=== PATIENT | male | born 1975 ===

== ENCOUNTER 2017-08-20 19:39 | Emergency (ER) | payer OTHER ==
[2017-08-20 20:00] VITALS: RESP 16
[2017-08-20] MEDS ORDERED: Sodium Chloride 0.9% 1,000 ML IV STA (20:54)
--- NOTE | 2017-08-20 21:16 | ED PDOC ---
HPI: Abdomen Time Seen by Provider: 08/20/17 20:00 Chief Complaint (Nursing): Abdominal Pain Chief Complaint (Provider): Abdominal Pain History Per: Patient History/Exam Limitations: no limitations Onset/Duration Of Symptoms: Hrs Current Symptoms Are (Timing): Still Present Location Of Pain/Discomfort: Epigastric Quality Of Discomfort: "Pain" Associated Symptoms: Vomiting. denies: Fever, Diarrhea Additional Complaint(s): 42 year old male, with no past medical history, presents to the ED complaining of epigastric pain associated with vomiting, onset a couple hours prior to arrival. Patient states he took vitamins that contained flax seed oil that helps increase muscle tone when pain began. Denies diarrhea and fever. PMD: None provided Past Medical History Reviewed: Historical Data, Nursing Documentation, Vital Signs Vital Signs: Last Vital Signs Temp 98.2 F 08/20/17 22:46 Pulse 74 08/20/17 22:46 Resp 16 08/20/17 22:46 BP 138/76 08/20/17 22:46 Pulse Ox 98 08/20/17 22:46 - Medical History PMH: No Chronic Diseases - Surgical History Surgical History: No Surg Hx - Family History Family History: States: Unknown Family Hx - Social History Current smoker - smoking cessation education provided: No Alcohol: None Drugs: Denies - Home Medications Home Medications: Ambulatory Orders Medication Instructions Recorded Ondansetron [Zofran] 4 mg PO Q6H PRN #5 tab 08/20/17 - Allergies Allergies/Adverse Reactions: Allergies Allergy/AdvReac Type Severity Reaction Status Date / Time No Known Allergies Allergy Verified 08/20/17 19:58 Review of Systems ROS Statement: Except As Marked, All Systems Reviewed And Found Negative Constitutional: Negative for: Fever Gastrointestinal: Positive for: Vomiting, Abdominal Pain (epigastric pain ). Negative for: Diarrhea Physical Exam - Reviewed Nursing Documentation Reviewed: Yes Vital Signs Reviewed: Yes - Physical Exam Appears: Positive for: Well, Non-toxic, No Acute Distress Head Exam: Positive for: ATRAUMATIC, NORMOCEPHALIC Skin: Positive for: Normal Color, Warm, Dry Eye Exam: Positive for: EOMI, Normal appearance, PERRL ENT: Positive for: Normal ENT Inspection Neck: Positive for: Normal, Painless ROM, Supple Cardiovascular/Chest: Positive for: Regular Rate, Rhythm. Negative for: Murmur Respiratory: Positive for: Normal Breath Sounds. Negative for: Respiratory Distress Gastrointestinal/Abdominal: Positive for: Normal Exam, Bowel Sounds, Soft, Tenderness (mid-epigastric tenderness (mild)) Back: Positive for: Normal Inspection Extremity: Positive for: Normal ROM. Negative for: Pedal Edema, Deformity Neurologic/Psych: Positive for: Alert, Oriented (x3) - Laboratory Results Result Diagrams: 08/20/17 21:21 08/20/17 21:21 - ECG O2 Sat by Pulse Oximetry: 97 (RA) Pulse Ox Interpretation: Normal Medical Decision Making Medical Decision Making: Time: 2104 Plan: ABDOMINAL PAIN SP INGESTION OF FLAX SEED VITAMIN -- CMP -- Lipase -- CBC with differentials -- Morphine 4 mg IV Once -- Sodium Chloride 999 mls/hr Time: 2204 -- Patient feels better and can tolerate PO intake. Time: 2237 -- Patient stable for discharge. Patient states he fully agrees with and understands discharge instructions. States that he agrees with the plan and disposition. Verbalized and repeated discharge instructions and plan. I have given the patient opportunity to ask any additional questions. Scribe Attestation: Documented by Arnoldo Robles, acting as a scribe for Dr. Royce Hollingsworth MD. Provider Scribe Attestation: All medical record entries made by the Scribe were at my direction and personally dictated by me. I have reviewed the chart and agree that the record accurately reflects my personal performance of the history, physical exam, medical decision making, and the department course for this patient. I have also personally directed, reviewed, and agree with the discharge instructions and disposition. Disposition - Clinical Impression Clinical Impression: Abdominal pain - Patient ED Disposition Is Patient to be Admitted: No Counseled Patient/Family Regarding: Studies Performed, Diagnosis, Need For Followup - Disposition Referrals: [facility] [Outside] [facility] [Outside] Disposition: Routine/Home Disposition Time: 22:30 Condition: IMPROVED Additional Instructions: follow up with your primary doctor in 1-2 days return to the ED with any worsening or concerning symptoms avoid flax seed vitamin Prescriptions: Ondansetron [Zofran] 4 mg PO Q6H PRN #5 tab PRN Reason: Nausea/Vomiting Instructions: Nausea and Vomiting, Adult (DC) Forms: [facility] (Japanese) Print Language: SAMI
[2017-08-20 21:29] LABS: BASO # 0.1 K/uL (0.0-0.2); BASO % 0.4 % (0.0-2.0); EOS % 0.1 % (0.0-4.0); LYMPH # 1.5 K/uL (1.0-4.3); LYMPH % 10.4 % (20.0-40.0); MEAN CELL VOLUME 80.9 fl (80.0-94.0); MEAN CORPUSCULAR HGB CONC 33.3 g/dL (33.0-37.0); MEAN PLATELET VOLUME 9.1 fl (7.2-11.7); MONO # 0.5 K/uL (0.0-0.8); MONO % 3.2 % (0.0-10.0); NEUT # 12.3 K/uL (1.8-7.0); NEUT % 85.9 % (50.0-75.0); RBC 5.2 Mil/uL (4.40-5.90); RED CELL DISTRIBUTION WIDTH 14.4 % (11.5-14.5); WHITE BLOOD COUNT 14.3 K/uL (4.8-10.8)
[2017-08-20 21:34] LABS: ALB/GLOB RATIO 1.1 (1.0-2.1); ALBUMIN 4.5 g/dL (3.5-5.0); ALT/SGPT 49 U/L (21-72); AST/SGOT 25 U/L (17-59); BLOOD UREA NITROGEN 16 mg/dl (9-20); CALCIUM 9.2 mg/dL (8.4-10.2); GFR AFRICAN-AMERICAN > 60; GFR NON-AFRICAN AMERICAN > 60; LIPASE 58 U/L (23-300)
[2017-08-20 22:47] VITALS: BP 138/76; PULSE 74; TEMP 98.2
[2017-08-21 21:11] VITALS: O2SAT 97
== END 2017-08-20 22:47 | disposition home or self-care (01) ==
LOC: H.ER 19:39
DX: R10.13 Epigastric pain (principal)
CPT/HCPCS: 80053; 83690; 85025; 99283; J7030

== ENCOUNTER 2017-08-21 22:09 | Inpatient (IN) | payer OTHER ==
[2017-08-21] MEDS ORDERED: Sodium Chloride 0.9% 1,000 ML IV STA (23:31)
[2017-08-21] MEDS ORDERED: Sodium Chloride 0.9% 100 ML ONE (23:55)
[2017-08-21] MEDS ORDERED: Iohexol 300 100 ML IJ ONE (23:55)
[2017-08-22] MEDS ORDERED: Piperacillin/Tazobact 3.375 GM in Sodium Chloride 0.9% 100 ML IV STA (00:02)
--- NOTE | 2017-08-22 00:02 | ED PDOC ---
HPI: Abdomen Time Seen by Provider: 08/21/17 22:23 Chief Complaint (Nursing): Abdominal Pain Chief Complaint (Provider): Abdominal pain History Per: Patient History/Exam Limitations: no limitations Onset/Duration Of Symptoms: Hrs Outside of [place] travel?: No Current Symptoms Are (Timing): Still Present Location Of Pain/Discomfort: RLQ Quality Of Discomfort: "Pain" Additional History Per: Patient Additional Complaint(s): 42yo male, with no past medical history, presents to ED for evaluation of abdominal pain. Patient was seen in this ER 24 hours ago with complaints of abdominal pain and at that time was diagnosed with gastritis and discharged home. Patient states his pain had improved initially but today worsened and now is localized to his right lower quadrant. He reports loss of appetite and states the pain is worse with movement and ambulation. No fever, chills, chest pain, shortness of breath. Patient has no other medical complaints. PMD: None Past Medical History Reviewed: Historical Data, Nursing Documentation, Vital Signs Vital Signs: Last Vital Signs Temp 98.1 F 08/22/17 02:37 Pulse 89 08/22/17 02:37 Resp 19 08/22/17 02:37 BP 116/74 08/22/17 02:37 Pulse Ox 96 08/22/17 02:37 - Medical History PMH: No Chronic Diseases - Surgical History Surgical History: No Surg Hx - Family History Family History: States: No Known Family Hx, Unknown Family Hx - Social History Current smoker - smoking cessation education provided: No Alcohol: None Drugs: Denies - Home Medications Home Medications: Ambulatory Orders Medication Instructions Recorded No Known Home Med 08/22/17 - Allergies Allergies/Adverse Reactions: Allergies Allergy/AdvReac Type Severity Reaction Status Date / Time No Known Allergies Allergy Verified 08/20/17 19:58 Review of Systems ROS Statement: Except As Marked, All Systems Reviewed And Found Negative Constitutional: Negative for: Fever, Chills Cardiovascular: Negative for: Chest Pain Respiratory: Negative for: Shortness of Breath Gastrointestinal: Positive for: Abdominal Pain, Other (loss of appetite) Physical Exam - Reviewed Nursing Documentation Reviewed: Yes Vital Signs Reviewed: Yes - Physical Exam Appears: Positive for: Non-toxic (+ febrile) Skin: Positive for: Warm, Dry Eye Exam: Positive for: Normal appearance Neck: Positive for: Normal, Supple Cardiovascular/Chest: Positive for: Tachycardia Respiratory: Positive for: Normal Breath Sounds Gastrointestinal/Abdominal: Positive for: Soft, Tenderness (+ right lower quadrant tenderness, + McBurney's point tenderness) Extremity: Positive for: Normal ROM Neurologic/Psych: Positive for: Alert, Oriented. Negative for: Motor/Sensory Deficits - Laboratory Results Result Diagrams: 08/22/17 00:05 08/22/17 00:05 Medical Decision Making Medical Decision Making: Impression: 42yo male with acute clinical appendicitis Plan: -- CT Abdomen/Pelvis w/ IV contrast -- Labs -- Morphine 4mg IVP -- IV Fluids -- Tylenol 975mg PO Time: [address] Chan, surgeon freight traffic consultant Time: 26 CT Abdomen and Pelvis w/ IV Contrast FINDINGS: LUNG BASES: No significant abnormality seen. ABDOMEN: LIVER: Fatty infiltration of the liver. GALLBLADDER AND BILE DUCTS: No CT evidence of acute cholecystitis. No evidence of significant biliary ductal dilatation. PANCREAS: No CT evidence of acute pancreatitis. SPLEEN: No acute abnormality of the spleen identified. ADRENALS: No acute abnormality of the adrenal glands identified. KIDNEYS AND URETERS: Tiny, nonobstructing left renal stone. No acute abnormality of the kidneys identified. STOMACH AND BOWEL: No acute abnormality of the stomach, small bowel or colon identified. No evidence of bowel obstruction. No evidence of bowel obstruction. PELVIS: APPENDIX: Appendix is seen, in the right pelvis, extending medially and inferiorly from the cecum. It is abnormally dilated, measuring up to 2 cm in diameter (normal less than 6 mm). There is an appendicolith in the proximal appendiceal lumen. There are moderate inflammatory changes in the periappendiceal fat. Findings are compatible with acute appendicitis. Note is made of a small to moderate amount of periappendiceal fluid. This finding raises suspicion for ruptured appendicitis. No nearby extraluminal air seen to suggest perforated appendicitis. No evidence of a significant focal fluid collection or abscess. BLADDER: No acute abnormality of the bladder identified. REPRODUCTIVE: No acute abnormality of the reproductive organs is seen. ABDOMEN and PELVIS: INTRAPERITONEAL SPACE: Small amount of free fluid in the cul-de-sac, an abnormal finding in a male patient. No evidence of free air. BONES/JOINTS: No acute fractures or other acute bony abnormality noted. SOFT TISSUES: No acute abnormality of the visualized soft tissues is seen. VASCULATURE: No evidence of abdominal aortic aneurysm. No evidence of periaortic hemorrhage. LYMPH NODES: No evidence of diffuse lymphadenopathy. IMPRESSION: - Acute appendicitis, suspected to be ruptured based on the presence of periappendiceal fluid. No evidence of free air/perforation or abscess formation. - Small amount of pelvic free fluid. - See above for remaining findings. Time: [address] Justin, assembler surgical garment who will evaluate patient at bedside. Time: [address] Huertas, hospitalist freight traffic consultant and patient admitted under his service for acute ruptured appendicitis. Dr. Chan placed on surgery consult. Scribe Attestation: Documented by Shanta Jo, acting as a scribe for Dash Huang MD Provider Scribe Attestation: All medical record entries made by the Scribe were at my direction and personally dictated by me. I have reviewed the chart and agree that the record accurately reflects my personal performance of the history, physical exam, medical decision making, and the department course for this patient. I have also personally directed, reviewed, and agree with the discharge instructions and disposition. Disposition - Clinical Impression Clinical Impression: Acute appendicitis with rupture - Patient ED Disposition Is Patient to be Admitted: Yes Discussed With DrSheryl: Austyn Chan - Disposition Disposition Time: 00:40 Condition: FAIR
[2017-08-22] MEDS ORDERED: Piperacillin/Tazobact 3.375 gm Inj IVPB ONE (00:04)
[2017-08-22 00:08] LABS: BASO # 0.1 K/uL (0.0-0.2); BASO % 0.6 % (0.0-2.0); HEMOGLOBIN 13.9 g/dL (12.0-18.0); LYMPH # 1.3 K/uL (1.0-4.3); LYMPH % 6.9 % (20.0-40.0); MEAN CELL VOLUME 80.7 fl (80.0-94.0); MEAN CORPUSCULAR HEMOGLOBIN 27.2 pg (27.0-31.0); MEAN CORPUSCULAR HGB CONC 33.7 g/dL (33.0-37.0); MEAN PLATELET VOLUME 8.4 fl (7.2-11.7); MONO # 0.8 K/uL (0.0-0.8); MONO % 4.5 % (0.0-10.0); NEUT # 16.3 K/uL (1.8-7.0); PLATELET COUNT 261 K/uL (130-400); RBC 5.13 Mil/uL (4.40-5.90); RED CELL DISTRIBUTION WIDTH 14.7 % (11.5-14.5); WHITE BLOOD COUNT 18.6 K/uL (4.8-10.8)
[2017-08-22 00:21] LABS: ALB/GLOB RATIO 1.1 (1.0-2.1); ALBUMIN 4.2 g/dL (3.5-5.0); ALT/SGPT 32 U/L (21-72); AST/SGOT 18 U/L (17-59); BLOOD UREA NITROGEN 11 mg/dl (9-20); CALCIUM 9.4 mg/dL (8.4-10.2); GFR AFRICAN-AMERICAN > 60; GFR NON-AFRICAN AMERICAN > 60; LIPASE 55 U/L (23-300)
--- NOTE | 2017-08-22 00:27 | CT ---
EXAM: CT Abdomen and Pelvis With Intravenous Contrast EXAM DATE/TIME: 08/21/2017 11:36 PM CLINICAL HISTORY: 42 years old, male; Pain; Abdominal pain; Localized; Right lower quadrant (rlq); Additional info: Rlq pain TECHNIQUE: Axial computed tomography images of the abdomen and pelvis with intravenous contrast. All CT scans at this facility use one or more dose reduction techniques, viz.: automated exposure control; ma/kV adjustment per patient size (including targeted exams where dose is matched to indication; i.e. head); or iterative reconstruction technique. Coronal and sagittal reformatted images were created and reviewed. CONTRAST: 90 mL of [id number] administered intravenously. COMPARISON: No relevant prior studies available. FINDINGS: LUNG BASES: No significant abnormality seen. ABDOMEN: LIVER: Fatty infiltration of the liver. GALLBLADDER AND BILE DUCTS: No CT evidence of acute cholecystitis. No evidence of significant biliary ductal dilatation. PANCREAS: No CT evidence of acute pancreatitis. SPLEEN: No acute abnormality of the spleen identified. ADRENALS: No acute abnormality of the adrenal glands identified. KIDNEYS AND URETERS: Tiny, nonobstructing left renal stone. No acute abnormality of the kidneys identified. STOMACH AND BOWEL: No acute abnormality of the stomach, small bowel or colon identified. No evidence of bowel obstruction. No evidence of bowel obstruction. PELVIS: APPENDIX: Appendix is seen, in the right pelvis, extending medially and inferiorly from the cecum. It is abnormally dilated, measuring up to 2 cm in diameter (normal less than 6 mm). There is an appendicolith in the proximal appendiceal lumen. There are moderate inflammatory changes in the periappendiceal fat. Findings are compatible with acute appendicitis. Note is made of a small to moderate amount of periappendiceal fluid. This finding raises suspicion for ruptured appendicitis. No nearby extraluminal air seen to suggest perforated appendicitis. No evidence of a significant focal fluid collection or abscess. BLADDER: No acute abnormality of the bladder identified. REPRODUCTIVE: No acute abnormality of the reproductive organs is seen. ABDOMEN and PELVIS: INTRAPERITONEAL SPACE: Small amount of free fluid in the cul-de-sac, an abnormal finding in a male patient. No evidence of free air. BONES/JOINTS: No acute fractures or other acute bony abnormality noted. SOFT TISSUES: No acute abnormality of the visualized soft tissues is seen. VASCULATURE: No evidence of abdominal aortic aneurysm. No evidence of periaortic hemorrhage. LYMPH NODES: No evidence of diffuse lymphadenopathy. IMPRESSION: - Acute appendicitis, suspected to be ruptured based on the presence of periappendiceal fluid. No evidence of free air/perforation or abscess formation. - Small amount of pelvic free fluid. - See above for remaining findings.
[2017-08-22] MEDS ORDERED: Lactated Ringer's 1,000 ML IV SCH (01:00)
--- NOTE | 2017-08-22 01:19 | CP.PCM.CON ---
Addendum entered and electronically signed by Michael Christie DO 08/22/17 09:12: Perforated appendicitis No acute surgical intervention at this present time Will continue IV ABx NPO OK to have ice chips D/w Dr. Yung SCHAFER PGY2 Original Note: History of Present Illness - History of Present Illness History of Present Illness: General Surgery Consult Re: Appendicitis HPI: 42M presents to the ED C/O RLQ abdominal pain x ~20 hours. He had been seen in the ED Saturday evening with epigastric pain associated with emesis and was discharged. He reports the pain migrated to the RLQ and has gotten worse. + subjective fever. At this time, denies chills, SOB, N/V, diarrhea, melena, hematochezia. Last BM yesterday was normal. PMH: Denies PSH: Denies SH: No tobacco or drug use. Social EtOH All: NKDA Meds: Denies Review of Systems - Review of Systems All systems: reviewed and no additional remarkable complaints except (as per HPI ) Past Patient History - Infectious Disease Hx of Infectious Diseases: None - Past Social History Smoking Status: Never Smoked - PSYCHIATRIC Hx Substance Use: No Meds Allergies/Adverse Reactions: Allergies Allergy/AdvReac Type Severity Reaction Status Date / Time No Known Allergies Allergy Verified 08/20/17 19:58 - Medications Medications: Current Medications Acetaminophen (Tylenol 325mg Tab) 650 mg PO Q6 PRN PRN Reason: Fever >100.4 F Hydromorphone HCl (Dilaudid) 0.5 mg IVP Q6 PRN PRN Reason: Pain, moderate (4-7) Hydromorphone HCl (Dilaudid) 1 mg IVP Q6H PRN PRN Reason: Pain, severe (8-10) Piperacillin Sod/Tazobactam (Sod 3.375 gm/ Sodium Chloride) 100 mls @ 100 mls/ hr IVPB Q6 SHANKAR PRN Reason: Protocol Lactated Ringer's (Lactated Ringer's) 1,000 mls @ 100 mls/hr IV .Q10H SHANKAR Ondansetron HCl (Zofran Inj) 4 mg IVP Q6 PRN PRN Reason: Nausea/Vomiting Physical Exam - Constitutional Appears: Non-toxic, No Acute Distress - Head Exam Head Exam: ATRAUMATIC, NORMOCEPHALIC - Eye Exam Eye Exam: EOMI. absent: Scleral icterus - ENT Exam ENT Exam: Mucous Membranes Moist Additional comments: trachea midline - Neck Exam Neck exam: Positive for: Full Rom. Negative for: Tenderness - Respiratory Exam Respiratory Exam: NORMAL BREATHING PATTERN. absent: Respiratory Distress - Cardiovascular Exam Cardiovascular Exam: RRR, +S1, +S2 - GI/Abdominal Exam GI & Abdominal Exam: Guarding, Rebound, Soft, Tenderness (in RLQ). absent: Distended, Firm, Rigid - Rectal Exam Rectal Exam: Deferred - Extremities Exam Extremities exam: Negative for: calf tenderness, pedal edema - Back Exam Back exam: absent: CVA tenderness (L), CVA tenderness (R) - Neurological Exam Neurological exam: Alert, Oriented x3 - Skin Skin Exam: Dry, Warm Results - Vital Signs Recent Vital Signs: Last Vital Signs Temp 100.8 F H 08/21/17 22:11 Pulse 138 H 08/21/17 22:11 Resp 16 08/21/17 22:11 BP 109/75 08/21/17 22:11 Pulse Ox - Labs Result Diagrams: 08/22/17 00:05 08/22/17 00:05 Labs: Laboratory Results - last 24 hr 08/22/17 08/22/17 08/22/17 00:05 00:05 00:05 WBC 18.6 H RBC 5.13 Hgb 13.9 Hct 41.4 MCV 80.7 MCH 27.2 MCHC 33.7 RDW 14.7 H Plt Count 261 MPV 8.4 Neut % (Auto) 88.0 H Lymph % (Auto) 6.9 L [place] % (Auto) 4.5 Eos % (Auto) 0.0 Baso % (Auto) 0.6 Neut # (Auto) 16.3 H Lymph # (Auto) 1.3 [place] # (Auto) 0.8 Eos # (Auto) 0.0 Baso # (Auto) 0.1 Sodium 138 Potassium 3.6 Chloride 99 Carbon Dioxide 21 L Anion Gap 22 H BUN 11 Creatinine 0.8 Est GFR ( Amer) > 60 Est GFR (Non-Af Amer) > 60 Random Glucose 130 H Lactic Acid 0.8 Calcium 9.4 Total Bilirubin 2.6 H AST 18 ALT 32 Alkaline Phosphatase 85 Total Protein 8.2 Albumin 4.2 Globulin 4.0 H Albumin/Globulin Ratio 1.1 Lipase 55 - Imaging and Cardiology CT scan - abdomen Status: Image reviewed by me, Report reviewed by me Assessment & Plan - Assessment and Plan (Free Text) Assessment: 42M with acute appendicitis Plan: NPO IVF Continue zosyn Preop labs Zofran prn Analgesia PRN D/W Dr. Dustin Justin PGY4
--- NOTE | 2017-08-22 01:22 | CP.PCM.HP ---
History of Present Illness - History of Present Illness History of Present Illness: CC: abdominal pain This is a 42 year old male with no significant past medical history who presents to the ED with the complaint of epigastric pain, nausea, and vomiting beginning the evening of 08/20. The patient initially presented to the ED on that day and was discharged. The patient is now presenting to the ED with worsening abdominal pain, characterized as sharp, moderate to severe, and associated with nausea and vomiting. The patient underwent CT scan that reveals acute appendicitis, with periappendiceal fluid concerning for rupture. No evidence of free air/perforation or abscess formation. Labwork shows leukocytosis of 18.6, neutrophil count of 16.3 (increased since 08/20). Also elevation of total bilirubin to 2.6, however no increase in transaminase levels or lipase. He was given analgesia and Iv antibiotics in the ED and is now being admitted to med/surg with surgeon on consult, Dr. Chan. Patient denies chest pain, shortness of breath, diarrhea, headache. All of the patient's and/or family's questions were answered at the bedside. Present on Admission - Present on Admission Any Indicators Present on Admission: No History of DVT/PE: No History of Uncontrolled Diabetes: No Review of Systems - Review of Systems Review of Systems: A 12 point review of systems was conducted and found to be negative other than what was mentioned in the HPI. Past Patient History - Infectious Disease Hx of Infectious Diseases: None - Past Medical History & Family History Past Medical History?: No Past Family History: Reviewed and not pertinent - Past Social History Smoking Status: Never Smoked Alcohol: None Drugs: Denies - PSYCHIATRIC Hx Substance Use: No Meds Allergies/Adverse Reactions: Allergies Allergy/AdvReac Type Severity Reaction Status Date / Time No Known Allergies Allergy Verified 08/20/17 19:58 Physical Exam - Additional Findings Additional findings: Physical exam: Constitutional- cooperative, awake, alert Head- NCAT, PERRL Eye- PERRL, EOMI ENT- normal exam, MMM. Neck- normal inspection, supple, no JVD Respiratory- CTAB, no wheezes rales rhonchi Cardiovascular- RRR, +S1, +S2 no MRG GI/Abdominal- + Epigastric and RLQ tenderness to palpation. normal bowel sounds , soft, no mass, no hsm Skin- warm, dry Extremities Exam- normal capillary refill, normal inspection Neurological Exam- alert, awake, oriented Psych- normal mood, normal affect Results - Vital Signs Recent Vital Signs: Last Vital Signs Temp 100.8 F H 08/21/17 22:11 Pulse 138 H 08/21/17 22:11 Resp 16 08/21/17 22:11 BP 109/75 08/21/17 22:11 Pulse Ox - Labs Result Diagrams: 08/22/17 00:05 08/22/17 00:05 Labs: Laboratory Results - last 24 hr 08/22/17 08/22/17 08/22/17 00:05 00:05 00:05 WBC 18.6 H RBC 5.13 Hgb 13.9 Hct 41.4 MCV 80.7 MCH 27.2 MCHC 33.7 RDW 14.7 H Plt Count 261 MPV 8.4 Neut % (Auto) 88.0 H Lymph % (Auto) 6.9 L [place] % (Auto) 4.5 Eos % (Auto) 0.0 Baso % (Auto) 0.6 Neut # (Auto) 16.3 H Lymph # (Auto) 1.3 [place] # (Auto) 0.8 Eos # (Auto) 0.0 Baso # (Auto) 0.1 Sodium 138 Potassium 3.6 Chloride 99 Carbon Dioxide 21 L Anion Gap 22 H BUN 11 Creatinine 0.8 Est GFR ( Amer) > 60 Est GFR (Non-Af Amer) > 60 Random Glucose 130 H Lactic Acid 0.8 Calcium 9.4 Total Bilirubin 2.6 H AST 18 ALT 32 Alkaline Phosphatase 85 Total Protein 8.2 Albumin 4.2 Globulin 4.0 H Albumin/Globulin Ratio 1.1 Lipase 55 Assessment & Plan - Assessment and Plan (Free Text) Plan: This is a 42 year old male with no significant past medical history who presents to the ED with the complaint of epigastric pain, nausea, and vomiting beginning the evening of 08/20., now being admitted to med/surg for acute ruptured appendicitis. 1) Acute ruptured appendicitis - Admit to med/surg - Consultation with Dr. Chan appreciated- pt likely for surgery - NPO status - Tylenol PRN for pain - Zofran PRN for n/v - Continue Zosyn 3.375 gm q6h for empiric coverage of gram neg / anaerobic organisms - Dilaudid sliding scale for pain - F/u BCX - Patient at acceptable medical risk for laparascopic vs open appendectomy 2) Leukocytosis, neutrophilia - secondary to above 3) DVT prophylaxis - SCDs
[2017-08-22 02:31] LABS: ANISOCYTOSIS SLIGHT; BANDS 1 % (0-2); BASOPHIL 1 % (0-2); LYMPHOCYTE 10 % (20-50); MONOCYTE 3 % (0-10); NEUTROPHIL 85 % (42-75); PLATELET ESTIMATE NORMAL (NORMAL); TOTAL CELLS COUNTED 100
[2017-08-22] MEDS: HYDROmorphone 0.5 mg/0.5 ml ISec IVP PRN ×3 (05:46→20:50)
[2017-08-22] MEDS: Piperacillin/Tazobact 3.375 GM in Sodium Chloride 0.9% 100 ML IVPB SCH ×4 (05:48→23:48)
[2017-08-22 07:45] LABS: HEMOGLOBIN 13.2 g/dL (12.0-18.0); MEAN CELL VOLUME 80.5 fl (80.0-94.0); MEAN CORPUSCULAR HEMOGLOBIN 27.2 pg (27.0-31.0); MEAN CORPUSCULAR HGB CONC 33.7 g/dL (33.0-37.0); RBC 4.87 Mil/uL (4.40-5.90); RED CELL DISTRIBUTION WIDTH 14.6 % (11.5-14.5); WHITE BLOOD COUNT 13.6 K/uL (4.8-10.8)
[2017-08-22 07:53] LABS: BLOOD UREA NITROGEN 10 mg/dl (9-20); CALCIUM 8.4 mg/dL (8.4-10.2); GFR AFRICAN-AMERICAN > 60; GFR NON-AFRICAN AMERICAN > 60
[2017-08-22] MEDS: Lactated Ringer's 1,000 ML IV SCH ×2 (08:18→16:13)
[2017-08-22 08:24] LABS: INR 1.4 (0.9-1.2); PROTHROMBIN TIME 15.9 Seconds (9.8-13.1)
[2017-08-22 08:25] LABS: PARTIAL THROMBOPLASTIN TIME 26.3 Seconds (25.6-37.1)
--- NOTE | 2017-08-22 09:08 | CARD ---
APPROVED REPORT EKG Measurement Heart [id number] <Conclusion> Normal sinus rhythm Incomplete right bundle branch block Abnormal ECG
[2017-08-22] MEDS: metroNIDAZOLE 500mg/100ml NS 100 ML IVPB SCH (19:19)
[2017-08-23] MEDS: metroNIDAZOLE 500mg/100ml NS 100 ML IVPB SCH ×3 (00:55→16:14)
[2017-08-23] MEDS: Lactated Ringer's 1,000 ML IV SCH ×4 (00:56→17:44)
[2017-08-23] MEDS: HYDROmorphone 0.5 mg/0.5 ml ISec IVP PRN ×2 (02:56→08:18)
[2017-08-23] MEDS: Piperacillin/Tazobact 3.375 GM in Sodium Chloride 0.9% 100 ML IVPB SCH ×2 (06:05→13:13)
--- NOTE | 2017-08-23 08:15 | CP.PCM.PN ---
Subjective - Date & Time of Evaluation Date of Evaluation: 08/23/17 Time of Evaluation: 07:00 - Subjective Subjective: General Surgery Pt S&E, Tmax 100.8. Pain improving, + Flatus. No other Complaints Objective - Vital Signs/Intake and Output Vital Signs (last 24 hours): Temp Pulse Resp BP Pulse Ox 98.8 F 106 H 18 106/71 96 08/23/17 04:35 08/22/17 23:30 08/22/17 23:30 08/22/17 23:30 08/22/17 23:30 - Medications Medications: Current Medications Acetaminophen (Tylenol 325mg Tab) 650 mg PO Q6 PRN PRN Reason: Fever >100.4 F Last Admin: 08/23/17 03:35 Dose: 650 mg Acetaminophen (Tylenol 650 Mg Supp) 650 mg [place] ONCE SHANKAR Last Admin: 08/22/17 08:18 Dose: 650 mg Hydromorphone HCl (Dilaudid) 1 mg IVP Q6H PRN PRN Reason: Pain, severe (8-10) Last Admin: 08/22/17 10:31 Dose: 1 mg Hydromorphone HCl (Dilaudid) 0.5 mg IVP Q6 PRN PRN Reason: Pain, moderate (4-7) Last Admin: 08/23/17 02:56 Dose: 0.5 mg Piperacillin Sod/Tazobactam (Sod 3.375 gm/ Sodium Chloride) 100 mls @ 100 mls/ hr IVPB Q6H SHANKAR PRN Reason: Protocol Last Admin: 08/23/17 06:05 Dose: 100 mls/hr Lactated Ringer's (Lactated Ringer's) 1,000 mls @ 125 mls/hr IV .Q8H [facility] Last Admin: 08/23/17 02:59 Dose: 125 mls/hr Metronidazole (Flagyl 500mg/100ml Ns) 100 mls @ 100 mls/hr IVPB Q8 SHANKAR PRN Reason: Protocol Last Admin: 08/23/17 00:55 Dose: 100 mls/hr Ibuprofen (Motrin Tab) 600 mg PO Q6 PRN PRN Reason: Headache Last Admin: 08/22/17 17:33 Dose: 600 mg Ondansetron HCl (Zofran Inj) 4 mg IVP Q6 PRN PRN Reason: Nausea/Vomiting - Labs Labs: 08/22/17 06:14 08/22/17 06:14 PT 15.9 Seconds (9.8-13.1) H 08/22/17 07:44 INR 1.4 (0.9-1.2) H 08/22/17 07:44 APTT 26.3 Seconds (25.6-37.1) 08/22/17 07:44 - Constitutional Appears: Non-toxic, No Acute Distress - Head Exam Head Exam: ATRAUMATIC, NORMOCEPHALIC - Eye Exam Eye Exam: EOMI. absent: Scleral icterus - Respiratory Exam Respiratory Exam: NORMAL BREATHING PATTERN. absent: Respiratory Distress - GI/Abdominal Exam GI & Abdominal Exam: Guarding (mild), Soft, Tenderness (RLQ). absent: Distended , Firm, Rigid, Rebound - Neurological Exam Neurological Exam: Alert, Awake, Oriented x3 - Skin Skin Exam: Dry, Warm Assessment and Plan - Assessment and Plan (Free Text) Assessment: 42M with perforated appendicitis Plan: Serial abd exams Continue Abx Analgesia Am Labs Justin PGY4
[2017-08-23 09:05] LABS: BASO % 0.1 % (0.0-2.0); HEMOGLOBIN 12.8 g/dL (12.0-18.0); LYMPH % 7.6 % (20.0-40.0); MEAN CELL VOLUME 81.1 fl (80.0-94.0); MEAN CORPUSCULAR HEMOGLOBIN 27.1 pg (27.0-31.0); MEAN CORPUSCULAR HGB CONC 33.4 g/dL (33.0-37.0); MEAN PLATELET VOLUME 8.8 fl (7.2-11.7); MONO # 0.6 K/uL (0.0-0.8); MONO % 4.6 % (0.0-10.0); NEUT # 11.8 K/uL (1.8-7.0); NEUT % 87.7 % (50.0-75.0); RBC 4.72 Mil/uL (4.40-5.90); RED CELL DISTRIBUTION WIDTH 14.5 % (11.5-14.5); WHITE BLOOD COUNT 13.5 K/uL (4.8-10.8)
[2017-08-23 09:21] LABS: BLOOD UREA NITROGEN 14 mg/dl (9-20); CALCIUM 8.4 mg/dL (8.4-10.2); GFR AFRICAN-AMERICAN > 60; GFR NON-AFRICAN AMERICAN > 60
--- NOTE | 2017-08-23 10:29 | CP.PCM.PN ---
Subjective - Date & Time of Evaluation Date of Evaluation: 08/23/17 Time of Evaluation: 10:25 - Subjective Subjective: Pt seen and examined sitting in bed today. He reports significant abdominal pain relief. He wants to drink fluids today. (-) N/V/D/C. Pt with low grade fever this AM of 100/8 Labs reviewed, WBC improved PE: Gen: Sitting in NAD in bed Skin: warm and dry Cardio: S1S2 RRR Lungs: CTA bilaterally Abd: (+) mild RLQ tenderness, otherwise belly is soft and not distended. A/P Perforated appendix Continue with IV Antibiotics Try clear liquid diet today, advance diet slowly as tolerated Pt will not be having surgery during this admission Case discussed with Dr. Barragan and Surgery team. Objective - Vital Signs/Intake and Output Vital Signs (last 24 hours): Temp Pulse Resp BP Pulse Ox 100 F H 105 H 20 114/75 95 08/23/17 09:00 08/23/17 09:00 08/23/17 09:00 08/23/17 09:00 08/23/17 09:00 - Medications Medications: Current Medications Acetaminophen (Tylenol 325mg Tab) 650 mg PO Q6 PRN PRN Reason: Fever >100.4 F Last Admin: 08/23/17 08:32 Dose: 650 mg Acetaminophen (Tylenol 650 Mg Supp) 650 mg [place] ONCE SHANKAR Last Admin: 08/22/17 08:18 Dose: 650 mg Hydromorphone HCl (Dilaudid) 1 mg IVP Q6H PRN PRN Reason: Pain, severe (8-10) Last Admin: 08/23/17 08:18 Dose: 1 mg Hydromorphone HCl (Dilaudid) 0.5 mg IVP Q6 PRN PRN Reason: Pain, moderate (4-7) Last Admin: 08/23/17 02:56 Dose: 0.5 mg Piperacillin Sod/Tazobactam (Sod 3.375 gm/ Sodium Chloride) 100 mls @ 100 mls/ hr IVPB Q6H SHANKAR PRN Reason: Protocol Last Admin: 08/23/17 06:05 Dose: 100 mls/hr Lactated Ringer's (Lactated Ringer's) 1,000 mls @ 125 mls/hr IV .Q8H [facility] Last Admin: 08/23/17 02:59 Dose: 125 mls/hr Metronidazole (Flagyl 500mg/100ml Ns) 100 mls @ 100 mls/hr IVPB Q8 SHANKAR PRN Reason: Protocol Last Admin: 08/23/17 08:24 Dose: 100 mls/hr Ibuprofen (Motrin Tab) 600 mg PO Q6 PRN PRN Reason: Headache Last Admin: 08/22/17 17:33 Dose: 600 mg Ondansetron HCl (Zofran Inj) 4 mg IVP Q6 PRN PRN Reason: Nausea/Vomiting - Labs Labs: 08/23/17 08:40 08/23/17 08:40 PT 15.9 Seconds (9.8-13.1) H 08/22/17 07:44 INR 1.4 (0.9-1.2) H 08/22/17 07:44 APTT 26.3 Seconds (25.6-37.1) 08/22/17 07:44
[2017-08-23] MEDS ORDERED: Potassium Chloride 20 mEq ER Tab PO ONE (10:54)
--- NOTE | 2017-08-23 16:56 | CP.PCM.CON ---
History of Present Illness - History of Present Illness History of Present Illness: 42 yo male with persistent fever and abd pain despite approptiate antibiotics for acute appendicitis In view of this would recommend to add Merrem and consider repeat CT abd / pelvis to r/o drainable abscess will reculture , send stat lactic acid level and monitor closely for signs of obstruction/ peritonitis Review of Systems - Review of Systems All systems: reviewed and no additional remarkable complaints except Past Patient History - Infectious Disease Hx of Infectious Diseases: None - Past Medical History & Family History Past Medical History?: No - Past Social History Alcohol: None Drugs: Denies - CARDIAC Hx Cardiac Disorders: No - PULMONARY Hx Respiratory Disorders: No - NEUROLOGICAL Hx Neurological Disorder: No - HEENT Hx HEENT Problems: No - RENAL Hx Chronic Kidney Disease: No - ENDOCRINE/METABOLIC Hx Endocrine Disorders: No - HEMATOLOGICAL/ONCOLOGICAL Hx Blood Disorders: No Hx AIDS: No Hx Human Immunodeficiency Virus (HIV): No - INTEGUMENTARY Hx Dermatological Problems: No - MUSCULOSKELETAL/RHEUMATOLOGICAL Hx Musculoskeletal Disorders: No Hx Falls: No - GASTROINTESTINAL Hx Gastrointestinal Disorders: No - GENITOURINARY/GYNECOLOGICAL Hx Genitourinary Disorders: No - PSYCHIATRIC Hx Psychophysiologic Disorder: No Hx Substance Use: No - SURGICAL HISTORY Hx Surgeries: No - ANESTHESIA Hx Anesthesia: No Meds Allergies/Adverse Reactions: Allergies Allergy/AdvReac Type Severity Reaction Status Date / Time No Known Allergies Allergy Verified 08/20/17 19:58 - Medications Medications: Current Medications Acetaminophen (Tylenol 325mg Tab) 650 mg PO Q6 PRN PRN Reason: Fever >100.4 F Last Admin: 08/23/17 15:23 Dose: 650 mg Acetaminophen (Tylenol 650 Mg Supp) 650 mg [place] ONCE SHANKAR Last Admin: 08/22/17 08:18 Dose: 650 mg Hydromorphone HCl (Dilaudid) 1 mg IVP Q6H PRN PRN Reason: Pain, severe (8-10) Last Admin: 08/23/17 08:18 Dose: 1 mg Hydromorphone HCl (Dilaudid) 0.5 mg IVP Q6 PRN PRN Reason: Pain, moderate (4-7) Last Admin: 08/23/17 02:56 Dose: 0.5 mg Lactated Ringer's (Lactated Ringer's) 1,000 mls @ 125 mls/hr IV .Q8H [facility] Last Admin: 08/23/17 13:13 Dose: 125 mls/hr Metronidazole (Flagyl 500mg/100ml Ns) 100 mls @ 100 mls/hr IVPB Q8 SHANKAR PRN Reason: Protocol Last Admin: 08/23/17 16:14 Dose: 100 mls/hr Meropenem 1 gm/ Sodium (Chloride) 100 mls @ 100 mls/hr IVPB Q8 SHANKAR PRN Reason: Protocol Ibuprofen (Motrin Tab) 600 mg PO Q6 PRN PRN Reason: Headache Last Admin: 08/23/17 16:44 Dose: 600 mg Ondansetron HCl (Zofran Inj) 4 mg IVP Q6 PRN PRN Reason: Nausea/Vomiting Physical Exam - Constitutional Appears: Well - Head Exam Head Exam: ATRAUMATIC - Eye Exam Eye Exam: EOMI, Normal appearance, PERRL Pupil Exam: NORMAL ACCOMODATION, PERRL - ENT Exam ENT Exam: Mucous Membranes Moist, Normal Exam - Neck Exam Neck exam: Positive for: Normal Inspection - Respiratory Exam Respiratory Exam: Clear to Auscultation Bilateral, NORMAL BREATHING PATTERN - Cardiovascular Exam Cardiovascular Exam: REGULAR RHYTHM - GI/Abdominal Exam GI & Abdominal Exam: Diminished Bowel Sounds, Guarding, Soft, Tenderness - Rectal Exam Rectal Exam: NORMAL INSPECTION - Exam Exam: Circumcision, NORMAL INSPECTION - Extremities Exam Extremities exam: Positive for: normal inspection - Back Exam Back exam: NORMAL INSPECTION - Neurological Exam Neurological exam: Alert, CN II-XII Intact, Normal Gait, Oriented x3, Reflexes Normal - Psychiatric Exam Psychiatric exam: Normal Affect, Normal Mood - Skin Skin Exam: Dry, Intact, Normal Color, Warm Results - Vital Signs Recent Vital Signs: Last Vital Signs Temp 102.8 F H 08/23/17 16:25 Pulse 121 H 08/23/17 16:25 Resp 20 08/23/17 16:25 BP 118/71 08/23/17 16:25 Pulse Ox 94 L 08/23/17 16:25 - Labs Result Diagrams: 08/25/17 05:30 08/25/17 05:30 Labs: Laboratory Results - last 24 hr 08/23/17 08/23/17 08:40 08:40 WBC 13.5 H RBC 4.72 Hgb 12.8 Hct 38.2 MCV 81.1 MCH 27.1 MCHC 33.4 RDW 14.5 Plt Count 200 MPV 8.8 Neut % (Auto) 87.7 H Lymph % (Auto) 7.6 L [place] % (Auto) 4.6 Eos % (Auto) 0.0 Baso % (Auto) 0.1 Neut # (Auto) 11.8 H Lymph # (Auto) 1.0 [place] # (Auto) 0.6 Eos # (Auto) 0.0 Baso # (Auto) 0.0 Sodium 137 Potassium 3.5 L Chloride 102 Carbon Dioxide 20 L Anion Gap 19 BUN 14 Creatinine 0.6 L Est GFR ( Amer) > 60 Est GFR (Non-Af Amer) > 60 Random Glucose 129 H Calcium 8.4 Assessment & Plan - Assessment and Plan (Free Text) Assessment: 42 yo male with persistent fever and abd pain despite approptiate antibiotics for acute appendicitis In view of this would recommend to add Merrem and consider repeat CT abd / pelvis to r/o drainable abscess will reculture , send stat lactic acid level and monitor closely for signs of obstruction/ peritonitis
--- NOTE | 2017-08-23 17:26 | CP.PCM.PN ---
Subjective - Date & Time of Evaluation Date of Evaluation: 08/23/17 Time of Evaluation: 14:00 - Subjective Subjective: Patient seen and examined. Claimed he felt much better. Still having abdominal pain but much lesser. Still having on and off fever. Objective - Vital Signs/Intake and Output Vital Signs (last 24 hours): Temp Pulse Resp BP Pulse Ox 102.8 F H 121 H 20 118/71 94 L 08/23/17 16:25 08/23/17 16:25 08/23/17 16:25 08/23/17 16:25 08/23/17 16:25 - Medications Medications: Current Medications Acetaminophen (Tylenol 325mg Tab) 650 mg PO Q6 PRN PRN Reason: Fever >100.4 F Last Admin: 08/23/17 15:23 Dose: 650 mg Acetaminophen (Tylenol 650 Mg Supp) 650 mg [place] ONCE [facility] Last Admin: 08/22/17 08:18 Dose: 650 mg Hydromorphone HCl (Dilaudid) 1 mg IVP Q6H PRN PRN Reason: Pain, severe (8-10) Last Admin: 08/23/17 08:18 Dose: 1 mg Hydromorphone HCl (Dilaudid) 0.5 mg IVP Q6 PRN PRN Reason: Pain, moderate (4-7) Last Admin: 08/23/17 02:56 Dose: 0.5 mg Lactated Ringer's (Lactated Ringer's) 1,000 mls @ 125 mls/hr IV .Q8H [facility] Last Admin: 08/23/17 13:13 Dose: 125 mls/hr Metronidazole (Flagyl 500mg/100ml Ns) 100 mls @ 100 mls/hr IVPB Q8 SHANKAR PRN Reason: Protocol Last Admin: 08/23/17 16:14 Dose: 100 mls/hr Meropenem 1 gm/ Sodium (Chloride) 100 mls @ 100 mls/hr IVPB Q8 SHANKAR PRN Reason: Protocol Ibuprofen (Motrin Tab) 600 mg PO Q6 PRN PRN Reason: Headache Last Admin: 08/23/17 16:44 Dose: 600 mg Ondansetron HCl (Zofran Inj) 4 mg IVP Q6 PRN PRN Reason: Nausea/Vomiting - Labs Labs: 08/23/17 08:40 08/23/17 08:40 PT 15.9 Seconds (9.8-13.1) H 08/22/17 07:44 INR 1.4 (0.9-1.2) H 08/22/17 07:44 APTT 26.3 Seconds (25.6-37.1) 08/22/17 07:44 - Constitutional Appears: No Acute Distress - Head Exam Head Exam: ATRAUMATIC - Eye Exam Eye Exam: absent: Scleral icterus - ENT Exam ENT Exam: Mucous Membranes Moist - Neck Exam Neck Exam: absent: Meningismus - Respiratory Exam Respiratory Exam: absent: Rales, Rhonchi, Wheezes, Respiratory Distress - Cardiovascular Exam Cardiovascular Exam: REGULAR RHYTHM, +S1, +S2 - GI/Abdominal Exam GI & Abdominal Exam: Soft, Tenderness (tenderness on RLQ on deep palpation). absent: Guarding, Rigid, Rebound - Rectal Exam Rectal Exam: Deferred - Extremities Exam Extremities Exam: absent: Calf Tenderness, Pedal Edema - Back Exam Back Exam: NORMAL INSPECTION - Neurological Exam Neurological Exam: Alert, Oriented x3 - Psychiatric Exam Psychiatric exam: Normal Affect - Skin Skin Exam: Dry, Intact Assessment and Plan - Assessment and Plan (Free Text) Assessment: 42 yo male with no significant PMH came in complaining of abdominal pain associated with nausea and vomiting. 1. Acute Ruptured Appendicitis continue to be febrile with leukocytosis ID consult with Dr Dyan Drew switched to Merrem IV 1gm q 8hrs continue Flagyl 500mg IV q 8hrs Dr Chan group on surgical consult
[2017-08-23] MEDS: Meropenem 1 GM in Sodium Chloride 0.9% 100 ML IVPB SCH (17:43)
[2017-08-24] MEDS: metroNIDAZOLE 500mg/100ml NS 100 ML IVPB SCH ×3 (00:05→16:09)
[2017-08-24] MEDS: Lactated Ringer's 1,000 ML IV SCH ×3 (00:08→14:00)
[2017-08-24] MEDS: Meropenem 1 GM in Sodium Chloride 0.9% 100 ML IVPB SCH ×3 (01:02→16:09)
[2017-08-24 07:05] LABS: BASO % 0.2 % (0.0-2.0); EOS % 0.2 % (0.0-4.0); HEMOGLOBIN 11.6 g/dL (12.0-18.0); LYMPH # 1.1 K/uL (1.0-4.3); MEAN CELL VOLUME 81.1 fl (80.0-94.0); MEAN CORPUSCULAR HGB CONC 33.3 g/dL (33.0-37.0); MEAN PLATELET VOLUME 8.9 fl (7.2-11.7); MONO # 0.6 K/uL (0.0-0.8); MONO % 5.4 % (0.0-10.0); NEUT # 10.2 K/uL (1.8-7.0); NEUT % 85.2 % (50.0-75.0); RBC 4.3 Mil/uL (4.40-5.90); RED CELL DISTRIBUTION WIDTH 14.5 % (11.5-14.5)
[2017-08-24 07:16] LABS: BLOOD UREA NITROGEN 14 mg/dl (9-20); GFR AFRICAN-AMERICAN > 60; GFR NON-AFRICAN AMERICAN > 60
[2017-08-24 07:33] LABS: SQUAMOUS EPITHIAL < 1 /hpf (0-5); URINE BACTERIA RARE (<OCC); URINE BILIRUBIN NEGATIVE (NEGATIVE); URINE BLOOD NEGATIVE (NEGATIVE); URINE CLARITY SLIGHTY-CLOUDY (Clear); URINE COLOR AMBER (YELLOW); URINE GLUCOSE (UA) 50 mg/dL (Normal); URINE LEUKOCYTE ESTERASE TRACE Leu/uL (Negative); URINE PROTEIN 100 mg/dL (NEGATIVE)
--- NOTE | 2017-08-24 08:44 | CP.PCM.PN ---
Subjective - Date & Time of Evaluation Date of Evaluation: 08/24/17 Time of Evaluation: 06:50 - Subjective Subjective: General Surgery Pt seen and examined. No acute events overnight. Febrile to 102.8 yesterday afternoon. No pain at this time. +BM/flatus. Tolerating CLD. Objective - Vital Signs/Intake and Output Vital Signs (last 24 hours): Temp Pulse Resp BP Pulse Ox 99.0 F 67 20 107/70 97 08/24/17 07:39 08/24/17 07:39 08/24/17 07:39 08/24/17 07:39 08/24/17 07:39 - Medications Medications: Current Medications Acetaminophen (Tylenol 325mg Tab) 650 mg PO Q6 PRN PRN Reason: Fever >100.4 F Last Admin: 08/23/17 15:23 Dose: 650 mg Acetaminophen (Tylenol 650 Mg Supp) 650 mg [place] ONCE SHANKAR Last Admin: 08/22/17 08:18 Dose: 650 mg Hydromorphone HCl (Dilaudid) 1 mg IVP Q6H PRN PRN Reason: Pain, severe (8-10) Last Admin: 08/23/17 08:18 Dose: 1 mg Hydromorphone HCl (Dilaudid) 0.5 mg IVP Q6 PRN PRN Reason: Pain, moderate (4-7) Last Admin: 08/23/17 02:56 Dose: 0.5 mg Lactated Ringer's (Lactated Ringer's) 1,000 mls @ 125 mls/hr IV .Q8H [facility] Last Admin: 08/24/17 08:24 Dose: Not Given Metronidazole (Flagyl 500mg/100ml Ns) 100 mls @ 100 mls/hr IVPB Q8 SHANKAR PRN Reason: Protocol Last Admin: 08/24/17 08:19 Dose: 100 mls/hr Meropenem 1 gm/ Sodium (Chloride) 100 mls @ 100 mls/hr IVPB Q8 SHANKAR PRN Reason: Protocol Last Admin: 08/24/17 08:20 Dose: 100 mls/hr Ibuprofen (Motrin Tab) 600 mg PO Q6 PRN PRN Reason: Headache Last Admin: 08/24/17 08:17 Dose: 600 mg Ondansetron HCl (Zofran Inj) 4 mg IVP Q6 PRN PRN Reason: Nausea/Vomiting - Labs Labs: 08/24/17 06:30 08/24/17 06:30 PT 15.9 Seconds (9.8-13.1) H 08/22/17 07:44 INR 1.4 (0.9-1.2) H 08/22/17 07:44 APTT 26.3 Seconds (25.6-37.1) 08/22/17 07:44 - Constitutional Appears: Non-toxic, No Acute Distress - Head Exam Head Exam: ATRAUMATIC, NORMOCEPHALIC - Eye Exam Eye Exam: EOMI. absent: Scleral icterus - Respiratory Exam Respiratory Exam: NORMAL BREATHING PATTERN. absent: Respiratory Distress - GI/Abdominal Exam GI & Abdominal Exam: Soft, Tenderness (mild in RLQ). absent: Distended, Firm, Guarding, Rigid, Rebound - Extremities Exam Extremities Exam: Normal Capillary Refill. absent: Calf Tenderness - Neurological Exam Neurological Exam: Alert, Awake, Oriented x3 - Skin Skin Exam: Dry, Warm Assessment and Plan - Assessment and Plan (Free Text) Assessment: 42M with perforated appendix Plan: Continue with IV Antibiotics Monitor for fevers, PRN tylenol Analgesia PRN Zofran PRN AM Labs Serial abd exams Justin PGY4
--- NOTE | 2017-08-24 08:49 | CP.PCM.PN ---
Subjective - Date & Time of Evaluation Date of Evaluation: 08/24/17 Time of Evaluation: 08:45 - Subjective Subjective: Had fever up to 102.8 yesterday low grade fever today abd very much better tolerating Liquid diet sl epigastric discomfort and nausea sl headache no CP no SOB Objective - Vital Signs/Intake and Output Vital Signs (last 24 hours): Temp Pulse Resp BP Pulse Ox 99.0 F 67 20 107/70 97 08/24/17 07:39 08/24/17 07:39 08/24/17 07:39 08/24/17 07:39 08/24/17 07:39 - Medications Medications: Current Medications Acetaminophen (Tylenol 325mg Tab) 650 mg PO Q6 PRN PRN Reason: Fever >100.4 F Last Admin: 08/23/17 15:23 Dose: 650 mg Acetaminophen (Tylenol 650 Mg Supp) 650 mg [place] ONCE [facility] Last Admin: 08/22/17 08:18 Dose: 650 mg Hydromorphone HCl (Dilaudid) 1 mg IVP Q6H PRN PRN Reason: Pain, severe (8-10) Last Admin: 08/23/17 08:18 Dose: 1 mg Hydromorphone HCl (Dilaudid) 0.5 mg IVP Q6 PRN PRN Reason: Pain, moderate (4-7) Last Admin: 08/23/17 02:56 Dose: 0.5 mg Lactated Ringer's (Lactated Ringer's) 1,000 mls @ 125 mls/hr IV .Q8H [facility] Last Admin: 08/24/17 08:24 Dose: Not Given Metronidazole (Flagyl 500mg/100ml Ns) 100 mls @ 100 mls/hr IVPB Q8 SHANKAR PRN Reason: Protocol Last Admin: 08/24/17 08:19 Dose: 100 mls/hr Meropenem 1 gm/ Sodium (Chloride) 100 mls @ 100 mls/hr IVPB Q8 SHANKAR PRN Reason: Protocol Last Admin: 08/24/17 08:20 Dose: 100 mls/hr Ibuprofen (Motrin Tab) 600 mg PO Q6 PRN PRN Reason: Headache Last Admin: 08/24/17 08:17 Dose: 600 mg Ondansetron HCl (Zofran Odt) 4 mg PO STAT STA Stop: 05/26/18 08:48 - Labs Labs: 08/24/17 06:30 08/24/17 06:30 PT 15.9 Seconds (9.8-13.1) H 08/22/17 07:44 INR 1.4 (0.9-1.2) H 08/22/17 07:44 APTT 26.3 Seconds (25.6-37.1) 08/22/17 07:44 - Constitutional Appears: Non-toxic, No Acute Distress - Head Exam Head Exam: ATRAUMATIC, NORMAL INSPECTION, NORMOCEPHALIC - Eye Exam Eye Exam: EOMI, Normal appearance, PERRL Pupil Exam: NORMAL ACCOMODATION - ENT Exam ENT Exam: Mucous Membranes Dry, Normal External Ear Exam - Neck Exam Neck Exam: Full ROM. absent: Meningismus - Respiratory Exam Respiratory Exam: NORMAL BREATHING PATTERN. absent: Respiratory Distress - Cardiovascular Exam Cardiovascular Exam: REGULAR RHYTHM, +S1, +S2 - GI/Abdominal Exam GI & Abdominal Exam: Soft, Normal Bowel Sounds. absent: Tenderness - Extremities Exam Extremities Exam: Full ROM, Normal Capillary Refill, Normal Inspection. absent : Calf Tenderness - Back Exam Back Exam: Full ROM, NORMAL INSPECTION. absent: CVA tenderness (L), CVA tenderness (R) - Neurological Exam Neurological Exam: Alert, Awake, CN II-XII Intact, Oriented x3 Neuro motor strength exam: Left Upper Extremity: 5, Right Upper Extremity: 5, Left Lower Extremity: 5, Right Lower Extremity: 5 - Psychiatric Exam Psychiatric exam: Normal Affect, Normal Mood - Skin Skin Exam: Dry, Normal Color, Warm Assessment and Plan (1) Acute perforated appendicitis Status: Acute - Assessment and Plan (Free Text) Assessment: 42 y/o gent , no significant PMH , came in because of fever and severe abdominal pain. WBC Ct =18K. CT of abdomen : Rupture Appendicitis. Patient was admitted to Med Surg. Started on IVF and IV antibiotics. Surgery was consulted. 1. Acute Perforated Appendicitis -cont IVF hydration - cont IV Meropenem and Flagyl - pt is stable , clinically improving on IV antibiotics - Surgery following pt - rec to cont IV abx , plan for surgery at a later date - ID consulted- DR Zaidi DVT Proph -Lovenox
[2017-08-24] MEDS ORDERED: Famotidine 40 MG/5 ML PO SCH (09:00)
[2017-08-24] MEDS: Famotidine 20mg/50ml 20 MG/50 ML BAG IVPB SCH ×2 (10:07→16:14)
[2017-08-24] MEDS: HYDROmorphone 0.5 mg/0.5 ml ISec IVP PRN ×2 (11:33→18:27)
[2017-08-24] MEDS: Enoxaparin 40 mg Syringe SC SCH (16:14)
[2017-08-24] MEDS ORDERED: Simethicone 80 mg Chewtab PO STA (21:50)
[2017-08-25] MEDS: metroNIDAZOLE 500mg/100ml NS 100 ML IVPB SCH ×3 (00:05→16:47)
[2017-08-25] MEDS: HYDROmorphone 0.5 mg/0.5 ml ISec IVP PRN ×3 (00:08→18:01)
[2017-08-25] MEDS: Lactated Ringer's 1,000 ML IV SCH ×2 (01:00→11:58)
[2017-08-25] MEDS: Meropenem 1 GM in Sodium Chloride 0.9% 100 ML IVPB SCH ×3 (01:01→16:46)
[2017-08-25 07:13] LABS: BASO % 0.2 % (0.0-2.0); EOS % 0.2 % (0.0-4.0); HEMOGLOBIN 11.7 g/dL (12.0-18.0); LYMPH # 1.2 K/uL (1.0-4.3); LYMPH % 10.6 % (20.0-40.0); MEAN CELL VOLUME 80.8 fl (80.0-94.0); MEAN CORPUSCULAR HEMOGLOBIN 26.8 pg (27.0-31.0); MEAN CORPUSCULAR HGB CONC 33.2 g/dL (33.0-37.0); MEAN PLATELET VOLUME 8.8 fl (7.2-11.7); MONO # 0.7 K/uL (0.0-0.8); MONO % 6.5 % (0.0-10.0); NEUT # 9.5 K/uL (1.8-7.0); NEUT % 82.5 % (50.0-75.0); NRBC % 0.1 % (0.0-0.0); RBC 4.36 Mil/uL (4.40-5.90); RED CELL DISTRIBUTION WIDTH 14.7 % (11.5-14.5); WHITE BLOOD COUNT 11.5 K/uL (4.8-10.8)
[2017-08-25 07:35] LABS: BLOOD UREA NITROGEN 10 mg/dl (9-20); CALCIUM 7.8 mg/dL (8.4-10.2); GFR AFRICAN-AMERICAN > 60; GFR NON-AFRICAN AMERICAN > 60
--- NOTE | 2017-08-25 08:08 | CP.PCM.PN ---
Subjective - Date & Time of Evaluation Date of Evaluation: 08/25/17 Time of Evaluation: 08:08 - Subjective Subjective: pt states he feels about the same, continues to have pain no N/V, small BM TMax 101 overnight, WBC improving. HD stable Objective - Vital Signs/Intake and Output Vital Signs (last 24 hours): Temp Pulse Resp BP Pulse Ox 98.8 F 99 H 19 133/82 95 08/25/17 00:44 08/25/17 00:37 08/25/17 00:37 08/25/17 00:37 08/25/17 00:37 Vitals Reviewed GEN: WDWN, alert, cooperative HEENT: NCAT, PERRL, EOMI HEART: RRR, +S1S2, NO MRG LUNG: CTAB, NO WRR ABD: soft, RLQ tenderness, ND, No HSM, No masses EXT: normal pedal pulses, normal capillary refill NEURO: awake, alert, no focal deficits SKIN: warm, dry PSYCH: normal mood, normal affect - Medications Medications: Current Medications Acetaminophen (Tylenol 325mg Tab) 650 mg PO Q6 PRN PRN Reason: Fever >100.4 F Last Admin: 08/24/17 23:44 Dose: 650 mg Acetaminophen (Tylenol 650 Mg Supp) 650 mg [place] ONCE SHANKAR Last Admin: 08/22/17 08:18 Dose: 650 mg Enoxaparin Sodium (Lovenox) 40 mg [place] DAILY SHANKAR PRN Reason: Protocol Last Admin: 08/24/17 16:14 Dose: 40 mg Hydromorphone HCl (Dilaudid) 0.5 mg IVP Q6 PRN PRN Reason: Pain, moderate (4-7) Last Admin: 08/25/17 00:08 Dose: 0.5 mg Lactated Ringer's (Lactated Ringer's) 1,000 mls @ 125 mls/hr IV .Q8H [facility] Last Admin: 08/25/17 01:00 Dose: 125 mls/hr Metronidazole (Flagyl 500mg/100ml Ns) 100 mls @ 100 mls/hr IVPB Q8 SHANKAR PRN Reason: Protocol Last Admin: 08/25/17 00:05 Dose: 100 mls/hr Meropenem 1 gm/ Sodium (Chloride) 100 mls @ 100 mls/hr IVPB Q8 SHANKAR PRN Reason: Protocol Last Admin: 08/25/17 01:01 Dose: 100 mls/hr Famotidine (Pepcid 20mg/50ml Premix) 20 mg in 50 mls @ 100 mls/hr IVPB BID SHANKAR Last Admin: 08/24/17 16:14 Dose: 100 mls/hr Ibuprofen (Motrin Tab) 600 mg PO Q6 PRN PRN Reason: Headache Last Admin: 08/24/17 08:17 Dose: 600 mg - Labs Labs: 08/25/17 05:30 08/25/17 05:30 PT 15.9 Seconds (9.8-13.1) H 08/22/17 07:44 INR 1.4 (0.9-1.2) H 08/22/17 07:44 APTT 26.3 Seconds (25.6-37.1) 08/22/17 07:44 Assessment and Plan - Assessment and Plan (Free Text) Plan: 42 y/o gent , no significant PMH , came in because of fever and severe abdominal pain. WBC Ct =18K. CT of abdomen : Rupture Appendicitis. Patient was admitted to Med Surg. Started on IVF and IV antibiotics. Surgery was consulted. 1. Acute Perforated Appendicitis - cont IVF hydration - cont IV Meropenem and Flagyl - Consult Dr. Zaidi ID appreciated and followed - Cont pain control - Surgery following pt - rec to cont IV abx , plan for surgery at a later date DVT Proph -Lovenox
[2017-08-25] MEDS ORDERED: Potassium Chloride 20 mEq ER Tab PO ONE (08:09)
[2017-08-25] MEDS: Enoxaparin 40 mg Syringe SC SCH (08:36)
--- NOTE | 2017-08-25 09:10 | CP.PCM.PN ---
Subjective - Date & Time of Evaluation Date of Evaluation: 08/25/17 Time of Evaluation: 09:09 - Subjective Subjective: Surgery Pt seen and examined. fever 101 overnight. Denies nausea, diarrhea. TOlerating CLD. + void. + OOB Objective - Vital Signs/Intake and Output Vital Signs (last 24 hours): Temp Pulse Resp BP Pulse Ox 99.1 F 98 H 20 123/75 95 08/25/17 08:09 08/25/17 08:09 08/25/17 08:09 08/25/17 08:09 08/25/17 08:09 - Medications Medications: Current Medications Acetaminophen (Tylenol 325mg Tab) 650 mg PO Q6 PRN PRN Reason: Fever >100.4 F Last Admin: 08/24/17 23:44 Dose: 650 mg Acetaminophen (Tylenol 650 Mg Supp) 650 mg [place] ONCE [facility] Last Admin: 08/22/17 08:18 Dose: 650 mg Enoxaparin Sodium (Lovenox) 40 mg [place] DAILY SHANKAR PRN Reason: Protocol Last Admin: 08/25/17 08:36 Dose: 40 mg Hydromorphone HCl (Dilaudid) 0.5 mg IVP Q6 PRN PRN Reason: Pain, moderate (4-7) Last Admin: 08/25/17 00:08 Dose: 0.5 mg Lactated Ringer's (Lactated Ringer's) 1,000 mls @ 125 mls/hr IV .Q8H [facility] Last Admin: 08/25/17 01:00 Dose: 125 mls/hr Metronidazole (Flagyl 500mg/100ml Ns) 100 mls @ 100 mls/hr IVPB Q8 SHANKAR PRN Reason: Protocol Last Admin: 08/25/17 00:05 Dose: 100 mls/hr Meropenem 1 gm/ Sodium (Chloride) 100 mls @ 100 mls/hr IVPB Q8 SHANKAR PRN Reason: Protocol Last Admin: 08/25/17 08:37 Dose: 100 mls/hr Famotidine (Pepcid 20mg/50ml Premix) 20 mg in 50 mls @ 100 mls/hr IVPB BID [facility]ANKAR Last Admin: 08/24/17 16:14 Dose: 100 mls/hr Ibuprofen (Motrin Tab) 600 mg PO Q6 PRN PRN Reason: Headache Last Admin: 08/24/17 08:17 Dose: 600 mg - Labs Labs: 08/25/17 05:30 08/25/17 05:30 PT 15.9 Seconds (9.8-13.1) H 08/22/17 07:44 INR 1.4 (0.9-1.2) H 08/22/17 07:44 APTT 26.3 Seconds (25.6-37.1) 08/22/17 07:44 - Constitutional Appears: No Acute Distress - Head Exam Head Exam: ATRAUMATIC, NORMAL INSPECTION, NORMOCEPHALIC - Eye Exam Eye Exam: EOMI, Normal appearance, PERRL Pupil Exam: NORMAL ACCOMODATION, PERRL - ENT Exam ENT Exam: Mucous Membranes Moist, Normal Exam - Neck Exam Neck Exam: Full ROM, Normal Inspection. absent: Lymphadenopathy - Respiratory Exam Respiratory Exam: Clear to Ausculation Bilateral, NORMAL BREATHING PATTERN - Cardiovascular Exam Cardiovascular Exam: REGULAR RHYTHM, +S1, +S2. absent: Murmur - GI/Abdominal Exam GI & Abdominal Exam: Soft, Tenderness, Normal Bowel Sounds. absent: Distended, Firm, Guarding, Rigid Additional comments: RLQ TTP - Exam Exam: NORMAL INSPECTION - Extremities Exam Extremities Exam: Full ROM, Normal Capillary Refill, Normal Inspection. absent : Joint Swelling, Pedal Edema - Back Exam Back Exam: NORMAL INSPECTION - Neurological Exam Neurological Exam: Alert, Awake, CN II-XII Intact, Normal Gait, Oriented x3 - Psychiatric Exam Psychiatric exam: Normal Affect, Normal Mood - Skin Skin Exam: Dry, Intact, Normal Color, Warm Assessment and Plan - Assessment and Plan (Free Text) Assessment: 42M with perforated appendix Plan: Continue with IV Antibiotics Monitor for fevers, PRN tylenol Analgesia PRN Zofran PRN AM Labs Serial abd exams Will JOEY Mejia
[2017-08-25] MEDS: Famotidine 20mg/50ml 20 MG/50 ML BAG IVPB SCH ×2 (09:45→17:00)
--- NOTE | 2017-08-25 14:06 | CP.PCM.PN ---
Subjective - Date & Time of Evaluation Date of Evaluation: 08/25/17 Time of Evaluation: 08:00 - Subjective Subjective: still has fever Objective - Vital Signs/Intake and Output Vital Signs (last 24 hours): Temp Pulse Resp BP Pulse Ox 99.1 F 98 H 20 123/75 95 08/25/17 08:09 08/25/17 08:09 08/25/17 08:09 08/25/17 08:09 08/25/17 08:09 - Medications Medications: Current Medications Acetaminophen (Tylenol 325mg Tab) 650 mg PO Q6 PRN PRN Reason: Fever >100.4 F Last Admin: 08/24/17 23:44 Dose: 650 mg Acetaminophen (Tylenol 650 Mg Supp) 650 mg [place] ONCE SHANKAR Last Admin: 08/22/17 08:18 Dose: 650 mg Enoxaparin Sodium (Lovenox) 40 mg SC DAILY SHANKAR PRN Reason: Protocol Last Admin: 08/25/17 08:36 Dose: 40 mg Hydromorphone HCl (Dilaudid) 0.5 mg IVP Q6 PRN PRN Reason: Pain, moderate (4-7) Last Admin: 08/25/17 11:13 Dose: 0.5 mg Lactated Ringer's (Lactated Ringer's) 1,000 mls @ 125 mls/hr IV .Q8H SHANKAR Last Admin: 08/25/17 11:58 Dose: 125 mls/hr Metronidazole (Flagyl 500mg/100ml Ns) 100 mls @ 100 mls/hr IVPB Q8 SHANKAR PRN Reason: Protocol Last Admin: 08/25/17 10:36 Dose: 100 mls/hr Meropenem 1 gm/ Sodium (Chloride) 100 mls @ 100 mls/hr IVPB Q8 SHANKAR PRN Reason: Protocol Last Admin: 08/25/17 08:37 Dose: 100 mls/hr Famotidine (Pepcid 20mg/50ml Premix) 20 mg in 50 mls @ 100 mls/hr IVPB BID SHANKAR Last Admin: 08/25/17 09:45 Dose: 100 mls/hr Ibuprofen (Motrin Tab) 600 mg PO Q6 PRN PRN Reason: Headache Last Admin: 08/25/17 10:44 Dose: 600 mg Iohexol (Omnipaque 240 (50 Ml)) 50 ml PO ONCE ONE Stop: 08/26/17 06:01 - Labs Labs: 08/25/17 05:30 08/25/17 05:30 PT 15.9 Seconds (9.8-13.1) H 08/22/17 07:44 INR 1.4 (0.9-1.2) H 08/22/17 07:44 APTT 26.3 Seconds (25.6-37.1) 08/22/17 07:44 - Constitutional Appears: Non-toxic, Chronically Ill - Head Exam Head Exam: NORMOCEPHALIC - Eye Exam Eye Exam: PERRL - ENT Exam ENT Exam: Mucous Membranes Dry - Neck Exam Neck Exam: absent: Lymphadenopathy - Respiratory Exam Respiratory Exam: Decreased Breath Sounds - Cardiovascular Exam Cardiovascular Exam: REGULAR RHYTHM - GI/Abdominal Exam GI & Abdominal Exam: Distended - Rectal Exam Rectal Exam: Deferred - Exam Exam: NORMAL INSPECTION Assessment and Plan (1) Acute perforated appendicitis Status: Acute - Assessment and Plan (Free Text) Assessment: 42 yo male with persistent fever and abd pain despite approptiate antibiotics for acute appendicitis consider repeat CT abd / pelvis to r/o drainable abscess
[2017-08-26] MEDS: HYDROmorphone 0.5 mg/0.5 ml ISec IVP PRN ×4 (00:32→20:00)
[2017-08-26] MEDS: Lactated Ringer's 1,000 ML IV SCH ×2 (00:35→23:16)
[2017-08-26] MEDS: metroNIDAZOLE 500mg/100ml NS 100 ML IVPB SCH ×3 (00:36→16:15)
[2017-08-26] MEDS: Meropenem 1 GM in Sodium Chloride 0.9% 100 ML IVPB SCH ×3 (01:35→16:15)
[2017-08-26] MEDS ORDERED: Iohexol 240 (50 ml) PO ONE (06:00)
[2017-08-26 06:28] LABS: HEMOGLOBIN 12.1 g/dL (12.0-18.0); MEAN CELL VOLUME 80.4 fl (80.0-94.0); MEAN CORPUSCULAR HGB CONC 33.6 g/dL (33.0-37.0); RBC 4.49 Mil/uL (4.40-5.90); RED CELL DISTRIBUTION WIDTH 14.6 % (11.5-14.5); WHITE BLOOD COUNT 12.2 K/uL (4.8-10.8)
[2017-08-26 06:42] LABS: BLOOD UREA NITROGEN 10 mg/dl (9-20); GFR AFRICAN-AMERICAN > 60; GFR NON-AFRICAN AMERICAN > 60
--- NOTE | 2017-08-26 07:35 | CP.PCM.PN ---
Subjective - Date & Time of Evaluation Date of Evaluation: 08/26/17 Time of Evaluation: 07:35 - Subjective Subjective: pt comfortable, however continues to appear +malaise rpt CT today HD stable NAD Objective - Vital Signs/Intake and Output Vital Signs (last 24 hours): Temp Pulse Resp BP Pulse Ox 99.1 F 97 H 19 123/85 96 08/26/17 00:00 08/26/17 00:00 08/26/17 00:00 08/26/17 00:00 08/26/17 00:00 GENERAL APPEARANCE: Well developed, well nourished, alert and cooperative, and appears to be in no acute distress. HEENT: normocephalic, atraumatic PERRL, EOMI. Vision is grossly intact NECK: Neck supple, non-tender without lymphadenopathy, masses or thyromegaly. CARDIAC: Normal S1 and S2. No S3, S4 or murmurs. Rhythm is regular. LUNGS: Clear to auscultation and percussion without rales, rhonchi, wheezing or diminished breath sounds. ABDOMEN: Positive bowel sounds. Soft, nondistended, TENDER RLQ No guarding or rebound. No masses. BACK: Examination of the spine reveals no spinal deformity, symmetry of spinal muscles, EXTREMITIES: No significant deformity or joint abnormality. No edema. NEUROLOGICAL: Strength and sensation symmetric and intact throughout. Reflexes 2 + throughout. SKIN: Skin normal color, texture and turgor with no lesions or eruptions. PSYCHIATRIC: The patient was oriented to person, place, and time. Normal affect. - Medications Medications: Current Medications Acetaminophen (Tylenol 325mg Tab) 650 mg PO Q6 PRN PRN Reason: Fever >100.4 F Last Admin: 08/24/17 23:44 Dose: 650 mg Acetaminophen (Tylenol 650 Mg Supp) 650 mg [place] ONCE SHANKAR Last Admin: 08/22/17 08:18 Dose: 650 mg Enoxaparin Sodium (Lovenox) 40 mg SC DAILY SHANKAR PRN Reason: Protocol Last Admin: 08/25/17 08:36 Dose: 40 mg Hydromorphone HCl (Dilaudid) 0.5 mg IVP Q6 PRN PRN Reason: Pain, moderate (4-7) Last Admin: 08/26/17 06:29 Dose: 0.5 mg Lactated Ringer's (Lactated Ringer's) 1,000 mls @ 125 mls/hr IV .Q8H SHANKAR Last Admin: 08/26/17 00:35 Dose: Not Given Metronidazole (Flagyl 500mg/100ml Ns) 100 mls @ 100 mls/hr IVPB Q8 SHANKAR PRN Reason: Protocol Last Admin: 08/26/17 00:36 Dose: 100 mls/hr Meropenem 1 gm/ Sodium (Chloride) 100 mls @ 100 mls/hr IVPB Q8 SHANKAR PRN Reason: Protocol Last Admin: 08/26/17 01:35 Dose: 100 mls/hr Famotidine (Pepcid 20mg/50ml Premix) 20 mg in 50 mls @ 100 mls/hr IVPB BID SHANKAR Last Admin: 08/25/17 17:00 Dose: 100 mls/hr Ibuprofen (Motrin Tab) 600 mg PO Q6 PRN PRN Reason: Headache Last Admin: 08/25/17 10:44 Dose: 600 mg - Labs Labs: 08/26/17 05:25 08/26/17 05:25 PT 15.9 Seconds (9.8-13.1) H 08/22/17 07:44 INR 1.4 (0.9-1.2) H 08/22/17 07:44 APTT 26.3 Seconds (25.6-37.1) 08/22/17 07:44 Assessment and Plan - Assessment and Plan (Free Text) Plan: 42 y/o gent , no significant PMH , came in because of fever and severe abdominal pain. WBC Ct =18K. CT of abdomen : Rupture Appendicitis. Patient was admitted to Med Surg. Started on IVF and IV antibiotics. Surgery was consulted. 1. Acute Perforated Appendicitis REPEAT CT SCAN TODAY +ABSCESS - discussed with IR - for drainage tomorrow - discussed with surgery - cont IVF hydration - cont IV Meropenem and Flagyl - Consult Dr. Zaidi ID appreciated and followed - Cont pain control - Surgery following pt - rec to cont IV abx , plan for surgery at a later date DVT Proph -Lovenox
[2017-08-26] MEDS ORDERED: Sodium Chloride 0.9% 50 ML IV ONE (08:20)
[2017-08-26] MEDS ORDERED: Iohexol 300 100 ML IJ ONE (08:20)
[2017-08-26] MEDS: Enoxaparin 40 mg Syringe SC SCH (09:40)
[2017-08-26] MEDS: Famotidine 20mg/50ml 20 MG/50 ML BAG IVPB SCH ×2 (09:42→16:16)
--- NOTE | 2017-08-26 10:20 | CT ---
PROCEDURE: CT Abdomen and Pelvis with contrast HISTORY: perforated appendix COMPARISON: 08/22/2017. TECHNIQUE: CT scan of the abdomen and pelvis was performed after administration of intravenous contrast. Oral contrast was administered. Coronal and sagittal reformatted images were obtained. Contrast dose: 95 cc Omnipaque 300 Radiation dose: Total exam DLP = 705.40 mGy-cm. This CT exam was performed using one or more of the following dose reduction techniques: Automated exposure control, adjustment of the mA and/or kV according to patient size, and/or use of iterative reconstruction technique. FINDINGS: LOWER THORAX: There is subsegmental atelectasis in the lower lobes. LIVER: Again seen is a fatty liver. No gross lesion or ductal dilatation. GALLBLADDER AND BILE DUCTS: No calcified gallstones. PANCREAS: Normal in size with homogeneous enhancement. No gross lesion or ductal dilatation. SPLEEN: Normal in size and appearance. ADRENALS: No discrete nodule. KIDNEYS AND URETERS: Normal in size with homogeneous enhancement. No hydronephrosis. No solid mass. VASCULATURE: No aortic aneurysm. BOWEL: Unremarkable. No obstruction. No gross mural thickening. APPENDIX: There is a 5.4 x 6.3 x 9.5 cm collection with internal air surrounding the inflamed appendix there is redemonstration of appendicolith within the appendix flow lumen. The appendiceal margins are not distinctly identified. There are significant inflammatory changes in the right lower quadrant. PERITONEUM: There is small amount of free fluid in the right pericolic gutter. No free air. LYMPH NODES: There is reactive enlargement of right lower quadrant mesenteric lymph nodes. BLADDER: Grossly normal in appearance. REPRODUCTIVE: Unremarkable. BONES: No acute fracture. OTHER FINDINGS: None. IMPRESSION: Findings are consistent with interval development of a periappendiceal abscess measuring 5.4 x 6.3 x 9.5 cm. No free intraperitoneal air. Important findings were discussed with Dr. Carline Terrazas on the floor on 08/26/2017 at 10:12 a.m.
--- NOTE | 2017-08-26 10:33 | CP.PCM.PN ---
Subjective - Date & Time of Evaluation Date of Evaluation: 08/26/17 Time of Evaluation: 07:15 - Subjective Subjective: Patient seen and examined with Dr. Mejia. No acute events over night. Afebrile. Tolerating liquid diet. Denies n/v. Objective - Vital Signs/Intake and Output Vital Signs (last 24 hours): Temp Pulse Resp BP Pulse Ox 98.9 F 82 20 111/70 97 08/26/17 08:14 08/26/17 08:14 08/26/17 08:14 08/26/17 08:14 08/26/17 08:14 - Medications Medications: Current Medications Acetaminophen (Tylenol 325mg Tab) 650 mg PO Q6 PRN PRN Reason: Fever >100.4 F Last Admin: 08/24/17 23:44 Dose: 650 mg Acetaminophen (Tylenol 650 Mg Supp) 650 mg [place] ONCE SHANKAR Last Admin: 08/22/17 08:18 Dose: 650 mg Enoxaparin Sodium (Lovenox) 40 mg SC DAILY SHANKAR PRN Reason: Protocol Last Admin: 08/26/17 09:40 Dose: 40 mg Hydromorphone HCl (Dilaudid) 0.5 mg IVP Q6 PRN PRN Reason: Pain, moderate (4-7) Last Admin: 08/26/17 06:29 Dose: 0.5 mg Lactated Ringer's (Lactated Ringer's) 1,000 mls @ 125 mls/hr IV .Q8H SHANKAR Last Admin: 08/26/17 00:35 Dose: Not Given Metronidazole (Flagyl 500mg/100ml Ns) 100 mls @ 100 mls/hr IVPB Q8 SHANKAR PRN Reason: Protocol Last Admin: 08/26/17 09:42 Dose: 100 mls/hr Meropenem 1 gm/ Sodium (Chloride) 100 mls @ 100 mls/hr IVPB Q8 SHANKAR PRN Reason: Protocol Last Admin: 08/26/17 09:41 Dose: 100 mls/hr Famotidine (Pepcid 20mg/50ml Premix) 20 mg in 50 mls @ 100 mls/hr IVPB BID SHANKAR Last Admin: 08/26/17 09:42 Dose: 100 mls/hr Ibuprofen (Motrin Tab) 600 mg PO Q6 PRN PRN Reason: Headache Last Admin: 08/25/17 10:44 Dose: 600 mg - Labs Labs: 08/26/17 05:25 08/26/17 05:25 PT 15.9 Seconds (9.8-13.1) H 08/22/17 07:44 INR 1.4 (0.9-1.2) H 08/22/17 07:44 APTT 26.3 Seconds (25.6-37.1) 08/22/17 07:44 - Constitutional Appears: No Acute Distress - Head Exam Head Exam: NORMOCEPHALIC - Eye Exam Eye Exam: EOMI, Normal appearance - ENT Exam ENT Exam: Mucous Membranes Moist - Respiratory Exam Respiratory Exam: NORMAL BREATHING PATTERN - Cardiovascular Exam Cardiovascular Exam: +S1, +S2 - GI/Abdominal Exam GI & Abdominal Exam: Soft, Tenderness. absent: Distended, Firm, Guarding, Rigid Additional comments: tenderness in RLQ to deep palpation - Extremities Exam Extremities Exam: absent: Calf Tenderness - Neurological Exam Neurological Exam: Alert, Awake, Oriented x3 - Psychiatric Exam Psychiatric exam: Normal Mood Assessment and Plan - Assessment and Plan (Free Text) Assessment: 42M with perforated appendix Plan: NPO past MN Continue with IV Antibiotics as per ID Monitor for fevers, PRN tylenol Analgesia PRN Zofran PRN CT abd/pelvis demonstrated a periappendiceal abscess measuring 5.4cm x6.3 cmx 9.5 cm Recommend IR consult for drainage of periappendiceal abscess D/w Dr. Roberto SCHAFER PGY 2
[2017-08-26] MEDS ORDERED: Potassium Chloride 20 mEq ER Tab PO ONE (14:00)
[2017-08-27] MEDS: metroNIDAZOLE 500mg/100ml NS 100 ML IVPB SCH ×3 (00:30→16:41)
[2017-08-27] MEDS: Lactated Ringer's 1,000 ML IV SCH ×3 (00:38→16:45)
[2017-08-27] MEDS: Meropenem 1 GM in Sodium Chloride 0.9% 100 ML IVPB SCH ×3 (01:30→16:44)
[2017-08-27] MEDS: HYDROmorphone 0.5 mg/0.5 ml ISec IVP PRN ×3 (01:56→14:20)
[2017-08-27 06:21] LABS: HEMOGLOBIN 12.5 g/dL (12.0-18.0); MEAN CELL VOLUME 79.7 fl (80.0-94.0); MEAN CORPUSCULAR HEMOGLOBIN 26.9 pg (27.0-31.0); MEAN CORPUSCULAR HGB CONC 33.7 g/dL (33.0-37.0); RBC 4.67 Mil/uL (4.40-5.90); RED CELL DISTRIBUTION WIDTH 14.8 % (11.5-14.5); WHITE BLOOD COUNT 15.7 K/uL (4.8-10.8)
[2017-08-27 06:41] LABS: BLOOD UREA NITROGEN 10 mg/dl (9-20); CALCIUM 8.3 mg/dL (8.4-10.2); GFR AFRICAN-AMERICAN > 60; GFR NON-AFRICAN AMERICAN > 60
--- NOTE | 2017-08-27 08:43 | CP.PCM.PN ---
<Dominick Parikh - Last Filed: 08/27/17 08:41> Subjective - Date & Time of Evaluation Date of Evaluation: 08/27/17 Time of Evaluation: 08:41 - Subjective Subjective: 42M seen at bedside for perforated appendix. Patient is AAO x 3 and NAD, resting comfortably. Denies any pain, acute overnight events or complaints. Denies any recent N/V/F/C/CP/SOB/D. Objective - Vital Signs/Intake and Output Vital Signs (last 24 hours): Temp Pulse Resp BP Pulse Ox 98.4 F 96 H 19 121/78 96 08/27/17 08:02 08/27/17 08:02 08/27/17 08:02 08/27/17 08:02 08/27/17 08:02 - Medications Medications: Current Medications Acetaminophen (Tylenol 325mg Tab) 650 mg PO Q6 PRN PRN Reason: Fever >100.4 F Last Admin: 08/24/17 23:44 Dose: 650 mg Acetaminophen (Tylenol 650 Mg Supp) 650 mg [place] ONCE COUNTS INCLUDE 234 BEDS AT THE [facility] Last Admin: 08/22/17 08:18 Dose: 650 mg Enoxaparin Sodium (Lovenox) 40 mg SC DAILY SHANKAR PRN Reason: Protocol Last Admin: 08/26/17 09:40 Dose: 40 mg Lactated Ringer's (Lactated Ringer's) 1,000 mls @ 125 mls/hr IV .Q8H COUNTS INCLUDE 234 BEDS AT THE [facility] Last Admin: 08/27/17 00:38 Dose: Not Given Metronidazole (Flagyl 500mg/100ml Ns) 100 mls @ 100 mls/hr IVPB Q8 SHANKAR PRN Reason: Protocol Last Admin: 08/27/17 00:30 Dose: 100 mls/hr Meropenem 1 gm/ Sodium (Chloride) 100 mls @ 100 mls/hr IVPB Q8 SHANKAR PRN Reason: Protocol Last Admin: 08/27/17 01:30 Dose: 100 mls/hr Famotidine (Pepcid 20mg/50ml Premix) 20 mg in 50 mls @ 100 mls/hr IVPB BID SHANKAR Last Admin: 08/26/17 16:16 Dose: 100 mls/hr Ibuprofen (Motrin Tab) 600 mg PO Q6 PRN PRN Reason: Headache Last Admin: 08/25/17 10:44 Dose: 600 mg Metoclopramide HCl (Reglan) 10 mg IVP Q6 PRN PRN Reason: Nausea/Vomiting Last Admin: 08/26/17 20:22 Dose: 10 mg - Labs Labs: 08/27/17 05:35 08/27/17 05:35 PT 15.9 Seconds (9.8-13.1) H 08/22/17 07:44 INR 1.4 (0.9-1.2) H 08/22/17 07:44 APTT 26.3 Seconds (25.6-37.1) 08/22/17 07:44 - Constitutional Appears: Well, Non-toxic, No Acute Distress - Head Exam Head Exam: ATRAUMATIC, NORMOCEPHALIC - Respiratory Exam Respiratory Exam: NORMAL BREATHING PATTERN. absent: Respiratory Distress - GI/Abdominal Exam GI & Abdominal Exam: Soft, Tenderness. absent: Distended, Firm, Guarding, Rigid Additional comments: tenderness in RLQ to deep palpation - Neurological Exam Neurological Exam: Alert, Awake, Oriented x3 - Psychiatric Exam Psychiatric exam: Normal Affect, Normal Mood Assessment and Plan - Assessment and Plan (Free Text) Assessment: 42M seen at bedside for perforated appendix Plan: Afebrile WBC 15.[address]: Findings consistent with periappendiceal abscess. No free intraperitoneal air NPO Pt for IR eval for drainage of abscess today Will f/u Plan discussed with Dr. Chan <Cristino Terrazas - Last Filed: 08/27/17 10:14> Objective - Vital Signs/Intake and Output Vital Signs (last 24 hours): Temp Pulse Resp BP Pulse Ox 98.4 F 96 H 19 121/78 96 08/27/17 08:02 08/27/17 08:02 08/27/17 08:02 08/27/17 08:02 08/27/17 08:02 - Medications Medications: Current Medications Acetaminophen (Tylenol 325mg Tab) 650 mg PO Q6 PRN PRN Reason: Fever >100.4 F Last Admin: 08/24/17 23:44 Dose: 650 mg Acetaminophen (Tylenol 650 Mg Supp) 650 mg [place] ONCE SHANKAR Last Admin: 08/22/17 08:18 Dose: 650 mg Enoxaparin Sodium (Lovenox) 40 mg SC DAILY SHANKAR PRN Reason: Protocol Last Admin: 08/26/17 09:40 Dose: 40 mg Lactated Ringer's (Lactated Ringer's) 1,000 mls @ 125 mls/hr IV .Q8H SHANKAR Last Admin: 08/27/17 09:12 Dose: Not Given Metronidazole (Flagyl 500mg/100ml Ns) 100 mls @ 100 mls/hr IVPB Q8 SHANKAR PRN Reason: Protocol Last Admin: 08/27/17 09:12 Dose: 100 mls/hr Meropenem 1 gm/ Sodium (Chloride) 100 mls @ 100 mls/hr IVPB Q8 SHANKAR PRN Reason: Protocol Last Admin: 08/27/17 09:10 Dose: 100 mls/hr Famotidine (Pepcid 20mg/50ml Premix) 20 mg in 50 mls @ 100 mls/hr IVPB BID SHANKAR Last Admin: 08/27/17 09:08 Dose: 100 mls/hr Ibuprofen (Motrin Tab) 600 mg PO Q6 PRN PRN Reason: Headache Last Admin: 08/25/17 10:44 Dose: 600 mg Metoclopramide HCl (Reglan) 10 mg IVP Q6 PRN PRN Reason: Nausea/Vomiting Last Admin: 08/26/17 20:22 Dose: 10 mg - Labs Labs: 08/27/17 05:35 08/27/17 05:35 PT 15.9 Seconds (9.8-13.1) H 08/22/17 07:44 INR 1.4 (0.9-1.2) H 08/22/17 07:44 APTT 26.3 Seconds (25.6-37.1) 08/22/17 07:44 Assessment and Plan - Assessment and Plan (Free Text) Plan: f/u abscess drainage today. Advance diet after Drainage. JOEY brewer
[2017-08-27] MEDS: Famotidine 20mg/50ml 20 MG/50 ML BAG IVPB SCH ×2 (09:08→16:40)
--- NOTE | 2017-08-27 10:05 | CP.PCM.PN ---
Subjective - Date & Time of Evaluation Date of Evaluation: 08/27/17 Time of Evaluation: 10:00 - Subjective Subjective: afeb ct + abscess will need drainage Objective - Vital Signs/Intake and Output Vital Signs (last 24 hours): Temp Pulse Resp BP Pulse Ox 98.4 F 96 H 19 121/78 96 08/27/17 08:02 08/27/17 08:02 08/27/17 08:02 08/27/17 08:02 08/27/17 08:02 - Medications Medications: Current Medications Acetaminophen (Tylenol 325mg Tab) 650 mg PO Q6 PRN PRN Reason: Fever >100.4 F Last Admin: 08/24/17 23:44 Dose: 650 mg Acetaminophen (Tylenol 650 Mg Supp) 650 mg IN ONCE [facility] Last Admin: 08/22/17 08:18 Dose: 650 mg Enoxaparin Sodium (Lovenox) 40 mg SC DAILY SHANKAR PRN Reason: Protocol Last Admin: 08/26/17 09:40 Dose: 40 mg Lactated Ringer's (Lactated Ringer's) 1,000 mls @ 125 mls/hr IV .Q8H [facility] Last Admin: 08/27/17 09:12 Dose: Not Given Metronidazole (Flagyl 500mg/100ml Ns) 100 mls @ 100 mls/hr IVPB Q8 SHANKAR PRN Reason: Protocol Last Admin: 08/27/17 09:12 Dose: 100 mls/hr Meropenem 1 gm/ Sodium (Chloride) 100 mls @ 100 mls/hr IVPB Q8 SHANKAR PRN Reason: Protocol Last Admin: 08/27/17 09:10 Dose: 100 mls/hr Famotidine (Pepcid 20mg/50ml Premix) 20 mg in 50 mls @ 100 mls/hr IVPB BID SHANKAR Last Admin: 08/27/17 09:08 Dose: 100 mls/hr Ibuprofen (Motrin Tab) 600 mg PO Q6 PRN PRN Reason: Headache Last Admin: 08/25/17 10:44 Dose: 600 mg Metoclopramide HCl (Reglan) 10 mg IVP Q6 PRN PRN Reason: Nausea/Vomiting Last Admin: 08/26/17 20:22 Dose: 10 mg - Labs Labs: 08/27/17 05:35 08/27/17 05:35 PT 15.9 Seconds (9.8-13.1) H 08/22/17 07:44 INR 1.4 (0.9-1.2) H 08/22/17 07:44 APTT 26.3 Seconds (25.6-37.1) 08/22/17 07:44 - Constitutional Appears: Chronically Ill - Head Exam Head Exam: NORMOCEPHALIC - Eye Exam Eye Exam: PERRL - ENT Exam ENT Exam: Mucous Membranes Dry - Neck Exam Neck Exam: absent: Lymphadenopathy - Respiratory Exam Respiratory Exam: Decreased Breath Sounds - Cardiovascular Exam Cardiovascular Exam: REGULAR RHYTHM - GI/Abdominal Exam GI & Abdominal Exam: Distended - Rectal Exam Rectal Exam: Deferred - Exam Exam: NORMAL INSPECTION Assessment and Plan (1) Acute perforated appendicitis Status: Acute - Assessment and Plan (Free Text) Assessment: needs drainage perf appendix
--- NOTE | 2017-08-27 10:21 | CP.PCM.PN ---
Subjective - Date & Time of Evaluation Date of Evaluation: 08/27/17 Time of Evaluation: 10:00 - Subjective Subjective: Patient seen and examined bedside. Feeling better . Pain is controlled. Passing flatus. Hemodynamically stable , afebrile last 24 hours WBC 15.7 No acute issues overnight. Objective - Vital Signs/Intake and Output Vital Signs (last 24 hours): Temp Pulse Resp BP Pulse Ox 98.4 F 96 H 19 121/78 96 08/27/17 08:02 08/27/17 08:02 08/27/17 08:02 08/27/17 08:02 08/27/17 08:02 - Medications Medications: Current Medications Acetaminophen (Tylenol 325mg Tab) 650 mg PO Q6 PRN PRN Reason: Fever >100.4 F Last Admin: 08/24/17 23:44 Dose: 650 mg Acetaminophen (Tylenol 650 Mg Supp) 650 mg [place] ONCE SHANKAR Last Admin: 08/22/17 08:18 Dose: 650 mg Enoxaparin Sodium (Lovenox) 40 mg SC DAILY SHANKAR PRN Reason: Protocol Last Admin: 08/26/17 09:40 Dose: 40 mg Lactated Ringer's (Lactated Ringer's) 1,000 mls @ 125 mls/hr IV .Q8H SHANKAR Last Admin: 08/27/17 09:12 Dose: Not Given Metronidazole (Flagyl 500mg/100ml Ns) 100 mls @ 100 mls/hr IVPB Q8 SHANKAR PRN Reason: Protocol Last Admin: 08/27/17 09:12 Dose: 100 mls/hr Meropenem 1 gm/ Sodium (Chloride) 100 mls @ 100 mls/hr IVPB Q8 SHANKAR PRN Reason: Protocol Last Admin: 08/27/17 09:10 Dose: 100 mls/hr Famotidine (Pepcid 20mg/50ml Premix) 20 mg in 50 mls @ 100 mls/hr IVPB BID SHANKAR Last Admin: 08/27/17 09:08 Dose: 100 mls/hr Ibuprofen (Motrin Tab) 600 mg PO Q6 PRN PRN Reason: Headache Last Admin: 08/25/17 10:44 Dose: 600 mg Metoclopramide HCl (Reglan) 10 mg IVP Q6 PRN PRN Reason: Nausea/Vomiting Last Admin: 08/26/17 20:22 Dose: 10 mg - Labs Labs: 08/27/17 05:35 08/27/17 05:35 PT 15.9 Seconds (9.8-13.1) H 08/22/17 07:44 INR 1.4 (0.9-1.2) H 08/22/17 07:44 APTT 26.3 Seconds (25.6-37.1) 08/22/17 07:44 - Constitutional Appears: Non-toxic, No Acute Distress - Head Exam Head Exam: ATRAUMATIC, NORMAL INSPECTION, NORMOCEPHALIC - Eye Exam Eye Exam: EOMI, Normal appearance, PERRL Pupil Exam: NORMAL ACCOMODATION - ENT Exam ENT Exam: Mucous Membranes Moist, Normal Exam - Neck Exam Neck Exam: Full ROM, Normal Inspection - Respiratory Exam Respiratory Exam: Clear to Ausculation Bilateral, NORMAL BREATHING PATTERN. absent: Rales, Rhonchi, Wheezes - Cardiovascular Exam Cardiovascular Exam: REGULAR RHYTHM, RRR, +S1, +S2. absent: JVD - GI/Abdominal Exam GI & Abdominal Exam: Soft, Normal Bowel Sounds. absent: Distended, Guarding, Tenderness, Rebound - Rectal Exam Rectal Exam: Deferred - Extremities Exam Extremities Exam: Full ROM, Normal Capillary Refill, Normal Inspection. absent : Calf Tenderness, Pedal Edema - Back Exam Back Exam: NORMAL INSPECTION - Neurological Exam Neurological Exam: Alert, Awake, CN II-XII Intact, Oriented x3 - Psychiatric Exam Psychiatric exam: Normal Affect - Skin Skin Exam: Dry, Intact, Normal Color, Warm Assessment and Plan - Assessment and Plan (Free Text) Assessment: 42 y/o M with no significant PMH , came in because of fever and severe abdominal pain. CT of abdomen showed Rupture Appendicitis. Patient was admitted to Med Surg for acute perforated appendicitis and started on IV antibiotics. Surgery and ID were consulted 1. Acute Perforated Appendicitis CT abdomen showed : periappendiceal abscess measuring 5.4 x 6.3 x 9.5 cm. underwent IR drainage today with pigtail placement Blood and urine cx with no growth . Follow up cultures from abscess Continue Flagyl and meropenem IV pain management Surgery and ID following
[2017-08-27] MEDS ORDERED: Oxycodone/Acetaminophen 5/325 mg Tab ONE (12:24)
[2017-08-27] MEDS ORDERED: Propofol 10 mg/ml Inj (20 ML) ONE (13:29)
[2017-08-27] MEDS ORDERED: Midazolam 2 MG/2 ML VIAL ONE (13:30)
[2017-08-27] MEDS ORDERED: Lidocaine 1% Inj (20ml) ONE (13:39)
[2017-08-27] MEDS ORDERED: Sodium Chloride 0.9% 1,000 ML IV ONE (14:05)
[2017-08-27] MEDS ORDERED: HYDROmorphone 0.5 mg/0.5 ml ISec ONE (14:11)
--- NOTE | 2017-08-27 14:46 | PCM.SURG1 ---
Surgeon's Initial Post Op Note - Surgeon's Notes Surgeon: Taqueria Camejo MD Investment Executive: None Pre-Operative Diagnosis: ruptured appendicitis Operative Findings: rlq periappendiceal abscess. 8 persian pigtail drain placed in rlq periappendiceal abscess Post-Operative Diagnosis: same Operation Performed: CT guided abscess drainage Specimen/Specimens Removed: 80 cc thick brownish purulent fluid removed. sample submitted. Estimated Blood Loss: EBL {In ML}: 3 Date of Surgery/Procedure: 08/27/17 Time of Surgery/Procedure: 14:00
[2017-08-27] MEDS: Sodium Chloride 0.9% 1,000 ML IV SCH (16:43)
[2017-08-27] MEDS: Oxycodone/Acetaminophen 5/325 mg Tab PO PRN (18:25)
[2017-08-28] MEDS: Lactated Ringer's 1,000 ML IV SCH ×3 (00:12→17:12)
[2017-08-28] MEDS: Sodium Chloride 0.9% 1,000 ML IV SCH ×3 (00:15→17:05)
[2017-08-28] MEDS: Meropenem 1 GM in Sodium Chloride 0.9% 100 ML IVPB SCH ×3 (01:14→17:03)
[2017-08-28] MEDS: Oxycodone/Acetaminophen 5/325 mg Tab PO PRN (01:15)
[2017-08-28] MEDS: metroNIDAZOLE 500mg/100ml NS 100 ML IVPB SCH ×3 (01:15→17:01)
[2017-08-28 06:32] LABS: BASO # 0.1 K/uL (0.0-0.2); BASO % 0.4 % (0.0-2.0); EOS % 0.4 % (0.0-4.0); HEMOGLOBIN 12.4 g/dL (12.0-18.0); LYMPH # 2.5 K/uL (1.0-4.3); LYMPH % 19.3 % (20.0-40.0); MEAN CELL VOLUME 80.9 fl (80.0-94.0); MEAN CORPUSCULAR HEMOGLOBIN 26.9 pg (27.0-31.0); MEAN CORPUSCULAR HGB CONC 33.3 g/dL (33.0-37.0); MEAN PLATELET VOLUME 7.9 fl (7.2-11.7); MONO % 7.6 % (0.0-10.0); NEUT # 9.5 K/uL (1.8-7.0); NEUT % 72.3 % (50.0-75.0); RBC 4.6 Mil/uL (4.40-5.90); RED CELL DISTRIBUTION WIDTH 14.7 % (11.5-14.5); WHITE BLOOD COUNT 13.1 K/uL (4.8-10.8)
[2017-08-28 06:54] LABS: ALB/GLOB RATIO 0.9 (1.0-2.1); ALBUMIN 3.1 g/dL (3.5-5.0); ALT/SGPT 37 U/L (21-72); AST/SGOT 29 U/L (17-59); BLOOD UREA NITROGEN 15 mg/dl (9-20); CALCIUM 8.6 mg/dL (8.4-10.2); GFR AFRICAN-AMERICAN > 60; GFR NON-AFRICAN AMERICAN > 60
--- NOTE | 2017-08-28 08:41 | CP.PCM.PN ---
Subjective - Date & Time of Evaluation Date of Evaluation: 08/28/17 Time of Evaluation: 08:41 - Subjective Subjective: pt is s/p ir drainage no pain, afebrile hd stable no acute distress Objective - Vital Signs/Intake and Output Vital Signs (last 24 hours): Temp Pulse Resp BP Pulse Ox 98.2 F 92 H 19 123/81 96 08/28/17 07:54 08/28/17 07:54 08/28/17 07:54 08/28/17 07:54 08/28/17 07:54 Intake and Output: 08/28/17 08/28/17 06:59 18:59 Output Total 10 Balance -10 - Medications Medications: Current Medications Acetaminophen (Tylenol 325mg Tab) 650 mg PO Q6 PRN PRN Reason: Fever >100.4 F Last Admin: 08/24/17 23:44 Dose: 650 mg Acetaminophen (Tylenol 650 Mg Supp) 650 mg NM ONCE [facility] Last Admin: 08/22/17 08:18 Dose: 650 mg Enoxaparin Sodium (Lovenox) 40 mg SC DAILY [facility] PRN Reason: Protocol Last Admin: 08/26/17 09:40 Dose: 40 mg Lactated Ringer's (Lactated Ringer's) 1,000 mls @ 125 mls/hr IV .Q8H [facility] Last Admin: 08/28/17 00:12 Dose: Not Given Metronidazole (Flagyl 500mg/100ml Ns) 100 mls @ 100 mls/hr IVPB Q8 [facility] PRN Reason: Protocol Last Admin: 08/28/17 01:15 Dose: 100 mls/hr Meropenem 1 gm/ Sodium (Chloride) 100 mls @ 100 mls/hr IVPB Q8 [facility] PRN Reason: Protocol Last Admin: 08/28/17 01:14 Dose: 100 mls/hr Famotidine (Pepcid 20mg/50ml Premix) 20 mg in 50 mls @ 100 mls/hr IVPB BID [facility] Last Admin: 08/27/17 16:40 Dose: 100 mls/hr Sodium Chloride (Sodium Chloride 0.9%) 1,000 mls @ 100 mls/hr IV .Q10H [facility] Last Admin: 08/28/17 00:15 Dose: Not Given Ibuprofen (Motrin Tab) 600 mg PO Q6 PRN PRN Reason: Headache Last Admin: 08/25/17 10:44 Dose: 600 mg Ketorolac Tromethamine (Toradol) 30 mg IVP Q6 PRN PRN Reason: Pain, severe (8-10) Last Admin: 08/28/17 02:53 Dose: 30 mg Metoclopramide HCl (Reglan) 10 mg IVP Q6 PRN PRN Reason: Nausea/Vomiting Last Admin: 08/26/17 20:22 Dose: 10 mg Oxycodone/Acetaminophen (Percocet 5/325 Mg Tab) 1 tab PO Q4 PRN PRN Reason: Pain, severe (8-10) Stop: 08/30/17 12:19 Last Admin: 08/27/17 18:25 Dose: 1 tab - Labs Labs: 08/28/17 05:35 08/28/17 05:35 PT 15.9 Seconds (9.8-13.1) H 08/22/17 07:44 INR 1.4 (0.9-1.2) H 08/22/17 07:44 APTT 26.3 Seconds (25.6-37.1) 08/22/17 07:44 - Constitutional Appears: Non-toxic, No Acute Distress - Head Exam Head Exam: ATRAUMATIC, NORMOCEPHALIC - Eye Exam Eye Exam: EOMI, Normal appearance - ENT Exam ENT Exam: Mucous Membranes Moist, Normal Oropharynx - Respiratory Exam Respiratory Exam: Clear to Ausculation Bilateral, NORMAL BREATHING PATTERN - Cardiovascular Exam Cardiovascular Exam: RRR, +S1, +S2 - GI/Abdominal Exam GI & Abdominal Exam: Soft, Normal Bowel Sounds Additional comments: pigtail in place - Extremities Exam Extremities Exam: Normal Capillary Refill, Normal Inspection - Back Exam Back Exam: absent: CVA tenderness (L), CVA tenderness (R) - Neurological Exam Neurological Exam: Alert, Awake - Psychiatric Exam Psychiatric exam: Normal Affect, Normal Mood - Skin Skin Exam: Dry, Warm Assessment and Plan - Assessment and Plan (Free Text) Plan: 42 y/o M with no significant PMH , came in because of fever and severe abdominal pain. CT of abdomen showed Rupture Appendicitis. Patient was admitted to Med Surg for acute perforated appendicitis and started on IV antibiotics. Surgery and ID were consulted 1. Acute Perforated Appendicitis CT abdomen showed : periappendiceal abscess measuring 5.4 x 6.3 x 9.5 cm. underwent IR drainage today with pigtail placement Blood and urine cx with no growth Awaiting abscess cultures Discussed with ID - cont flagyl and merrem, may consider discharge with PO Augmentin or Levaquin/Flagyl for 7 days. Continue Flagyl and meropenem IV
[2017-08-28] MEDS: Famotidine 20mg/50ml 20 MG/50 ML BAG IVPB SCH ×2 (08:58→17:03)
--- NOTE | 2017-08-28 11:13 | CT ---
PROCEDURE: CT-GUIDED ABSCESS DRAINAGE CLINICAL HISTORY: 42-year-old male with perforated appendicitis and development of periappendiceal abscess is referred to Interventional Radiology for percutaneous abscess drainage. COMPARISON: CT scan of the abdomen and pelvis dated 08/26/2017 PROCEDURE: 1. Focused CT of the pelvis. 2. CT-guided abscess drainage. PRE-PROCEDURE FINDINGS: 1. Periappendiceal abscess with intra abscess appendicoliths. POST-PROCEDURE FINDINGS: 1. No evidence of post-procedural complication. INTERVENTIONAL RADIOLOGIST: Taqueria Camejo M.D. (the attending was present for the entire procedure) ANESTHESIA: Provided by the attending anesthesiologist. Sedation was supervised by the anesthesiology attending with the presence of independent radiology nursing monitoring. Physiological data monitoring was performed throughout the entire procedure. The patient's blood pressure, EKG and pulse oximetry were recorded. The patient tolerated the procedure and sedation without untoward reactions. The intra-procedural sedation time was 15 minutes. MEDICATIONS: Lidocaine 1% for local subcutaneous analgesia. See anesthesia record for intravenous sedation medication. COMPLICATIONS: None. PROCEDURE DESCRIPTION AND FINDINGS: The risks, benefits, alternatives and possible complications of the procedure were fully discussed; all questions were answered and informed consent was obtained. The patient was brought into the interventional suite and a pre-procedure 'time-out' was performed. The patient was placed on the CT table in the supine position. The fluid collection was localized under CT-guidance and a murphy was made on the overlying skin. The right lower quadrant was prepped and draped in the usual sterile fashion. Maximum sterile barrier precautions were maintained throughout the entire procedure. Preliminary focused CT images of the right lower quadrant again demonstrate periappendiceal abscess with intra abscess appendicoliths. Following subcutaneous infiltration of lidocaine 1% for local analgesia, under CT-guidance, an 18-gauge trocar needle was advanced into the right lower quadrant abscess. An 0.035 guidewire was looped within the collection and optimal position was confirmed with CT imaging. After serial dilatation, an 8 Marshallese all purpose drainage pigtail catheter was advanced over the guidewire into the collection. Approximately 80 mL of thick, brownish fluid was aspirated and a sample was sent to microbiology for culture and sensitivity. Post-procedure imaging demonstrated decompression of the fluid collection post pigtail catheter placement without evidence of complications. The catheter was secured to the skin utilizing a sterile adhesive bandage and left to external gravity bag drainage. The patient tolerated the procedure well without immediate post-procedure complications and was transferred back to the floor in stable condition. IMPRESSION: Successful CT-guided drainage of periappendiceal abscess with placement of 8 Marshallese all purpose drainage pigtail catheter within the collection.
--- NOTE | 2017-08-28 11:38 | CP.PCM.PN ---
<MkCristino - Last Filed: 08/28/17 11:36> Subjective - Date & Time of Evaluation Date of Evaluation: 08/28/17 Time of Evaluation: 11:36 - Subjective Subjective: Surgery Pt seen and examined. Got drain yesterday. Tolerated it well. Denies fever. 10cc output. Pain controlled. Denies diarrhea, CP, SOB, nausea. TOlerating diet Objective - Vital Signs/Intake and Output Vital Signs (last 24 hours): Temp Pulse Resp BP Pulse Ox 98.2 F 92 H 19 123/81 96 08/28/17 07:54 08/28/17 07:54 08/28/17 07:54 08/28/17 07:54 08/28/17 07:54 Intake and Output: 08/28/17 08/28/17 06:59 18:59 Output Total 10 Balance -10 - Medications Medications: Current Medications Acetaminophen (Tylenol 325mg Tab) 650 mg PO Q6 PRN PRN Reason: Fever >100.4 F Last Admin: 08/24/17 23:44 Dose: 650 mg Acetaminophen (Tylenol 650 Mg Supp) 650 mg GA ONCE [facility] Last Admin: 08/22/17 08:18 Dose: 650 mg Enoxaparin Sodium (Lovenox) 40 mg SC DAILY [facility] PRN Reason: Protocol Last Admin: 08/26/17 09:40 Dose: 40 mg Lactated Ringer's (Lactated Ringer's) 1,000 mls @ 125 mls/hr IV .Q8H [facility] Last Admin: 08/28/17 10:00 Dose: Not Given Metronidazole (Flagyl 500mg/100ml Ns) 100 mls @ 100 mls/hr IVPB Q8 [facility] PRN Reason: Protocol Last Admin: 08/28/17 08:56 Dose: 100 mls/hr Meropenem 1 gm/ Sodium (Chloride) 100 mls @ 100 mls/hr IVPB Q8 [facility] PRN Reason: Protocol Last Admin: 08/28/17 08:57 Dose: 100 mls/hr Famotidine (Pepcid 20mg/50ml Premix) 20 mg in 50 mls @ 100 mls/hr IVPB BID [facility] Last Admin: 08/28/17 08:58 Dose: 100 mls/hr Sodium Chloride (Sodium Chloride 0.9%) 1,000 mls @ 100 mls/hr IV .Q10H [facility] Last Admin: 08/28/17 00:15 Dose: Not Given Ibuprofen (Motrin Tab) 600 mg PO Q6 PRN PRN Reason: Headache Last Admin: 08/25/17 10:44 Dose: 600 mg Ketorolac Tromethamine (Toradol) 30 mg IVP Q6 PRN PRN Reason: Pain, severe (8-10) Last Admin: 08/28/17 10:01 Dose: 30 mg Metoclopramide HCl (Reglan) 10 mg IVP Q6 PRN PRN Reason: Nausea/Vomiting Last Admin: 08/26/17 20:22 Dose: 10 mg Oxycodone/Acetaminophen (Percocet 5/325 Mg Tab) 1 tab PO Q4 PRN PRN Reason: Pain, severe (8-10) Stop: 08/30/17 12:19 Last Admin: 08/27/17 18:25 Dose: 1 tab - Labs Labs: 08/28/17 05:35 08/28/17 05:35 PT 15.9 Seconds (9.8-13.1) H 08/22/17 07:44 INR 1.4 (0.9-1.2) H 08/22/17 07:44 APTT 26.3 Seconds (25.6-37.1) 08/22/17 07:44 - Constitutional Appears: No Acute Distress - Head Exam Head Exam: ATRAUMATIC, NORMAL INSPECTION, NORMOCEPHALIC - Eye Exam Eye Exam: EOMI, Normal appearance, PERRL Pupil Exam: NORMAL ACCOMODATION, PERRL - ENT Exam ENT Exam: Mucous Membranes Moist, Normal Exam - Neck Exam Neck Exam: Full ROM, Normal Inspection. absent: Lymphadenopathy - Respiratory Exam Respiratory Exam: Clear to Ausculation Bilateral, NORMAL BREATHING PATTERN - Cardiovascular Exam Cardiovascular Exam: REGULAR RHYTHM, +S1, +S2. absent: Murmur - GI/Abdominal Exam GI & Abdominal Exam: Soft, Normal Bowel Sounds. absent: Tenderness Additional comments: drain in place seropurulent fluids 10cc - Rectal Exam Rectal Exam: NORMAL INSPECTION - Exam Exam: NORMAL INSPECTION External exam: NORMAL EXTERNAL EXAM - Extremities Exam Extremities Exam: Full ROM, Normal Capillary Refill, Normal Inspection. absent : Joint Swelling, Pedal Edema - Back Exam Back Exam: NORMAL INSPECTION - Neurological Exam Neurological Exam: Alert, Awake, CN II-XII Intact, Normal Gait, Oriented x3 - Psychiatric Exam Psychiatric exam: Normal Affect, Normal Mood - Skin Skin Exam: Dry, Intact, Normal Color, Warm Assessment and Plan - Assessment and Plan (Free Text) Assessment: sp drain for perforated appendecitis ABX ID consult REgular diet DW Dr. Barragan <Mati Barragan - Last Filed: 08/28/17 11:43> Subjective - Subjective Subjective: Patient was seen and examined at the bedside. Agree with resident's note above. Objective - Vital Signs/Intake and Output Vital Signs (last 24 hours): Temp Pulse Resp BP Pulse Ox 98.2 F 92 H 19 123/81 96 08/28/17 07:54 08/28/17 07:54 08/28/17 07:54 08/28/17 07:54 08/28/17 07:54 Intake and Output: 08/28/17 08/28/17 06:59 18:59 Output Total 10 Balance -10 - Medications Medications: Current Medications Acetaminophen (Tylenol 325mg Tab) 650 mg PO Q6 PRN PRN Reason: Fever >100.4 F Last Admin: 08/24/17 23:44 Dose: 650 mg Acetaminophen (Tylenol 650 Mg Supp) 650 mg GA ONCE [facility] Last Admin: 08/22/17 08:18 Dose: 650 mg Enoxaparin Sodium (Lovenox) 40 mg SC DAILY [facility] PRN Reason: Protocol Last Admin: 08/26/17 09:40 Dose: 40 mg Lactated Ringer's (Lactated Ringer's) 1,000 mls @ 125 mls/hr IV .Q8H [facility] Last Admin: 08/28/17 10:00 Dose: Not Given Metronidazole (Flagyl 500mg/100ml Ns) 100 mls @ 100 mls/hr IVPB Q8 [facility] PRN Reason: Protocol Last Admin: 08/28/17 08:56 Dose: 100 mls/hr Meropenem 1 gm/ Sodium (Chloride) 100 mls @ 100 mls/hr IVPB Q8 [facility] PRN Reason: Protocol Last Admin: 08/28/17 08:57 Dose: 100 mls/hr Famotidine (Pepcid 20mg/50ml Premix) 20 mg in 50 mls @ 100 mls/hr IVPB BID [facility] Last Admin: 08/28/17 08:58 Dose: 100 mls/hr Sodium Chloride (Sodium Chloride 0.9%) 1,000 mls @ 100 mls/hr IV .Q10H [facility] Last Admin: 08/28/17 00:15 Dose: Not Given Ibuprofen (Motrin Tab) 600 mg PO Q6 PRN PRN Reason: Headache Last Admin: 08/25/17 10:44 Dose: 600 mg Ketorolac Tromethamine (Toradol) 30 mg IVP Q6 PRN PRN Reason: Pain, severe (8-10) Last Admin: 08/28/17 10:01 Dose: 30 mg Metoclopramide HCl (Reglan) 10 mg IVP Q6 PRN PRN Reason: Nausea/Vomiting Last Admin: 08/26/17 20:22 Dose: 10 mg Oxycodone/Acetaminophen (Percocet 5/325 Mg Tab) 1 tab PO Q4 PRN PRN Reason: Pain, severe (8-10) Stop: 08/30/17 12:19 Last Admin: 08/27/17 18:25 Dose: 1 tab - Labs Labs: 08/28/17 05:35 08/28/17 05:35 PT 15.9 Seconds (9.8-13.1) H 08/22/17 07:44 INR 1.4 (0.9-1.2) H 08/22/17 07:44 APTT 26.3 Seconds (25.6-37.1) 08/22/17 07:44 Assessment and Plan - Assessment and Plan (Free Text) Plan: - regular diet - Antibiotics - Out of bed and ambulate - Repeat labs in am - Will follow
--- NOTE | 2017-08-28 12:24 | CP.PCM.PN ---
Subjective - Date & Time of Evaluation Date of Evaluation: 08/28/17 Time of Evaluation: 09:00 - Subjective Subjective: s/p IR drainage no fever or pain Objective - Vital Signs/Intake and Output Vital Signs (last 24 hours): Temp Pulse Resp BP Pulse Ox 98.2 F 92 H 19 123/81 96 08/28/17 07:54 08/28/17 07:54 08/28/17 07:54 08/28/17 07:54 08/28/17 07:54 Intake and Output: 08/28/17 08/28/17 06:59 18:59 Output Total 10 Balance -10 - Medications Medications: Current Medications Acetaminophen (Tylenol 325mg Tab) 650 mg PO Q6 PRN PRN Reason: Fever >100.4 F Last Admin: 08/24/17 23:44 Dose: 650 mg Acetaminophen (Tylenol 650 Mg Supp) 650 mg [place] ONCE [facility] Last Admin: 08/22/17 08:18 Dose: 650 mg Enoxaparin Sodium (Lovenox) 40 mg SC DAILY [facility] PRN Reason: Protocol Last Admin: 08/26/17 09:40 Dose: 40 mg Lactated Ringer's (Lactated Ringer's) 1,000 mls @ 125 mls/hr IV .Q8H [facility] Last Admin: 08/28/17 10:00 Dose: Not Given Metronidazole (Flagyl 500mg/100ml Ns) 100 mls @ 100 mls/hr IVPB Q8 [facility] PRN Reason: Protocol Last Admin: 08/28/17 08:56 Dose: 100 mls/hr Meropenem 1 gm/ Sodium (Chloride) 100 mls @ 100 mls/hr IVPB Q8 [facility] PRN Reason: Protocol Last Admin: 08/28/17 08:57 Dose: 100 mls/hr Famotidine (Pepcid 20mg/50ml Premix) 20 mg in 50 mls @ 100 mls/hr IVPB BID [facility] Last Admin: 08/28/17 08:58 Dose: 100 mls/hr Sodium Chloride (Sodium Chloride 0.9%) 1,000 mls @ 100 mls/hr IV .Q10H [facility] Last Admin: 08/28/17 12:09 Dose: Not Given Ibuprofen (Motrin Tab) 600 mg PO Q6 PRN PRN Reason: Headache Last Admin: 05/27/18 10:44 Dose: 600 mg Ketorolac Tromethamine (Toradol) 30 mg IVP Q6 PRN PRN Reason: Pain, severe (8-10) Last Admin: 08/28/17 10:01 Dose: 30 mg Metoclopramide HCl (Reglan) 10 mg IVP Q6 PRN PRN Reason: Nausea/Vomiting Last Admin: 08/26/17 20:22 Dose: 10 mg Oxycodone/Acetaminophen (Percocet 5/325 Mg Tab) 1 tab PO Q4 PRN PRN Reason: Pain, severe (8-10) Stop: 08/30/17 12:19 Last Admin: 08/27/17 18:25 Dose: 1 tab - Labs Labs: 08/28/17 05:35 08/28/17 05:35 PT 15.9 Seconds (9.8-13.1) H 08/22/17 07:44 INR 1.4 (0.9-1.2) H 08/22/17 07:44 APTT 26.3 Seconds (25.6-37.1) 08/22/17 07:44 - Constitutional Appears: Non-toxic, Chronically Ill - Head Exam Head Exam: NORMOCEPHALIC - Eye Exam Eye Exam: PERRL - ENT Exam ENT Exam: Mucous Membranes Dry - Neck Exam Neck Exam: absent: Lymphadenopathy - Respiratory Exam Respiratory Exam: Decreased Breath Sounds - Cardiovascular Exam Cardiovascular Exam: REGULAR RHYTHM - GI/Abdominal Exam GI & Abdominal Exam: Distended, Soft - Rectal Exam Rectal Exam: Deferred - Exam Exam: NORMAL INSPECTION Assessment and Plan (1) Acute perforated appendicitis Status: Acute - Assessment and Plan (Free Text) Assessment: cont po antibiotics upon discharge- PO augmentin or levaquin / flagyl x 7 days
[2017-08-29] MEDS: metroNIDAZOLE 500mg/100ml NS 100 ML IVPB SCH ×3 (00:02→17:03)
[2017-08-29] MEDS: Meropenem 1 GM in Sodium Chloride 0.9% 100 ML IVPB SCH ×2 (01:16→11:33)
--- NOTE | 2017-08-29 08:20 | CP.PCM.PN ---
Subjective - Date & Time of Evaluation Date of Evaluation: 08/29/17 Time of Evaluation: 08:18 - Subjective Subjective: General Surgery Progress Note 42M seen and examined at bedside. AAO x 3 and NAD. States that he feels better today. Denies any acute overnight events. Denies any new complaints. Tolerating diet. Denies any recent N/V/F/C/CP/SOB Objective - Vital Signs/Intake and Output Vital Signs (last 24 hours): Temp Pulse Resp BP Pulse Ox 98.4 F 79 19 117/76 97 08/29/17 00:39 08/29/17 00:39 08/29/17 00:39 08/29/17 00:39 08/29/17 00:39 Intake and Output: 08/29/17 08/29/17 06:59 18:59 Output Total 48 Balance -48 - Medications Medications: Current Medications Acetaminophen (Tylenol 325mg Tab) 650 mg PO Q6 PRN PRN Reason: Fever >100.4 F Last Admin: 08/24/17 23:44 Dose: 650 mg Acetaminophen (Tylenol 650 Mg Supp) 650 mg NM ONCE [facility] Last Admin: 08/22/17 08:18 Dose: 650 mg Enoxaparin Sodium (Lovenox) 40 mg SC DAILY [facility] PRN Reason: Protocol Last Admin: 08/26/17 09:40 Dose: 40 mg Lactated Ringer's (Lactated Ringer's) 1,000 mls @ 125 mls/hr IV .Q8H [facility] Last Admin: 08/28/17 17:12 Dose: Not Given Metronidazole (Flagyl 500mg/100ml Ns) 100 mls @ 100 mls/hr IVPB Q8 [facility] PRN Reason: Protocol Last Admin: 08/29/17 00:02 Dose: 100 mls/hr Famotidine (Pepcid 20mg/50ml Premix) 20 mg in 50 mls @ 100 mls/hr IVPB BID [facility] Last Admin: 08/28/17 17:03 Dose: 100 mls/hr Sodium Chloride (Sodium Chloride 0.9%) 1,000 mls @ 100 mls/hr IV .Q10H [facility] Last Admin: 08/28/17 17:05 Dose: 100 mls/hr Meropenem 1 gm/ Sodium (Chloride) 100 mls @ 100 mls/hr IVPB Q8 [facility] PRN Reason: Protocol Last Admin: 08/29/17 01:16 Dose: 100 mls/hr Ibuprofen (Motrin Tab) 600 mg PO Q6 PRN PRN Reason: Headache Last Admin: 08/25/17 10:44 Dose: 600 mg Ketorolac Tromethamine (Toradol) 30 mg IVP Q6 PRN PRN Reason: Pain, severe (8-10) Last Admin: 08/28/17 20:28 Dose: 30 mg Metoclopramide HCl (Reglan) 10 mg IVP Q6 PRN PRN Reason: Nausea/Vomiting Last Admin: 08/26/17 20:22 Dose: 10 mg Oxycodone/Acetaminophen (Percocet 5/325 Mg Tab) 1 tab PO Q4 PRN PRN Reason: Pain, severe (8-10) Stop: 08/30/17 12:19 Last Admin: 08/27/17 18:25 Dose: 1 tab - Labs Labs: 08/28/17 05:35 08/28/17 05:35 PT 15.9 Seconds (9.8-13.1) H 08/22/17 07:44 INR 1.4 (0.9-1.2) H 08/22/17 07:44 APTT 26.3 Seconds (25.6-37.1) 08/22/17 07:44 - Constitutional Appears: Well, Non-toxic, No Acute Distress - Head Exam Head Exam: ATRAUMATIC, NORMOCEPHALIC - GI/Abdominal Exam GI & Abdominal Exam: Soft, Normal Bowel Sounds. absent: Tenderness Additional comments: Drain still in place 48 cc thick vaughn drainage - Neurological Exam Neurological Exam: Alert, Awake, Oriented x3 - Psychiatric Exam Psychiatric exam: Normal Affect, Normal Mood Assessment and Plan - Assessment and Plan (Free Text) Assessment: 42M 2 days s/p drain for perforated appendicitis Plan: ABX ID consult appreciated WBC 9.9 from 13.1 F/u wound cx from abscess Regular diet Out of bed and ambulate Monitor drain output Will follow JOEY Chan
[2017-08-29 08:23] LABS: HEMOGLOBIN 12.7 g/dL (12.0-18.0); MEAN CELL VOLUME 80.2 fl (80.0-94.0); MEAN CORPUSCULAR HEMOGLOBIN 27.4 pg (27.0-31.0); MEAN CORPUSCULAR HGB CONC 34.1 g/dL (33.0-37.0); RBC 4.63 Mil/uL (4.40-5.90); RED CELL DISTRIBUTION WIDTH 14.7 % (11.5-14.5); WHITE BLOOD COUNT 9.9 K/uL (4.8-10.8)
[2017-08-29 09:08] VITALS: RESP 20
[2017-08-29] MEDS: Sodium Chloride 0.9% 1,000 ML IV SCH (09:37)
[2017-08-29] MEDS: Enoxaparin 40 mg Syringe SC SCH (11:33)
[2017-08-29] MEDS: Famotidine 20mg/50ml 20 MG/50 ML BAG IVPB SCH ×2 (11:34→17:04)
--- NOTE | 2017-08-29 11:56 | CP.PCM.DIS ---
Provider - Provider Date of Admission: 08/22/17 00:40 Attending physician: Aldo Huertas DO Primary care physician: none Consults: surgery consult ID consult Time Spent in preparation of Discharge (in minutes): 15 Hospital Course - Lab Results Lab Results: Micro Results 08/27/17 13:25 Abscess - Abdominal Cavity Gram Stain - Final 08/27/17 13:25 Abscess - Abdominal Cavity Wound Culture - Preliminary Gram Negative Basil 08/23/17 15:39 Blood-Venous Blood Culture - Final NO GROWTH AFTER 5 DAYS 08/23/17 15:39 Blood-Venous Gram Stain - Final TEST NOT PERFORMED 08/23/17 15:29 Blood-Venous Blood Culture - Final NO GROWTH AFTER 5 DAYS 08/23/17 15:29 Blood-Venous Gram Stain - Final TEST NOT PERFORMED 08/21/17 23:50 Blood-Venous Blood Culture - Final NO GROWTH AFTER 5 DAYS 08/21/17 23:50 Blood-Venous Gram Stain - Final TEST NOT PERFORMED 08/24/17 06:40 Urine Urine Culture - Final No Growth (<1,000 CFU/ML) Most Recent Lab Values WBC 9.9 K/uL (4.8-10.8) 08/29/17 08:17 RBC 4.63 Mil/uL (4.40-5.90) 08/29/17 08:17 Hgb 12.7 g/dL (12.0-18.0) 08/29/17 08:17 Hct 37.2 % (35.0-51.0) 08/29/17 08:17 MCV 80.2 fl (80.0-94.0) 08/29/17 08:17 MCH 27.4 pg (27.0-31.0) 08/29/17 08:17 MCHC 34.1 g/dL (33.0-37.0) 08/29/17 08:17 RDW 14.7 % (11.5-14.5) H 08/29/17 08:17 Plt Count 513 K/uL (130-400) H D 08/29/17 08:17 MPV 7.9 fl (7.2-11.7) 08/28/17 05:35 Neut % (Auto) 72.3 % (50.0-75.0) 08/28/17 05:35 Lymph % (Auto) 19.3 % (20.0-40.0) L 08/28/17 05:35 Sampson % (Auto) 7.6 % (0.0-10.0) 08/28/17 05:35 Eos % (Auto) 0.4 % (0.0-4.0) 08/28/17 05:35 Baso % (Auto) 0.4 % (0.0-2.0) 08/28/17 05:35 Neut # (Auto) 9.5 K/uL (1.8-7.0) H 08/28/17 05:35 Lymph # (Auto) 2.5 K/uL (1.0-4.3) 08/28/17 05:35 Sampson # (Auto) 1.0 K/uL (0.0-0.8) H 08/28/17 05:35 Eos # (Auto) 0.0 K/uL (0.0-0.7) 08/28/17 05:35 Baso # (Auto) 0.1 K/uL (0.0-0.2) 08/28/17 05:35 Neutrophils % (Manual) 85 % (42-75) H 08/22/17 00:05 Band Neutrophils % 1 % (0-2) 08/22/17 00:05 Lymphocytes % (Manual) 10 % (20-50) L 08/22/17 00:05 Monocytes % (Manual) 3 % (0-10) 08/22/17 00:05 Basophils % (Manual) 1 % (0-2) 08/22/17 00:05 Platelet Estimate Normal (NORMAL) 08/22/17 00:05 Anisocytosis (manual) Slight 08/22/17 00:05 PT 15.9 Seconds (9.8-13.1) H 08/22/17 07:44 INR 1.4 (0.9-1.2) H 08/22/17 07:44 APTT 26.3 Seconds (25.6-37.1) 08/22/17 07:44 Sodium 139 mmol/l (132-148) 08/28/17 05:35 Potassium 3.8 MMOL/L (3.6-5.0) 08/28/17 05:35 Chloride 100 mmol/L (98-107) 08/28/17 05:35 Carbon Dioxide 22 mmol/L (22-30) 08/28/17 05:35 Anion Gap 21 (10-20) H 08/28/17 05:35 BUN 15 mg/dl (9-20) 08/28/17 05:35 Creatinine 0.6 mg/dl (0.8-1.5) L 08/28/17 05:35 Est GFR ( Amer) > 60 08/28/17 05:35 Est GFR (Non-Af Amer) > 60 08/28/17 05:35 Random Glucose 101 mg/dL (75-110) 08/28/17 05:35 Lactic Acid 0.9 MMOL/L (0.7-2.1) 08/23/17 17:16 Calcium 8.6 mg/dL (8.4-10.2) 08/28/17 05:35 Magnesium 2.2 MG/DL (1.6-2.3) 08/26/17 05:25 Total Bilirubin 0.6 mg/dl (0.2-1.3) 08/28/17 05:35 AST 29 U/L (17-59) 08/28/17 05:35 ALT 37 U/L (21-72) 08/28/17 05:35 Alkaline Phosphatase 84 U/L (38-126) 08/28/17 05:35 Total Protein 6.5 G/DL (6.3-8.2) 08/28/17 05:35 Albumin 3.1 g/dL (3.5-5.0) L D 08/28/17 05:35 Globulin 3.4 gm/dL (2.2-3.9) 08/28/17 05:35 Albumin/Globulin Ratio 0.9 (1.0-2.1) L 08/28/17 05:35 Lipase 55 U/L (23-300) 08/22/17 00:05 Procalcitonin 13.90 NG/ML (0.19-0.49) H 08/23/17 17:16 Urine Color Karina (YELLOW) 08/24/17 06:40 Urine Clarity Slighty-cloudy (Clear) 08/24/17 06:40 Urine pH 6.0 (5.0-8.0) 08/24/17 06:40 Ur Specific [place] 1.026 (1.003-1.030) 08/24/17 06:40 Urine Protein 100 mg/dL (NEGATIVE) 08/24/17 06:40 Urine Glucose (UA) 50 mg/dL (Normal) 08/24/17 06:40 Urine Ketones Trace mg/dL (NEGATIVE) 08/24/17 06:40 Urine Blood Negative (NEGATIVE) 08/24/17 06:40 Urine Nitrate Negative (NEGATIVE) 08/24/17 06:40 Urine Bilirubin Negative (NEGATIVE) 08/24/17 06:40 Urine Urobilinogen 4.0 mg/dL (0.2-1.0) 08/24/17 06:40 Ur Leukocyte Esterase Trace Deon/uL (Negative) 08/24/17 06:40 Urine RBC (Auto) 8 /hpf (0-3) H 08/24/17 06:40 Urine Microscopic WBC 34 /hpf (0-5) H 08/24/17 06:40 Ur Squamous Epith Cells < 1 /hpf (0-5) 08/24/17 06:40 Urine Bacteria Rare (<OCC) 08/24/17 06:40 HIV 1&2 Antibody Screen Negative (NEGATIVE) 08/24/17 06:30 - Hospital Course Hospital Course: 42 y/o M with no significant PMH , came in because of fever and severe abdominal pain. CT of abdomen showed Rupture Appendicitis. Patient was admitted to Med Surg for acute perforated appendicitis and started on IV antibiotics. Surgery and ID were consulted.He underwent IR drainage of abscess with pig tail placement. Patient received Meropenem and Flagyl IV . He is clinically stable, hemodynamically stable, afebrile WBC normalized . Cleared for discharge by surgery . Will d/c with pigtail in place PO flagyl and Levaquine for 7 days . Follow up withDr. Barragan in 1 week 1. Acute Perforated Appendicitis Discharge Exam - Head Exam Head Exam: ATRAUMATIC, NORMOCEPHALIC - Eye Exam Eye Exam: EOMI, Normal appearance, PERRL Pupil Exam: NORMAL ACCOMODATION - ENT Exam ENT Exam: Mucous Membranes Dry, Normal Exam - Neck Exam Neck exam: Full Rom, Normal Inspection - Respiratory Exam Respiratory Exam: Clear to PA & Lateral, NORMAL BREATHING PATTERN. absent: Rales, Rhonchi, Wheezes - Cardiovascular Exam Cardiovascular Exam: REGULAR RHYTHM, RRR, +S1, +S2. absent: JVD - GI/Abdominal Exam GI & Abdominal Exam: Normal Bowel Sounds, Soft. absent: Distended, Guarding, Rebound, Tenderness Additional comments: RLQ pig tail in place - Rectal Exam Rectal Exam: Deferred - Extremities Exam Extremities exam: normal capillary refill, normal inspection, pedal pulses present - Back Exam Back exam: NORMAL INSPECTION - Neurological Exam Neurological exam: Alert, CN II-XII Intact, Oriented x3, Reflexes Normal - Psychiatric Exam Psychiatric exam: Normal Affect, Normal Mood - Skin Skin Exam: Dry, Intact, Normal Color, Warm Discharge Plan - Discharge Medications Prescriptions: levoFLOXacin [Levaquin] 750 mg PO DAILY #7 tab Metronidazole [Flagyl] 500 mg PO TID #21 tablet - Follow Up Plan Condition: STABLE Disposition: HOME/ ROUTINE Patient education suggested?: Yes Instructions: Appendicitis, Adult (DC), Abscess Drainage, Percutaneous (DC), Chest Tubes, How to Care for a Pleural Catheter Referrals: [facility] [Outside] Mati Barragan MD [Staff Provider] -
--- NOTE | 2017-08-29 12:02 | CP.PCM.PN ---
Subjective - Date & Time of Evaluation Date of Evaluation: 08/29/17 Time of Evaluation: 10:00 - Subjective Subjective: Pt seen and examined in bed this am. Reports feeling significantly better since admission. (-) N/V/D/C. Pt tolerating PO intake. Reports having some mild RLQ pain. PE: Gen: Pt seen and examined laying in bed in NAD Skin: Warm and dry Cardio: [id number] Lungs: CTA bilaterally Abd: Soft, mild RLQ tenderness, (+) drain with ~ 10 ml A/P Perforated appendicitis ? if accuracy in documentation of 110ml output from overnight shift that RN reported to me, as pt has been having <50ml output in documentation, and also noted during exam ~10 ml. D/C from surgery with f/u in the office with Dr. Barragan, pt to call office for appointment. Pt to go home with PO antibiotics, flagyl and levaquin as per hospitalist. Pt to be educated on drain care and it will be removed in the office. Case discussed with hospitalist and surgical team. Objective - Vital Signs/Intake and Output Vital Signs (last 24 hours): Temp Pulse Resp BP Pulse Ox 98.2 F 81 20 123/80 98 08/29/17 09:00 08/29/17 09:00 08/29/17 09:00 08/29/17 09:00 08/29/17 09:00 Intake and Output: 08/29/17 08/29/17 06:59 18:59 Output Total 48 Balance -48 - Medications Medications: Current Medications Acetaminophen (Tylenol 325mg Tab) 650 mg PO Q6 PRN PRN Reason: Fever >100.4 F Last Admin: 08/24/17 23:44 Dose: 650 mg Acetaminophen (Tylenol 650 Mg Supp) 650 mg NH ONCE SHANKAR Last Admin: 08/22/17 08:18 Dose: 650 mg Enoxaparin Sodium (Lovenox) 40 mg SC DAILY SHANKAR PRN Reason: Protocol Last Admin: 08/29/17 11:33 Dose: 40 mg Metronidazole (Flagyl 500mg/100ml Ns) 100 mls @ 100 mls/hr IVPB Q8 SHANKAR PRN Reason: Protocol Last Admin: 08/29/17 09:35 Dose: 100 mls/hr Famotidine (Pepcid 20mg/50ml Premix) 20 mg in 50 mls @ 100 mls/hr IVPB BID SHANKAR Last Admin: 08/29/17 11:34 Dose: 100 mls/hr Meropenem 1 gm/ Sodium (Chloride) 100 mls @ 100 mls/hr IVPB Q8 SHANKAR PRN Reason: Protocol Last Admin: 08/29/17 11:33 Dose: 100 mls/hr Ibuprofen (Motrin Tab) 600 mg PO Q6 PRN PRN Reason: Headache Last Admin: 08/25/17 10:44 Dose: 600 mg Ketorolac Tromethamine (Toradol) 30 mg IVP Q6 PRN PRN Reason: Pain, severe (8-10) Last Admin: 08/28/17 20:28 Dose: 30 mg Metoclopramide HCl (Reglan) 10 mg IVP Q6 PRN PRN Reason: Nausea/Vomiting Last Admin: 08/26/17 20:22 Dose: 10 mg Oxycodone/Acetaminophen (Percocet 5/325 Mg Tab) 1 tab PO Q4 PRN PRN Reason: Pain, severe (8-10) Stop: 08/30/17 12:19 Last Admin: 08/27/17 18:25 Dose: 1 tab - Labs Labs: 08/29/17 08:17 08/28/17 05:35 PT 15.9 Seconds (9.8-13.1) H 08/22/17 07:44 INR 1.4 (0.9-1.2) H 08/22/17 07:44 APTT 26.3 Seconds (25.6-37.1) 08/22/17 07:44 Assessment and Plan - Assessment and Plan (Free Text) Assessment: see above
[2017-08-29 16:27] VITALS: BP 127/81; PULSE 88; TEMP 98.8; O2SAT 95
== END 2017-08-29 19:35 | disposition home or self-care (01) | DRG 895 ==
LOC: H.ER 22:09 → H.ERHOLD 08-22 00:40 → H.MEDSURG1 08-22 02:31
PROVIDERS: ADMIT Internal Medicine; ATTEND Internal Medicine
PROC: 0W9F30Z Drainage of Abdominal Wall with Drainage Device, Percutaneous Approach (ICD-10-PCS; principal; 2017-08-27 10:15)
DX: K35.3 Acute appendicitis with localized peritonitis (principal); R94.31 Abnormal electrocardiogram [ECG] [EKG]; I45.10 Unspecified right bundle-branch block; D72.829 Elevated white blood cell count, unspecified; K29.70 Gastritis, unspecified, without bleeding

== ENCOUNTER 2017-09-13 19:02 | Inpatient (IN) | payer OTHER ==
[2017-09-13] MEDS ORDERED: Iohexol 240 (50 ml) PO ONE (19:59)
[2017-09-13] MEDS ORDERED: Sodium Chloride 0.9% 1,000 ML IV STA (20:00)
[2017-09-13] MEDS ORDERED: Iohexol 240 (50 ml) ONE (20:17)
--- NOTE | 2017-09-13 20:22 | ED PDOC ---
HPI: General Adult Time Seen by Provider: 09/13/17 19:44 Chief Complaint (Nursing): Flu-like Symptoms Chief Complaint (Provider): fever, abdominal pain, constipation History Per: Patient History/Exam Limitations: no limitations Onset/Duration Of Symptoms: Days (x2), Intermittent Episodes (cramping) Current Symptoms Are (Timing): Still Present Additional Complaint(s): 42 year old male presents to the emergency department complaining of cramping intermittent umbilical and epigastric pain onset two days. Patient notes it is accompanied by constipation, gas, and back pain while sleeping, but denies nausea, vomiting, and diarrhea. He was seen in the ED 08/22/17 and was diagnosed with appendicitis, to which he promptly had an appendectomy, staying ten days as an inpatient. Patient came in today after developing a fever, dry cough, and chills. PMD: none provided Past Medical History Reviewed: Historical Data, Nursing Documentation, Vital Signs Vital Signs: Last Vital Signs Temp 99.4 F 09/13/17 19:13 Pulse 125 H 09/13/17 19:13 Resp 18 09/13/17 19:13 BP 117/70 09/13/17 19:13 Pulse Ox 99 09/13/17 23:44 - Medical History PMH: Denies: HIV, Chronic Kidney Disease - Surgical History Surgical History: Appendectomy - Family History Family History: States: Unknown Family Hx - Social History Current smoker - smoking cessation education provided: No Alcohol: None Drugs: Denies - Home Medications Home Medications: Ambulatory Orders Medication Instructions Recorded Metronidazole [Flagyl] 500 mg PO TID #21 tablet 08/29/17 levoFLOXacin [Levaquin] 750 mg PO DAILY #7 tab 08/29/17 oxyCODONE/Acetaminophen [Percocet 1 tab PO Q6 PRN #20 tab 08/29/17 5/325 mg Tab] - Allergies Allergies/Adverse Reactions: Allergies Allergy/AdvReac Type Severity Reaction Status Date / Time No Known Allergies Allergy Verified 08/20/17 19:58 Review of Systems ROS Statement: Except As Marked, All Systems Reviewed And Found Negative Constitutional: Positive for: Fever, Chills Respiratory: Positive for: Cough (dry) Gastrointestinal: Positive for: Abdominal Pain (cramping intermittent umbilical and epigastric pain), Constipation, Other (gaseous). Negative for: Nausea, Vomiting, Diarrhea Musculoskeletal: Positive for: Back Pain (while sleeping) Physical Exam - Reviewed Nursing Documentation Reviewed: Yes Vital Signs Reviewed: Yes - Physical Exam Appears: Positive for: No Acute Distress Head Exam: Positive for: ATRAUMATIC, NORMOCEPHALIC Skin: Positive for: Normal Color, Warm, Dry Eye Exam: Positive for: Normal appearance ENT: Positive for: Normal ENT Inspection Neck: Positive for: Normal, Painless ROM, Supple Cardiovascular/Chest: Positive for: Regular Rate, Rhythm. Negative for: Murmur Respiratory: Positive for: Normal Breath Sounds. Negative for: Accessory Muscle Use, Wheezing, Respiratory Distress Gastrointestinal/Abdominal: Positive for: Normal Exam, Soft, Other (surgery scars healing well, no discharge or erythema). Negative for: Tenderness, Mass, Distended, Rebound Back: Positive for: Normal Inspection. Negative for: L CVA Tenderness, R CVA Tenderness Extremity: Positive for: Normal ROM Neurologic/Psych: Positive for: Alert, Oriented (x3). Negative for: Motor/ Sensory Deficits - Laboratory Results Result Diagrams: 09/13/17 20:48 09/13/17 20:48 - ECG O2 Sat by Pulse Oximetry: 99 (RA) Pulse Ox Interpretation: Normal Medical Decision Making Medical Decision Making: Initial Impression: abdominal pain, constipation, fever Ddx: small bowel obstruction, intra abdominal abscess, post operation complications Time: 19:59 Initial Plan: --VBG shock panel --Abd/Pelvis PO and IV contrast CT --CMP --Urine dipstick --CBC with differential --Chest XR --Sodium chloride 0.9% 1000ml IV --Iohexol 50ml PO --Blood culture 22:38 CXR FINDINGS: Lungs: Unremarkable. No consolidation. Pleural space: Unremarkable. No pneumothorax. Heart: Unremarkable. No cardiomegaly. Mediastinum: Unremarkable. Bones/joints: Unremarkable. IMPRESSION: Normal chest x-rays. 23:00 -Spoke with surgical aide who will discuss case Dr. Lopez. 23:15 Abdomen/Pelvis CT FINDINGS: Lung bases: Bibasilar atelectasis and scarring. ABDOMEN: Liver: The liver is normal in appearance. Gallbladder and bile ducts: The gallbladder is normal. No calcified stones. No ductal dilation. Pancreas: The pancreas is normal. No ductal dilation. Spleen: The spleen is normal. Adrenals: The adrenal glands are normal. Kidneys and ureters: The kidneys are normal. The ureters are normal. No hydronephrosis. Stomach and bowel: The or diffuse wall thickening in the cecum, terminal ileum, and sigmoid colon within the right lower quadrant adjacent to a pericecal fluid collection which measures 2.6 cm x 4.0 cm x 2.7 cm consistent with a small abscess. This abscess appears slightly decreased in size from 08/26/2017 exam, previously measuring 3.8 cm x 6.1 cm x 5.6 cm when compared with a similar location. No obstruction. PELVIS: Appendix: No findings to suggest acute appendicitis. Bladder: The bladder is normal. Reproductive: The prostate gland demonstrates nonspecific parenchymal calcifications. ABDOMEN and PELVIS: Intraperitoneal space: Normal. No free air. No significant fluid collection. Bones/joints: Normal appearance of the osseous structures. No acute fracture. No dislocation. Soft tissues: Normal. Vasculature: Normal. No abdominal aortic aneurysm. Lymph nodes: Several enlarged right lower quadrant lymph nodes are present, similar in appearance to 08/26/2017. IMPRESSION: 1. Right lower quadrant pericecal abscess in this patient who is status post appendectomy. This abscess now measures 2.6 cm x 4.0 cm x 2.7 cm, decreased in size from the 2017 exam. 2. Extensive bowel wall thickening of the cecum, terminal, and sigmoid colon adjacent to the abscess. This is new from the prior exam. 3. Right lower quadrant lymph nodes, likely reactive. 23:25 -Spoke with surgical aide will admit the patient under Dr. Lopez. -Ordered IR Drain abscess periton perc [CT] and Cefepime 23:43 -Spoke with Dr. Lopez who admitted patient to med surg inpatient. Scribe Attestation: Documented by Chantell Sotelo, acting as a scribe for Samira Gonzalez MD. Provider Scribe Attestation: All medical entries made by the Scribe were at my direction and personally dictated by me. I have reviewed the chart and agree that the record accurately reflects my personal performance of the history, physical exam, medical decision making, and the department course for this patient. I have also personally directed, reviewed, and agree with the discharge instructions and disposition. Disposition - Clinical Impression Clinical Impression: Intra-abdominal abscess - Patient ED Disposition Is Patient to be Admitted: Yes Discussed With DrSheryl: Toni Lopez Doctor Will See Patient In The: ED Counseled Patient/Family Regarding: Studies Performed, Diagnosis - Disposition Disposition Time: 23:30 Condition: FAIR - Pt Status Changed To: Hospital Disposition Of: Inpatient - Admit Certification Admit to Inpatient:: After my assessment, the patient will require hospitalization for at least two midnights. This is because of the severity of symptoms shown, intensity of services needed, and/or the medical risk in this patient being treated as an outpatient. - POA Present On Arrival: None
[2017-09-13 20:55] LABS: BASO % 0.3 % (0.0-2.0); EOS % 0.1 % (0.0-4.0); LYMPH # 2.1 K/uL (1.0-4.3); LYMPH % 14.3 % (20.0-40.0); MEAN CELL VOLUME 81.1 fl (80.0-94.0); MEAN CORPUSCULAR HEMOGLOBIN 26.9 pg (27.0-31.0); MEAN CORPUSCULAR HGB CONC 33.2 g/dL (33.0-37.0); MEAN PLATELET VOLUME 8.1 fl (7.2-11.7); MONO % 6.9 % (0.0-10.0); NEUT # 11.7 K/uL (1.8-7.0); NEUT % 78.4 % (50.0-75.0); NRBC % 0.1 % (0.0-0.0); RBC 4.83 Mil/uL (4.40-5.90); RED CELL DISTRIBUTION WIDTH 15.2 % (11.5-14.5)
[2017-09-13 21:00] LABS: WHITE BLOOD COUNT 14.9 K/uL (4.8-10.8)
[2017-09-13 21:04] LABS: ALT/SGPT 36 U/L (21-72); AST/SGOT 18 U/L (17-59); BLOOD UREA NITROGEN 10 mg/dl (9-20); GFR AFRICAN-AMERICAN > 60; GFR NON-AFRICAN AMERICAN > 60
[2017-09-13] MEDS ORDERED: Sodium Chloride 0.9% 50 ML IV ONE (21:06)
[2017-09-13] MEDS ORDERED: Iohexol 300 100 ML IJ ONE (21:06)
[2017-09-13 21:12] LABS: VENOUS BLOOD GAS BASE EXCESS 1.3 mmol/L (0.0-2.0); VENOUS BLOOD GAS PCO2 40 mmHg (40-60); VENOUS BLOOD GAS PO2 38 mm/Hg (30-55); VENOUS BLOOD PH 7.42 (7.32-7.43)
[2017-09-13] MEDS ORDERED: Cefepime 2 GM in Sodium Chloride 0.9% 100 ML IVPB STA (23:19)
--- NOTE | 2017-09-14 00:08 | CP.PCM.HP ---
History of Present Illness - History of Present Illness History of Present Illness: PMD: None Chief Complaint: Abdominal pain The patient was seen and examined in the ED HPI: 42 years old male was last admitted on 08/22/17 and dx with Perforated Appendicitis and Periappendicular abscess with IR drainage and Pigtail placement on 08/27/17. He was discharged on 08/19/17 with follow up with Dr Chan the surgeon. The Drain was removed on 09/11/17. He now comes referring intermittent cramping pain across the periumbilical region for 2 days. He is passing gas with temperature of 99.4F at home. No bowel movement for two days. No nausea, vomits, dysuria. PMH: No chronic diseases PSH: I&D of Josette-appendicular abscess SH: No illegal drug use; No cigaretee smoking; No Alcohol; FH: States: Unknown Family Hx Allergies: NKDA Medication: Reviewed Present on Admission - Present on Admission Any Indicators Present on Admission: No History of DVT/PE: No History of Uncontrolled Diabetes: No Urinary Catheter: No Decubitus Ulcer Present: No Review of Systems - Constitutional Constitutional: absent: Chills, Fever, Headache - EENT Eyes: absent: Diplopia, Floaters, Requires Corrective Lenses Ears: absent: Decreased Hearing, Ear Discharge, Tinnitus Nose/Mouth/Throat: absent: Epistaxis, Nasal Congestion, Nasal Discharge, Sinus Pain, Sinus Pressure - Cardiovascular Cardiovascular: absent: Chest Pain, Dyspnea, Edema - Respiratory Respiratory: absent: Cough, Dyspnea, Wheezing, Stridor - Gastrointestinal Gastrointestinal: Abdominal Pain, Constipation. absent: Nausea, Vomiting - Genitourinary Genitourinary: absent: Dysuria, Flank Pain, Urinary Frequency - Musculoskeletal Musculoskeletal: Back Pain. absent: Arthralgias, Myalgias - Integumentary Integumentary: absent: Pruritus, Rash, Skin Ulcer, Sores, Striae, Swelling - Neurological Neurological: absent: Confusion, Dizziness, Focal Weakness, Headaches, Weakness - Psychiatric Psychiatric: absent: Anxiety, Depression, Panic Attacks - Endocrine Endocrine: absent: Palpitations, Polydipsia, Polyphagia, Polyuria - Hematologic/Lymphatic Hematologic: absent: Easy Bleeding, Easy Bruising Past Patient History - Infectious Disease Hx of Infectious Diseases: None - Past Medical History & Family History Past Medical History?: No - Past Social History Smoking Status: Never Smoked Chewing Tobacco Use: No Cigar Use: No Alcohol: None Drugs: Denies Home Situation {Lives}: With Family - CARDIAC Hx Cardiac Disorders: No - PULMONARY Hx Respiratory Disorders: No - NEUROLOGICAL Hx Neurological Disorder: No - HEENT Hx HEENT Problems: No - RENAL Hx Chronic Kidney Disease: No - ENDOCRINE/METABOLIC Hx Endocrine Disorders: No - HEMATOLOGICAL/ONCOLOGICAL Hx Human Immunodeficiency Virus (HIV): No - INTEGUMENTARY Hx Dermatological Problems: No - MUSCULOSKELETAL/RHEUMATOLOGICAL Hx Musculoskeletal Disorders: No Hx Falls: No - GASTROINTESTINAL Hx Gastrointestinal Disorders: No - GENITOURINARY/GYNECOLOGICAL Hx Genitourinary Disorders: No - PSYCHIATRIC Hx Psychophysiologic Disorder: No Hx Substance Use: No - SURGICAL HISTORY Hx Appendectomy: No - ANESTHESIA Hx Anesthesia: No Meds Allergies/Adverse Reactions: Allergies Allergy/AdvReac Type Severity Reaction Status Date / Time No Known Allergies Allergy Verified 09/14/17 00:53 Physical Exam - Constitutional Appears: No Acute Distress - Head Exam Head Exam: ATRAUMATIC, NORMAL INSPECTION, NORMOCEPHALIC - Eye Exam Eye Exam: EOMI, Normal appearance Pupil Exam: NORMAL ACCOMODATION, PERRL - ENT Exam ENT Exam: Mucous Membranes Moist, Normal Exam - Neck Exam Neck exam: Positive for: Full Rom, Normal Inspection, Tenderness - Respiratory Exam Respiratory Exam: Clear to Auscultation Bilateral. absent: Rales, Rhonchi, Wheezes - Cardiovascular Exam Cardiovascular Exam: REGULAR RHYTHM, RRR, +S1, +S2. absent: Gallop, JVD - GI/Abdominal Exam Additional comments: Flat withbscar of pigtail drainage at right lower abdomen. no erythema nor edema , mild pain on palpation at periumbilical region, no guarding no rebound. - Rectal Exam Rectal Exam: Deferred - Extremities Exam Extremities exam: Positive for: full ROM, normal inspection. Negative for: calf tenderness, tenderness - Back Exam Back exam: NORMAL INSPECTION. absent: CVA tenderness (L), CVA tenderness (R) - Neurological Exam Neurological exam: Alert, CN II-XII Intact, Oriented x3, Reflexes Normal - Psychiatric Exam Psychiatric exam: Normal Affect, Normal Mood - Skin Skin Exam: Dry, Intact, Normal Color, Warm Results - Vital Signs Recent Vital Signs: Last Vital Signs Temp 99.4 F 09/13/17 19:13 Pulse 110 H 09/13/17 23:48 Resp 20 09/13/17 23:48 BP 109/72 09/13/17 23:48 Pulse Ox 100 09/13/17 23:48 abdomen/Pelvis - Labs Result Diagrams: 09/13/17 20:48 09/13/17 20:48 Labs: Laboratory Results - last 24 hr 09/13/17 09/13/17 09/13/17 20:48 20:48 21:03 WBC 14.9 H D RBC 4.83 Hgb 13.0 Hct 39.2 MCV 81.1 MCH 26.9 L MCHC 33.2 RDW 15.2 H Plt Count 341 D MPV 8.1 Neut % (Auto) 78.4 H Lymph % (Auto) 14.3 L Winston % (Auto) 6.9 Eos % (Auto) 0.1 Baso % (Auto) 0.3 Neut # (Auto) 11.7 H Lymph # (Auto) 2.1 Winston # (Auto) 1.0 H Eos # (Auto) 0.0 Baso # (Auto) 0.0 pO2 38 VBG pH 7.42 VBG pCO2 40 VBG HCO3 25.3 VBG Total CO2 27.1 VBG O2 Sat (Calc) 76.5 H VBG Base Excess 1.3 VBG Potassium 3.8 Glucose 120 H Lactate 1.1 FiO2 21.0 Sodium 137 135.0 Potassium 3.8 Chloride 99 102.0 Carbon Dioxide 24 Anion Gap 18 BUN 10 Creatinine 0.6 L Est GFR ( Amer) > 60 Est GFR (Non-Af Amer) > 60 Random Glucose 113 H Calcium 9.0 Total Bilirubin 1.7 H AST 18 ALT 36 Alkaline Phosphatase 96 Total Protein 8.1 Albumin 4.0 Globulin 4.1 H Albumin/Globulin Ratio 1.0 Venous Blood Potassium 3.8 - Imaging and Cardiology CT abdomen/Pelvid Status: Image reviewed by me, Report reviewed by me Additional comment: EXAM: CT Abdomen and Pelvis With Intravenous Contrast FINDINGS: Lung bases: Bibasilar atelectasis and scarring. ABDOMEN: Liver: The liver is normal in appearance. Gallbladder and bile ducts: The gallbladder is normal. No calcified stones. No ductal dilation. Pancreas: The pancreas is normal. No ductal dilation. Spleen: The spleen is normal. Adrenals: The adrenal glands are normal. Kidneys and ureters: The kidneys are normal. The ureters are normal. No hydronephrosis. Stomach and bowel: The or diffuse wall thickening in the cecum, terminal ileum, and sigmoid colon within the right lower quadrant adjacent to a pericecal fluid collection which measures 2.6 cm x 4.0 cm x 2.7 cm consistent with a small abscess. This abscess appears slightly decreased in size from 08/26/2017 exam, previously measuring 3.8 cm x 6.1 cm x 5.6 cm when compared with a similar location. No obstruction. PELVIS: Appendix: No findings to suggest acute appendicitis. Bladder: The bladder is normal. Reproductive: The prostate gland demonstrates nonspecific parenchymal calcifications. ABDOMEN and PELVIS: Intraperitoneal space: Normal. No free air. No significant fluid collection. Bones/joints: Normal appearance of the osseous structures. No acute fracture. No dislocation. Soft tissues: Normal. Vasculature: Normal. No abdominal aortic aneurysm. Lymph nodes: Several enlarged right lower quadrant lymph nodes are present, similar in appearance to 08/26/2017. IMPRESSION: 1. Right lower quadrant pericecal abscess in this patient who is status post appendectomy. This abscess now measures 2.6 cm x 4.0 cm x 2.7 cm, decreased in size from the 2017 exam. 2. Extensive bowel wall thickening of the cecum, terminal, and sigmoid colon adjacent to the abscess. This is new from the prior exam. 3. Right lower quadrant lymph nodes, likely reactive. Chest x-ray Status: Image reviewed by me, Report reviewed by me Assessment & Plan - Assessment and Plan (Free Text) Assessment: . Abdominal Pain #. Pericecal Abscess #. Leukocytosis Plan: 42 years old male was last admitted on 08/22/17 and dx with Perforated Appendicitis and Periappendicular abscess with IR drainage and Pigtail placement on 08/27/17, discharged on 08/19/17 and the Drain was removed on . He now comes with intermittent cramping pain across the periumbilical region for 2 days. #. Abdominal Pain in patient with an incomplete drained Pericecal Abscess. Although the pain started the following day post removal of the Pigtail drain, it is that this is the cause of the pain. - Consult Surgery Dr Contreras - Consult IR for possibly replacement of drain - Patient placed on liquid diet - Cefepim 2g IV Q12 hrs as E Coli sensitive to Cefepime grew from this abscess - IV Fluids - Pain management #. Leukocytosis - Follow WBC #. DVT prophylaxis with SCD #. Code Status: Full - Date & Time Date: 09/14/17 Time: 00:08
--- NOTE | 2017-09-14 00:11 | CP.PCM.CON ---
<Harpal Marin - Last Filed: 09/14/17 08:57> History of Present Illness - History of Present Illness History of Present Illness: General Surgery Consult note- Dr. Chan Reason for consult: Intra-abdominal abscess 42M w/ pmhx significant for perforated appendicitis in 07/2017 complicated by intra-abdominal pelvic abscess s/p IR drain placement presents to [facility] with body aches and abdominal pain localized in RLQ for one day. Patient denies associated nausea or vomiting. Regular BM and passing flatus. Patient was recently admitted for perforated appendicitis on 08/22/17. During initial hospital course IR drain was placed which drained purulent fluid. No surgical intervention was performed at that time. Repeat CT in the ER today shows no radiological signs of repeat appendicitis, however intra-abdominal abscess is present. Denies: fevers, chills, chest pain, shortness of breath, nausea, vomiting diarrhea, changes in urinary habits PMH: stated above PSH: denies ALL: NKDA SocialHx: denies tobacco, recreational drug use. ETOH socially FH: non-contributory 12 pt review of systems conducted, negative otherwise stated above Review of Systems - Review of Systems All systems: reviewed and no additional remarkable complaints except - Constitutional Constitutional: As Per HPI Past Patient History - Infectious Disease Hx of Infectious Diseases: None - Past Medical History & Family History Past Medical History?: No - Past Social History Alcohol: None Drugs: Denies - CARDIAC Hx Cardiac Disorders: No - PULMONARY Hx Respiratory Disorders: No - NEUROLOGICAL Hx Neurological Disorder: No - HEENT Hx HEENT Problems: No - RENAL Hx Chronic Kidney Disease: No - ENDOCRINE/METABOLIC Hx Endocrine Disorders: No - HEMATOLOGICAL/ONCOLOGICAL Hx Human Immunodeficiency Virus (HIV): No - INTEGUMENTARY Hx Dermatological Problems: No - MUSCULOSKELETAL/RHEUMATOLOGICAL Hx Musculoskeletal Disorders: No Hx Falls: No - GASTROINTESTINAL Hx Gastrointestinal Disorders: No - GENITOURINARY/GYNECOLOGICAL Hx Genitourinary Disorders: No - PSYCHIATRIC Hx Psychophysiologic Disorder: No Hx Substance Use: No - SURGICAL HISTORY Hx Appendectomy: Yes - ANESTHESIA Hx Anesthesia: No Meds Allergies/Adverse Reactions: Allergies Allergy/AdvReac Type Severity Reaction Status Date / Time No Known Allergies Allergy Verified 09/14/17 00:53 - Medications Medications: Current Medications Cefepime HCl 2 gm/ Sodium (Chloride) 100 mls @ 100 mls/hr IVPB STAT STA PRN Reason: Protocol Stop: 09/14/17 00:18 Physical Exam - Constitutional Appears: Non-toxic, No Acute Distress - Head Exam Head Exam: ATRAUMATIC - Eye Exam Eye Exam: EOMI. absent: Scleral icterus - ENT Exam ENT Exam: Mucous Membranes Moist - Respiratory Exam Respiratory Exam: NORMAL BREATHING PATTERN. absent: Accessory Muscle Use, Respiratory Distress - Cardiovascular Exam Cardiovascular Exam: Tachycardia, +S1, +S2. absent: Bradycardia - GI/Abdominal Exam GI & Abdominal Exam: Soft, Tenderness (tenderness localized in RLQ). absent: Firm, Guarding, Rebound, Rigid Additional comments: Negative rovsings, negative psoas - Back Exam Back exam: NORMAL INSPECTION. absent: CVA tenderness (L) - Neurological Exam Neurological exam: Alert, Oriented x3 - Skin Skin Exam: Intact, Warm Results - Vital Signs Recent Vital Signs: Last Vital Signs Temp 99.4 F 09/13/17 19:13 Pulse 110 H 09/13/17 23:48 Resp 20 09/13/17 23:48 BP 109/72 09/13/17 23:48 Pulse Ox 100 09/13/17 23:48 - Labs Result Diagrams: 09/14/17 06:30 09/13/17 20:48 Labs: Laboratory Results - last 24 hr 09/13/17 09/13/17 09/13/17 20:48 20:48 21:03 WBC 14.9 H D RBC 4.83 Hgb 13.0 Hct 39.2 MCV 81.1 MCH 26.9 L MCHC 33.2 RDW 15.2 H Plt Count 341 D MPV 8.1 Neut % (Auto) 78.4 H Lymph % (Auto) 14.3 L [place] % (Auto) 6.9 Eos % (Auto) 0.1 Baso % (Auto) 0.3 Neut # (Auto) 11.7 H Lymph # (Auto) 2.1 Slope # (Auto) 1.0 H Eos # (Auto) 0.0 Baso # (Auto) 0.0 pO2 38 VBG pH 7.42 VBG pCO2 40 VBG HCO3 25.3 VBG Total CO2 27.1 VBG O2 Sat (Calc) 76.5 H VBG Base Excess 1.3 VBG Potassium 3.8 Glucose 120 H Lactate 1.1 FiO2 21.0 Sodium 137 135.0 Potassium 3.8 Chloride 99 102.0 Carbon Dioxide 24 Anion Gap 18 BUN 10 Creatinine 0.6 L Est GFR ( Amer) > 60 Est GFR (Non-Af Amer) > 60 Random Glucose 113 H Calcium 9.0 Total Bilirubin 1.7 H AST 18 ALT 36 Alkaline Phosphatase 96 Total Protein 8.1 Albumin 4.0 Globulin 4.1 H Albumin/Globulin Ratio 1.0 Venous Blood Potassium 3.8 Assessment & Plan - Assessment and Plan (Free Text) Assessment: 42M w/ hx of perforated appendicitis w/ no previous surgical intervention s/p IR drain placement and removal admitted Intra-abdominal abscess Plan: - CLD - IV Abx- recommend cefepime; previous culture sensitivity - IVF - recommend IR consult for possible drain placement - no acute surgical intervention indicated at this time - d/w Dr. Chan surgical attending [facility] PGY1 <Austyn Chan - Last Filed: 09/14/17 13:11> Meds - Medications Medications: Current Medications Acetaminophen (Tylenol 325mg Tab) 650 mg PO Q4 PRN PRN Reason: Fever >100.4 F Last Admin: 09/14/17 01:05 Dose: 650 mg Cefepime HCl 2 gm/ Sodium (Chloride) 100 mls @ 100 mls/hr IVPB Q12 SHANKAR PRN Reason: Protocol Last Admin: 09/14/17 10:00 Dose: 100 mls/hr Sodium Chloride (Sodium Chloride 0.9%) 1,000 mls @ 100 mls/hr IV .Q10H SHANKAR Stop: 09/15/17 03:28 Last Admin: 09/14/17 04:18 Dose: 100 mls/hr Ketorolac Tromethamine (Toradol) 15 mg IVP Q6 PRN PRN Reason: Pain, moderate (4-7) Ketorolac Tromethamine (Toradol) 30 mg IVP Q6 PRN PRN Reason: Pain, severe (8-10) Ondansetron HCl (Zofran Odt) 4 mg PO Q6H PRN PRN Reason: Nausea/Vomiting Results - Vital Signs Recent Vital Signs: Last Vital Signs Temp 100.1 F H 09/14/17 08:28 Pulse 95 H 09/14/17 08:28 Resp 20 09/14/17 08:28 BP 105/67 09/14/17 08:28 Pulse Ox 96 09/14/17 08:28 - Labs Result Diagrams: 09/14/17 06:30 09/13/17 20:48 Labs: Laboratory Results - last 24 hr 09/13/17 09/13/17 09/13/17 20:48 20:48 21:03 WBC 14.9 H D RBC 4.83 Hgb 13.0 Hct 39.2 MCV 81.1 MCH 26.9 L MCHC 33.2 RDW 15.2 H Plt Count 341 D MPV 8.1 Neut % (Auto) 78.4 H Lymph % (Auto) 14.3 L [place] % (Auto) 6.9 Eos % (Auto) 0.1 Baso % (Auto) 0.3 Neut # (Auto) 11.7 H Lymph # (Auto) 2.1 Sl[place] # (Auto) 1.0 H Eos # (Auto) 0.0 Baso # (Auto) 0.0 pO2 38 VBG pH 7.42 VBG pCO2 40 VBG HCO3 25.3 VBG Total CO2 27.1 VBG O2 Sat (Calc) 76.5 H VBG Base Excess 1.3 VBG Potassium 3.8 Glucose 120 H Lactate 1.1 FiO2 21.0 Sodium 137 135.0 Potassium 3.8 Chloride 99 102.0 Carbon Dioxide 24 Anion Gap 18 BUN 10 Creatinine 0.6 L Est GFR ( Amer) > 60 Est GFR (Non-Af Amer) > 60 Random Glucose 113 H Calcium 9.0 Total Bilirubin 1.7 H AST 18 ALT 36 Alkaline Phosphatase 96 Total Protein 8.1 Albumin 4.0 Globulin 4.1 H Albumin/Globulin Ratio 1.0 Venous Blood Potassium 3.8 09/14/17 06:30 WBC 14.7 H RBC 4.19 L Hgb 11.3 L Hct 34.5 L MCV 82.3 MCH 26.9 L MCHC 32.7 L RDW 15.4 H Plt Count 289 MPV 8.2 Neut % (Auto) 77.0 H Lymph % (Auto) 13.9 L [place] % (Auto) 8.7 Eos % (Auto) 0.3 Baso % (Auto) 0.1 Neut # (Auto) 11.3 H Lymph # (Auto) 2.0 Sl[place] # (Auto) 1.3 H Eos # (Auto) 0.0 Baso # (Auto) 0.0 pO2 VBG pH VBG pCO2 VBG HCO3 VBG Total CO2 VBG O2 Sat (Calc) VBG Base Excess VBG Potassium Glucose Lactate FiO2 Sodium Potassium Chloride Carbon Dioxide Anion Gap BUN Creatinine Est GFR ( Amer) Est GFR (Non-Af Amer) Random Glucose Calcium Total Bilirubin AST ALT Alkaline Phosphatase Total Protein Albumin Globulin Albumin/Globulin Ratio Venous Blood Potassium Assessment & Plan - Assessment and Plan (Free Text) Plan: as above, will need drainage
[2017-09-14] MEDS: Sodium Chloride 0.9% 1,000 ML IV SCH ×2 (04:18→13:23)
[2017-09-14 07:50] LABS: BASO % 0.1 % (0.0-2.0); EOS % 0.3 % (0.0-4.0); HEMOGLOBIN 11.3 g/dL (12.0-18.0); LYMPH % 13.9 % (20.0-40.0); MEAN CELL VOLUME 82.3 fl (80.0-94.0); MEAN CORPUSCULAR HEMOGLOBIN 26.9 pg (27.0-31.0); MEAN CORPUSCULAR HGB CONC 32.7 g/dL (33.0-37.0); MEAN PLATELET VOLUME 8.2 fl (7.2-11.7); MONO # 1.3 K/uL (0.0-0.8); MONO % 8.7 % (0.0-10.0); NEUT # 11.3 K/uL (1.8-7.0); RBC 4.19 Mil/uL (4.40-5.90); RED CELL DISTRIBUTION WIDTH 15.4 % (11.5-14.5); WHITE BLOOD COUNT 14.7 K/uL (4.8-10.8)
--- NOTE | 2017-09-14 08:59 | PCM.IRP ---
Chief Complaint: IR consulted to evaluate for drainage of persistent/recurrent periappendiceal abscess. CT images reviewed. Appendiceal stump remains inflamed with reactive cecal and terminal ileal thickening. Small area of fluid/phlegmon containing an appendicolith is reidentified at the site of previous abscess/ pigtail catheter placement, smaller in comparison to the prior study. The wall of the collection does not appear well defined suggesting that there is a phelgmonous component and the collection may have reaccumulated as opposed to persisting from incomplete drainage. Percutaneous drainage would be better attempted when the collection is more organized. Given the presence of the appendicolith (which was mentioned on all prior imaging), the patient requires surgery at some point for definitive management, as this will indefinitely remain a nidus for infection. Objective - Vital Signs/Intake and Output Vital Signs (last 24 hours): Vital Signs - 24 hr 09/13/17 09/13/17 09/13/17 19:13 23:46 23:48 Temperature 99.4 F Pulse Rate 125 H 110 H Respiratory 18 20 Rate Blood Pressure 117/70 109/72 O2 Sat by Pulse 99 99 100 Oximetry 09/14/17 09/14/17 09/14/17 00:50 00:59 01:05 Temperature 100.0 F H 100.0 F H Pulse Rate 110 H Respiratory 20 Rate Blood Pressure 109/72 O2 Sat by Pulse Oximetry 09/14/17 09/14/17 09/14/17 01:26 01:55 02:05 Temperature 99.7 F H 99.2 F 99.2 F Pulse Rate 101 H 103 H Respiratory 18 Rate Blood Pressure 115/74 O2 Sat by Pulse 96 Oximetry 09/14/17 08:28 Temperature 100.1 F H Pulse Rate 95 H Respiratory 20 Rate Blood Pressure 105/67 O2 Sat by Pulse 96 Oximetry Intake and Output (last 12 hours): Intake & Output 09/13/17 09/14/17 09/14/17 18:59 06:59 18:59 Weight 173 lb - Medications Medications: Current Medications Acetaminophen (Tylenol 325mg Tab) 650 mg PO Q4 PRN PRN Reason: Fever >100.4 F Last Admin: 09/14/17 01:05 Dose: 650 mg Cefepime HCl 2 gm/ Sodium (Chloride) 100 mls @ 100 mls/hr IVPB Q12 SHANKAR PRN Reason: Protocol Sodium Chloride (Sodium Chloride 0.9%) 1,000 mls @ 100 mls/hr IV .Q10H SHANKAR Stop: 09/15/17 03:28 Last Admin: 09/14/17 04:18 Dose: 100 mls/hr Morphine Sulfate (Morphine) 2 mg IVP Q4 PRN PRN Reason: Pain, moderate (4-7) Last Admin: 09/14/17 00:51 Dose: 2 mg Ondansetron HCl (Zofran Odt) 4 mg PO Q6H PRN PRN Reason: Nausea/Vomiting - Labs Labs (last 24 hours): Laboratory Results - last 24 hr 09/13/17 09/13/17 09/13/17 20:48 20:48 21:03 WBC 14.9 H D RBC 4.83 Hgb 13.0 Hct 39.2 MCV 81.1 MCH 26.9 L MCHC 33.2 RDW 15.2 H Plt Count 341 D MPV 8.1 Neut % (Auto) 78.4 H Lymph % (Auto) 14.3 L Mcminn % (Auto) 6.9 Eos % (Auto) 0.1 Baso % (Auto) 0.3 Neut # (Auto) 11.7 H Lymph # (Auto) 2.1 [place]n # (Auto) 1.0 H Eos # (Auto) 0.0 Baso # (Auto) 0.0 pO2 38 VBG pH 7.42 VBG pCO2 40 VBG HCO3 25.3 VBG Total CO2 27.1 VBG O2 Sat (Calc) 76.5 H VBG Base Excess 1.3 VBG Potassium 3.8 Glucose 120 H Lactate 1.1 FiO2 21.0 Sodium 137 135.0 Potassium 3.8 Chloride 99 102.0 Carbon Dioxide 24 Anion Gap 18 BUN 10 Creatinine 0.6 L Est GFR ( Amer) > 60 Est GFR (Non-Af Amer) > 60 Random Glucose 113 H Calcium 9.0 Total Bilirubin 1.7 H AST 18 ALT 36 Alkaline Phosphatase 96 Total Protein 8.1 Albumin 4.0 Globulin 4.1 H Albumin/Globulin Ratio 1.0 Venous Blood Potassium 3.8 09/14/17 06:30 WBC 14.7 H RBC 4.19 L Hgb 11.3 L Hct 34.5 L MCV 82.3 MCH 26.9 L MCHC 32.7 L RDW 15.4 H Plt Count 289 MPV 8.2 Neut % (Auto) 77.0 H Lymph % (Auto) 13.9 L [place] % (Auto) 8.7 Eos % (Auto) 0.3 Baso % (Auto) 0.1 Neut # (Auto) 11.3 H Lymph # (Auto) 2.0 [place]minn # (Auto) 1.3 H Eos # (Auto) 0.0 Baso # (Auto) 0.0 pO2 VBG pH VBG pCO2 VBG HCO3 VBG Total CO2 VBG O2 Sat (Calc) VBG Base Excess VBG Potassium Glucose Lactate FiO2 Sodium Potassium Chloride Carbon Dioxide Anion Gap BUN Creatinine Est GFR ( Amer) Est GFR (Non-Af Amer) Random Glucose Calcium Total Bilirubin AST ALT Alkaline Phosphatase Total Protein Albumin Globulin Albumin/Globulin Ratio Venous Blood Potassium
--- NOTE | 2017-09-14 09:00 | RAD ---
HISTORY: cough fever COMPARISON: No prior. TECHNIQUE: Chest PA and lateral FINDINGS: LUNGS: No active pulmonary disease. PLEURA: No significant pleural effusion identified. No pneumothorax apparent. CARDIOVASCULAR: Normal. OSSEOUS STRUCTURES: No significant abnormalities. VISUALIZED UPPER ABDOMEN: Normal. OTHER FINDINGS: None. IMPRESSION: No active disease.
--- NOTE | 2017-09-14 09:18 | CT ---
PROCEDURE: CT Abdomen and Pelvis with contrast HISTORY: abdominal pain s/p appendectomy 2 weeks ago COMPARISON: None. TECHNIQUE: Contrast dose: 90 mL Omnipaque 300 Radiation dose: Total exam DLP = 636.5 mGy-cm. This CT exam was performed using one or more of the following dose reduction techniques: Automated exposure control, adjustment of the mA and/or kV according to patient size, and/or use of iterative reconstruction technique. FINDINGS: LOWER THORAX: Bilateral lower lobe atelectasis/ scarring. No focal consolidation or pleural effusion. Heart size normal. LIVER: Unremarkable. No gross lesion or ductal dilatation. GALLBLADDER AND BILE DUCTS: Unremarkable. PANCREAS: Unremarkable. No gross lesion or ductal dilatation. SPLEEN: Unremarkable. ADRENALS: Unremarkable. No mass. KIDNEYS AND URETERS: Unremarkable. No hydronephrosis. No solid mass. VASCULATURE: Unremarkable. No aortic aneurysm. BOWEL: Cecal and terminal ileal thickening. No obstruction. APPENDIX: Persistent inflammation of the appendiceal stump with 3.9 x 2.4 cm periappendiceal phlegmonous area of fluid containing multiple small appendicoliths reidentified. Previously placed pigtail drainage catheter is no longer present. PERITONEUM: Unremarkable. No free fluid. No free air. LYMPH NODES: Few prominent pericecal lymph nodes. BLADDER: Unremarkable. REPRODUCTIVE: Unremarkable. BONES: Stable sclerotic focus in the left acetabulum. No acute fracture. OTHER FINDINGS: None. IMPRESSION: Interval removal of previously placed right lower quadrant pigtail drainage catheter with persistent inflammation of the periappendiceal stump and smaller than before 3.9 x 2.4 cm periappendiceal phlegmonous area of fluid again noted to contain multiple small appendicoliths. The periappendiceal collection does not a completely defined wall suggesting reaccumulation as opposed to persistent collection from incomplete drainage. Appendicoliths can serve as a nidus for continued/recurrent infection if not removed. Cecal and terminal ileal wall thickening is likely reactive to the appendiceal process. Please note, although the history states the patient had an appendectomy, there is no documentation in the electronic medical record that shows the patient had his appendix surgically removed unless this was done at an outside institution.
[2017-09-14] MEDS: Cefepime 2 GM in Sodium Chloride 0.9% 100 ML IVPB SCH ×2 (10:00→21:27)
[2017-09-15] MEDS: Sodium Chloride 0.9% 1,000 ML IV SCH
[2017-09-15 06:56] LABS: HEMOGLOBIN 11.6 g/dL (12.0-18.0); MEAN CORPUSCULAR HEMOGLOBIN 26.7 pg (27.0-31.0); RBC 4.33 Mil/uL (4.40-5.90); RED CELL DISTRIBUTION WIDTH 14.9 % (11.5-14.5); WHITE BLOOD COUNT 13.7 K/uL (4.8-10.8)
--- NOTE | 2017-09-15 07:05 | CP.PCM.PN ---
Subjective - Date & Time of Evaluation Date of Evaluation: 09/15/17 Time of Evaluation: 09:00 - Subjective Subjective: Patient seen and examined bedside. Feeling better. Denies any abdominal pain , tolerating Po intake. Nop acute issues overnight. Tmax 102 6 last 24 hours Objective - Vital Signs/Intake and Output Vital Signs (last 24 hours): Temp Pulse Resp BP Pulse Ox 98.8 F 100 H 20 107/63 97 09/15/17 00:38 09/15/17 00:38 09/15/17 00:38 09/15/17 00:38 09/15/17 00:38 - Medications Medications: Current Medications Acetaminophen (Tylenol 325mg Tab) 650 mg PO Q4 PRN PRN Reason: Fever >100.4 F Last Admin: 09/14/17 23:32 Dose: 650 mg Cefepime HCl 2 gm/ Sodium (Chloride) 100 mls @ 100 mls/hr IVPB Q12 SHANKAR PRN Reason: Protocol Last Admin: 09/14/17 21:27 Dose: 100 mls/hr Ketorolac Tromethamine (Toradol) 15 mg IVP Q6 PRN PRN Reason: Pain, moderate (4-7) Ketorolac Tromethamine (Toradol) 30 mg IVP Q6 PRN PRN Reason: Pain, severe (8-10) Last Admin: 09/14/17 22:17 Dose: 30 mg Ondansetron HCl (Zofran Odt) 4 mg PO Q6H PRN PRN Reason: Nausea/Vomiting - Labs Labs: 09/15/17 05:20 09/13/17 20:48 - Constitutional Appears: Non-toxic, No Acute Distress - Head Exam Head Exam: ATRAUMATIC, NORMAL INSPECTION, NORMOCEPHALIC - Eye Exam Eye Exam: EOMI, Normal appearance, PERRL Pupil Exam: NORMAL ACCOMODATION - ENT Exam ENT Exam: Mucous Membranes Moist, Normal Exam - Neck Exam Neck Exam: Full ROM, Normal Inspection - Respiratory Exam Respiratory Exam: Clear to Ausculation Bilateral, NORMAL BREATHING PATTERN. absent: Rales, Rhonchi, Wheezes - Cardiovascular Exam Cardiovascular Exam: REGULAR RHYTHM, RRR, +S1, +S2. absent: JVD - GI/Abdominal Exam GI & Abdominal Exam: Soft, Normal Bowel Sounds. absent: Distended, Guarding, Tenderness, Rebound - Rectal Exam Rectal Exam: Deferred - Extremities Exam Extremities Exam: Full ROM, Normal Capillary Refill, Normal Inspection. absent : Calf Tenderness, Pedal Edema - Back Exam Back Exam: NORMAL INSPECTION - Neurological Exam Neurological Exam: Alert, Awake, CN II-XII Intact, Normal Gait, Oriented x3 - Psychiatric Exam Psychiatric exam: Normal Affect, Normal Mood - Skin Skin Exam: Dry, Intact, Normal Color, Warm Assessment and Plan - Assessment and Plan (Free Text) Assessment: 42 years old male was last admitted on 08/22/17 and dx with Perforated Appendicitis and Periappendicular abscess with IR drainage and Pigtail placement on 08/27/17, discharged on 08/19/17 and the Drain was removed on . He now came with intermittent cramping pain across the periumbilical region for [address] fever [address] abdomen showed : smaller than before 3.9 x 2.4 cm periappendiceal phlegmonous area of fluid again noted to contain multiple small appendicoliths Patient admitted to med/surg and started on Maxipime , IR and surgery consulted 1.Periappendicular abscess with appendicolith Patient has history of recent acute appendicitis managed with pig tail placement by IR and abscess drainage and antibiotics CT abdomen showed smaller than before abscess 3.9 cmx 2.4 cm and appendicolith last cultures were positive for E.Coli sensitive to Cefepime. Started on Cefepime 1 g Iv Q12 IR and surgery consulted No surgical intervention at thsi time as per surgery As per IR abscess to small to drain Continue IV antibiotics, pain management Promote ambulation Follow up cultures Tylenol PRN for fever 2. DVT prophylaxis SCD
[2017-09-15 07:20] LABS: BLOOD UREA NITROGEN 10 mg/dl (9-20); CALCIUM 8.7 mg/dL (8.4-10.2); GFR AFRICAN-AMERICAN > 60; GFR NON-AFRICAN AMERICAN > 60
--- NOTE | 2017-09-15 08:25 | CP.PCM.PN ---
Subjective - Date & Time of Evaluation Date of Evaluation: 09/15/17 Time of Evaluation: 06:50 - Subjective Subjective: Surgery- Dr. Chan Patient seen and examined at bedside this AM. No acute events overnight. A. febrile. +OOB. ABD pain improving. Denies nausea, vomiting, diarrhea Objective - Vital Signs/Intake and Output Vital Signs (last 24 hours): Temp Pulse Resp BP Pulse Ox 98.8 F 100 H 20 107/63 97 09/15/17 00:38 09/15/17 00:38 09/15/17 00:38 09/15/17 00:38 09/15/17 00:38 - Medications Medications: Current Medications Acetaminophen (Tylenol 325mg Tab) 650 mg PO Q4 PRN PRN Reason: Fever >100.4 F Last Admin: 09/14/17 23:32 Dose: 650 mg Cefepime HCl 2 gm/ Sodium (Chloride) 100 mls @ 100 mls/hr IVPB Q12 SHANKAR PRN Reason: Protocol Last Admin: 09/14/17 21:27 Dose: 100 mls/hr Ketorolac Tromethamine (Toradol) 15 mg IVP Q6 PRN PRN Reason: Pain, moderate (4-7) Ketorolac Tromethamine (Toradol) 30 mg IVP Q6 PRN PRN Reason: Pain, severe (8-10) Last Admin: 09/14/17 22:17 Dose: 30 mg Ondansetron HCl (Zofran Odt) 4 mg PO Q6H PRN PRN Reason: Nausea/Vomiting - Labs Labs: 09/15/17 05:20 09/15/17 05:20 - Constitutional Appears: Non-toxic, No Acute Distress - Head Exam Head Exam: ATRAUMATIC - Eye Exam Eye Exam: EOMI. absent: Scleral icterus - ENT Exam ENT Exam: Mucous Membranes Moist - Respiratory Exam Respiratory Exam: absent: Accessory Muscle Use, Respiratory Distress - Cardiovascular Exam Cardiovascular Exam: +S1, +S2. absent: Bradycardia, Tachycardia - GI/Abdominal Exam GI & Abdominal Exam: Soft, Tenderness (tender to palpation in RLQ). absent: Distended, Firm, Guarding, Rigid - Extremities Exam Extremities Exam: Normal Inspection. absent: Calf Tenderness - Neurological Exam Neurological Exam: Alert, Awake, Oriented x3 - Psychiatric Exam Psychiatric exam: Normal Affect - Skin Skin Exam: Intact, Warm Assessment and Plan - Assessment and Plan (Free Text) Assessment: 42M w/ hx of perforated appendicitis w/ no previous surgical intervention s/p IR drain placement and removal admitted Intra-abdominal abscess Plan: - Analgesia PRN - c/w Abx- cefepime - IVF - recommend IR consult for possible drain placement * IR recs; plan for drainage when area is more defined - no acute surgical intervention indicated at this time - d[facility]
[2017-09-15] MEDS: Cefepime 2 GM in Sodium Chloride 0.9% 100 ML IVPB SCH ×2 (10:00→20:45)
[2017-09-16] MEDS ORDERED: Fluconazole IV 200mg/100 ml NS 100 ML IVPB STA (08:51)
[2017-09-16] MEDS: Cefepime 2 GM in Sodium Chloride 0.9% 100 ML IVPB SCH (09:21)
--- NOTE | 2017-09-16 10:35 | CP.PCM.CON ---
History of Present Illness - History of Present Illness History of Present Illness: Infectious Disease Consultation- Asked to see this patient at the request of hospitalist for fever. HPI- Patient is a 42 year old male with NO PMH who was initially admitted last month for abdominal pain and was found to have perforated appendicitis complicated by intra-abdominal pelvic abscess and had IR drain placement and was on IV abx as per another ID physician that admissiona nd was d/c home on oral antibiotics for a week but pt. states again about a week ago he developed abdominal discomfort and fevers and hence came back to hospital to be evaluated. No surgical intervention was performed last admission as per med records. Repeat CT in the ER on this admission shows no radiological signs of repeat appendicitis, however intra-abdominal abscess is present. patient denies any nausea or vomiting or diarrhea but states has no appetite. I'm asked to evaluate because pt. continues to be febrile despite being on IV antibiotics. PMH: stated above PSH: denies ALL: NKDA SocialHx: denies tobacco, denies recreational drug use. ETOH socially FH: non-contributory Review of Systems - Review of Systems Review of Systems: ROS- + fever, denies any SOSA, denies any cough, denies any sob, denies any chest pain , + abdominal pain on the right side, denies any diarrhea, denies any dysurea Past Patient History - Infectious Disease Hx of Infectious Diseases: None - Past Medical History & Family History Past Medical History?: No - Past Social History Smoking Status: Never Smoked Alcohol: None Drugs: Denies - CARDIAC Hx Cardiac Disorders: No - PULMONARY Hx Respiratory Disorders: No - NEUROLOGICAL Hx Neurological Disorder: No - HEENT Hx HEENT Problems: No - RENAL Hx Chronic Kidney Disease: No - ENDOCRINE/METABOLIC Hx Endocrine Disorders: No - HEMATOLOGICAL/ONCOLOGICAL Hx Blood Disorders: No - INTEGUMENTARY Hx Dermatological Problems: No - MUSCULOSKELETAL/RHEUMATOLOGICAL Hx Musculoskeletal Disorders: No Hx Falls: No - GASTROINTESTINAL Hx Gastrointestinal Disorders: No - GENITOURINARY/GYNECOLOGICAL Hx Genitourinary Disorders: No - PSYCHIATRIC Hx Psychophysiologic Disorder: No Hx Substance Use: No - SURGICAL HISTORY Hx Appendectomy: Yes - ANESTHESIA Hx Anesthesia: No Meds Allergies/Adverse Reactions: Allergies Allergy/AdvReac Type Severity Reaction Status Date / Time No Known Allergies Allergy Verified 09/14/17 00:53 - Medications Medications: Current Medications Acetaminophen (Tylenol 325mg Tab) 650 mg PO Q4 PRN PRN Reason: Fever >100.4 F Last Admin: 09/16/17 08:15 Dose: 650 mg Cefepime HCl 2 gm/ Sodium (Chloride) 100 mls @ 100 mls/hr IVPB Q12 SHANKAR PRN Reason: Protocol Last Admin: 09/16/17 09:21 Dose: 100 mls/hr Metronidazole (Flagyl 500mg/100ml Ns) 100 mls @ 100 mls/hr IVPB Q8 SHANKAR PRN Reason: Protocol Fluconazole (Diflucan Iv 100 Mg/50 Ml Ns) 50 mls @ 50 mls/hr IVPB DAILY SHANKAR PRN Reason: Protocol Ketorolac Tromethamine (Toradol) 15 mg IVP Q6 PRN PRN Reason: Pain, moderate (4-7) Ketorolac Tromethamine (Toradol) 30 mg IVP Q6 PRN PRN Reason: Pain, severe (8-10) Last Admin: 09/14/17 22:17 Dose: 30 mg Ondansetron HCl (Zofran Odt) 4 mg PO Q6H PRN PRN Reason: Nausea/Vomiting Physical Exam - Constitutional Appears: No Acute Distress - Head Exam Head Exam: ATRAUMATIC - Eye Exam Eye Exam: EOMI, PERRL - ENT Exam ENT Exam: Normal Oropharynx - Respiratory Exam Respiratory Exam: Clear to Auscultation Bilateral, NORMAL BREATHING PATTERN - Cardiovascular Exam Cardiovascular Exam: RRR, +S1, +S2 - GI/Abdominal Exam GI & Abdominal Exam: Soft Additional comments: Bowel sounds present no distention Minimal tenderness in Right lower quadrant No guarding, no rebound - Extremities Exam Extremities exam: Positive for: normal inspection - Neurological Exam Neurological exam: Alert, Oriented x3 Results - Vital Signs Recent Vital Signs: Last Vital Signs Temp 101.4 F H 09/16/17 08:15 Pulse 99 H 09/16/17 07:59 Resp 19 09/16/17 07:59 BP 113/73 09/16/17 07:59 Pulse Ox 95 09/16/17 07:59 - Labs Result Diagrams: 09/15/17 05:20 09/15/17 05:20 Labs: Laboratory Results - last 72 hr 09/13/17 09/13/17 09/13/17 20:48 20:48 21:03 WBC 14.9 H D RBC 4.83 Hgb 13.0 Hct 39.2 MCV 81.1 MCH 26.9 L MCHC 33.2 RDW 15.2 H Plt Count 341 D MPV 8.1 Neut % (Auto) 78.4 H Lymph % (Auto) 14.3 L [place] % (Auto) 6.9 Eos % (Auto) 0.1 Baso % (Auto) 0.3 Neut # (Auto) 11.7 H Lymph # (Auto) 2.1 [place] # (Auto) 1.0 H Eos # (Auto) 0.0 Baso # (Auto) 0.0 pO2 38 VBG pH 7.42 VBG pCO2 40 VBG HCO3 25.3 VBG Total CO2 27.1 VBG O2 Sat (Calc) 76.5 H VBG Base Excess 1.3 VBG Potassium 3.8 Glucose 120 H Lactate 1.1 FiO2 21.0 Sodium 137 135.0 Potassium 3.8 Chloride 99 102.0 Carbon Dioxide 24 Anion Gap 18 BUN 10 Creatinine 0.6 L Est GFR ( Amer) > 60 Est GFR (Non-Af Amer) > 60 Random Glucose 113 H Calcium 9.0 Total Bilirubin 1.7 H AST 18 ALT 36 Alkaline Phosphatase 96 Total Protein 8.1 Albumin 4.0 Globulin 4.1 H Albumin/Globulin Ratio 1.0 Venous Blood Potassium 3.8 09/14/17 09/15/17 09/15/17 06:30 05:20 05:20 WBC 14.7 H 13.7 H RBC 4.19 L 4.33 L Hgb 11.3 L 11.6 L Hct 34.5 L 35.1 MCV 82.3 81.0 MCH 26.9 L 26.7 L MCHC 32.7 L 33.0 RDW 15.4 H 14.9 H Plt Count 289 259 MPV 8.2 Neut % (Auto) 77.0 H Lymph % (Auto) 13.9 L [place] % (Auto) 8.7 Eos % (Auto) 0.3 Baso % (Auto) 0.1 Neut # (Auto) 11.3 H Lymph # (Auto) 2.0 [place] # (Auto) 1.3 H Eos # (Auto) 0.0 Baso # (Auto) 0.0 pO2 VBG pH VBG pCO2 VBG HCO3 VBG Total CO2 VBG O2 Sat (Calc) VBG Base Excess VBG Potassium Glucose Lactate FiO2 Sodium 138 Potassium 4.0 Chloride 102 Carbon Dioxide 24 Anion Gap 16 BUN 10 Creatinine 0.7 L Est GFR ( Amer) > 60 Est GFR (Non-Af Amer) > 60 Random Glucose 117 H Calcium 8.7 Total Bilirubin AST ALT Alkaline Phosphatase Total Protein Albumin Globulin Albumin/Globulin Ratio Venous Blood Potassium Microbiology 09/13/17 21:00 Blood Blood Culture - Preliminary NO GROWTH AFTER 48 HOURS 09/13/17 20:36 Blood Blood Culture - Preliminary NO GROWTH AFTER 48 HOURS Microbiology 08/27/17 13:25 Abscess - Abdominal Cavity Gram Stain - Final 08/27/17 13:25 Abscess - Abdominal Cavity Wound Culture - Final Escherichia Coli 08/24/17 06:40 Urine Urine Culture - Final No Growth (<1,000 CFU/ML) 08/23/17 15:39 Blood-Venous Blood Culture - Final 08/23/17 15:39 Blood-Venous Gram Stain - Final NO GROWTH AFTER 5 DAYS TEST NOT PERFORMED 08/23/17 15:29 Blood-Venous Blood Culture - Final 08/23/17 15:29 Blood-Venous Gram Stain - Final NO GROWTH AFTER 5 DAYS TEST NOT PERFORMED 08/21/17 23:50 Blood-Venous Blood Culture - Final 08/21/17 23:50 Blood-Venous Gram Stain - Final NO GROWTH AFTER 5 DAYS TEST NOT PERFORMED Accession No. : [id number] Patient Name / ID : CAMILLE CAMPOS G / [id number] Exam Date : 09/13/2017 20:50:35 ( Approved ) Study Comment : Sex / Age : M / 42Y Creator : Taqueria Oquendo MD Dictator : Taqueria Oquendo MD Prepress Specialist : Draughtsman : Taqueria Oquendo MD Approver2 : Report Date : 09/14/2017 08:41:00 My Comment : HISTORY: cough fever COMPARISON: No prior. TECHNIQUE: Chest PA and lateral FINDINGS: LUNGS: No active pulmonary disease. PLEURA: No significant pleural effusion identified. No pneumothorax apparent. CARDIOVASCULAR: Normal. OSSEOUS STRUCTURES: No significant abnormalities. VISUALIZED UPPER ABDOMEN: Normal. OTHER FINDINGS: None. IMPRESSION: No active disease. Assessment & Plan (1) Intra-abdominal abscess Status: Acute (2) Abdominal pain Status: Acute (3) Fever Status: Acute - Assessment and Plan (Free Text) Assessment: A/P- 42 year old male with recent d/c from [facility] for ruptured appendicitis with tiffanie- appendeceal abscess s/p IR drainage of the abscess who now returns with abdominal pain, fever and found to have re-accumulation of the intra-abdominal abscess. would advise to check repeat CT to see whether the abscess or abscess collections still remain in place and if so will need either drainage VIA IR or surgical drainage as antibiotics alone would not be sufficient to treat remaining abscess. plan- check 2 more blood cx. check repeat ABD ct. in light of tlast admission E.Coli cx advise to change antibiotics to meropenem . d/c cefepime. continue with IV flagyl as well. monitor wbc and temp closely. All above d/w patient and he verbalizes full understanding of all above. Thank you for allowing me to take part in the care of this patient. also d/w .
[2017-09-16] MEDS: metroNIDAZOLE 500mg/100ml NS 100 ML IVPB SCH ×2 (11:15→16:33)
--- NOTE | 2017-09-16 11:45 | CP.PCM.PN ---
<RennyJose londono - Last Filed: 09/16/17 11:43> Subjective - Date & Time of Evaluation Date of Evaluation: 09/16/17 Time of Evaluation: 07:25 - Subjective Subjective: Surgery Progress note. Dr. Barragan Pt seen and examined at bedside. No acute events overnight. Febrile this morning : Tmax: 101.4F. Still reports some abdominal pain, mildly improved. No N/V/D. No New complaints. Objective - Vital Signs/Intake and Output Vital Signs (last 24 hours): Temp Pulse Resp BP Pulse Ox 101.4 F H 99 H 19 113/73 95 09/16/17 08:15 09/16/17 07:59 09/16/17 07:59 09/16/17 07:59 09/16/17 07:59 - Medications Medications: Current Medications Acetaminophen (Tylenol 325mg Tab) 650 mg PO Q4 PRN PRN Reason: Fever >100.4 F Last Admin: 09/16/17 08:15 Dose: 650 mg Cefepime HCl 2 gm/ Sodium (Chloride) 100 mls @ 100 mls/hr IVPB Q12 SHANKAR PRN Reason: Protocol Last Admin: 09/16/17 09:21 Dose: 100 mls/hr Metronidazole (Flagyl 500mg/100ml Ns) 100 mls @ 100 mls/hr IVPB Q8 SHANKAR PRN Reason: Protocol Last Admin: 09/16/17 11:15 Dose: 100 mls/hr Fluconazole (Diflucan Iv 100 Mg/50 Ml Ns) 50 mls @ 50 mls/hr IVPB DAILY SHANKAR PRN Reason: Protocol Ketorolac Tromethamine (Toradol) 15 mg IVP Q6 PRN PRN Reason: Pain, moderate (4-7) Ketorolac Tromethamine (Toradol) 30 mg IVP Q6 PRN PRN Reason: Pain, severe (8-10) Last Admin: 09/14/17 22:17 Dose: 30 mg Ondansetron HCl (Zofran Odt) 4 mg PO Q6H PRN PRN Reason: Nausea/Vomiting - Labs Labs: 09/15/17 05:20 09/15/17 05:20 - Constitutional Appears: Non-toxic, No Acute Distress - Head Exam Head Exam: ATRAUMATIC, NORMAL INSPECTION, NORMOCEPHALIC - Eye Exam Eye Exam: EOMI, Normal appearance - ENT Exam ENT Exam: Mucous Membranes Moist - Respiratory Exam Respiratory Exam: NORMAL BREATHING PATTERN. absent: Accessory Muscle Use, Respiratory Distress - GI/Abdominal Exam GI & Abdominal Exam: Soft. absent: Distended, Firm, Guarding, Rigid, Rebound Additional comments: Mild tenderness to palpation RLQ - Extremities Exam Extremities Exam: Normal Inspection. absent: Calf Tenderness - Neurological Exam Neurological Exam: Alert, Awake, Oriented x3 - Skin Skin Exam: Dry, Intact, Normal Color, Warm Assessment and Plan - Assessment and Plan (Free Text) Assessment: 42yo M with previous perforated appendicitis w/ no previous surgical intervention s/p IR drain placement and removal admitted now with Intra- abdominal abscess Plan: - Analgesia PRN - Continue Abx as per ID - IVF - F/u IR consult Will likely need repeat CT scan in 1 week to re-eval Abscess prior to IR intervention - no acute surgical intervention indicated at this present time Further recs as per Dr. Yung Lawson PGY1 Surgery pager: [phone] <Mati Barragan - Last Filed: 09/16/17 13:18> Subjective - Date & Time of Evaluation Time of Evaluation: 12:00 - Subjective Subjective: Patient was seen and examined at the bedside. Agree with resident's note above. Objective - Vital Signs/Intake and Output Vital Signs (last 24 hours): Temp Pulse Resp BP Pulse Ox 101.4 F H 99 H 19 113/73 95 09/16/17 09:00 09/16/17 09:00 09/16/17 09:00 09/16/17 09:00 09/16/17 09:00 - Medications Medications: Current Medications Acetaminophen (Tylenol 325mg Tab) 650 mg PO Q4 PRN PRN Reason: Fever >100.4 F Last Admin: 09/16/17 08:15 Dose: 650 mg Cefepime HCl 2 gm/ Sodium (Chloride) 100 mls @ 100 mls/hr IVPB Q12 SHANKAR PRN Reason: Protocol Last Admin: 09/16/17 09:21 Dose: 100 mls/hr Metronidazole (Flagyl 500mg/100ml Ns) 100 mls @ 100 mls/hr IVPB Q8 SHANKAR PRN Reason: Protocol Last Admin: 09/16/17 11:15 Dose: 100 mls/hr Fluconazole (Diflucan Iv 100 Mg/50 Ml Ns) 50 mls @ 50 mls/hr IVPB DAILY SHANKAR PRN Reason: Protocol Ketorolac Tromethamine (Toradol) 15 mg IVP Q6 PRN PRN Reason: Pain, moderate (4-7) Ketorolac Tromethamine (Toradol) 30 mg IVP Q6 PRN PRN Reason: Pain, severe (8-10) Last Admin: 09/14/17 22:17 Dose: 30 mg Ondansetron HCl (Zofran Odt) 4 mg PO Q6H PRN PRN Reason: Nausea/Vomiting - Labs Labs: 09/15/17 05:20 09/15/17 05:20
--- NOTE | 2017-09-16 16:11 | CP.PCM.PN ---
Subjective - Date & Time of Evaluation Date of Evaluation: 09/16/17 Time of Evaluation: 11:00 - Subjective Subjective: Patient seen and examined. Mild lower abdominal pain Objective - Vital Signs/Intake and Output Vital Signs (last 24 hours): Temp Pulse Resp BP Pulse Ox 100.2 F H 104 H 18 119/78 96 09/16/17 15:55 09/16/17 15:55 09/16/17 15:55 09/16/17 15:55 09/16/17 15:55 - Medications Medications: Current Medications Acetaminophen (Tylenol 325mg Tab) 650 mg PO Q4 PRN PRN Reason: Fever >100.4 F Last Admin: 09/16/17 08:15 Dose: 650 mg Metronidazole (Flagyl 500mg/100ml Ns) 100 mls @ 100 mls/hr IVPB Q8 SHANKAR PRN Reason: Protocol Last Admin: 09/16/17 11:15 Dose: 100 mls/hr Fluconazole (Diflucan Iv 100 Mg/50 Ml Ns) 50 mls @ 50 mls/hr IVPB DAILY SHANKAR PRN Reason: Protocol Meropenem 1 gm/ Sodium (Chloride) 100 mls @ 100 mls/hr IVPB Q8 SHANKAR PRN Reason: Protocol Ketorolac Tromethamine (Toradol) 15 mg IVP Q6 PRN PRN Reason: Pain, moderate (4-7) Last Admin: 09/16/17 14:10 Dose: 15 mg Ketorolac Tromethamine (Toradol) 30 mg IVP Q6 PRN PRN Reason: Pain, severe (8-10) Last Admin: 09/14/17 22:17 Dose: 30 mg Ondansetron HCl (Zofran Odt) 4 mg PO Q6H PRN PRN Reason: Nausea/Vomiting - Labs Labs: 09/15/17 05:20 09/15/17 05:20 - Constitutional Appears: No Acute Distress - Head Exam Head Exam: ATRAUMATIC - Eye Exam Eye Exam: absent: Scleral icterus - ENT Exam ENT Exam: Mucous Membranes Moist - Neck Exam Neck Exam: absent: Meningismus - Respiratory Exam Respiratory Exam: absent: Rales, Rhonchi, Wheezes, Respiratory Distress - Cardiovascular Exam Cardiovascular Exam: REGULAR RHYTHM, +S1, +S2 - GI/Abdominal Exam GI & Abdominal Exam: Soft. absent: Tenderness - Rectal Exam Rectal Exam: Deferred - Back Exam Back Exam: NORMAL INSPECTION - Neurological Exam Neurological Exam: Alert, Oriented x3 - Psychiatric Exam Psychiatric exam: Normal Affect - Skin Skin Exam: Dry, Intact Assessment and Plan - Assessment and Plan (Free Text) Assessment: 42 yo male admitted on 08/22/17 with perforated appendicitis and periappendicular abscess readmitted because of recurring lower abdominal pain accompanied with fever after drain was removed. 1.Periappendicular abscess with appendicolith CT abdomen showed smaller abscess than before cultures on last admission were positive for E.Coli sensitive to Cefepime. Started on Cefepime 1 g Iv Q12 No surgical intervention per surgery IR abscess too small to drain Continue Meropenem, Flagyl and Flucanazole ID consult with Dr Goncalves 2. DVT prophylaxis venodyne boots while in bed
[2017-09-16] MEDS: Meropenem 1 GM in Sodium Chloride 0.9% 100 ML IVPB SCH (16:32)
[2017-09-17] MEDS: metroNIDAZOLE 500mg/100ml NS 100 ML IVPB SCH ×3 (00:30→16:03)
[2017-09-17] MEDS: Meropenem 1 GM in Sodium Chloride 0.9% 100 ML IVPB SCH ×3 (01:30→17:03)
[2017-09-17 06:14] LABS: BASO % 0.2 % (0.0-2.0); EOS % 0.2 % (0.0-4.0); HEMOGLOBIN 10.7 g/dL (12.0-18.0); LYMPH # 1.5 K/uL (1.0-4.3); LYMPH % 12.4 % (20.0-40.0); MEAN CELL VOLUME 80.9 fl (80.0-94.0); MEAN CORPUSCULAR HEMOGLOBIN 26.9 pg (27.0-31.0); MEAN CORPUSCULAR HGB CONC 33.2 g/dL (33.0-37.0); MEAN PLATELET VOLUME 8.2 fl (7.2-11.7); MONO # 1.1 K/uL (0.0-0.8); MONO % 9.2 % (0.0-10.0); NEUT # 9.4 K/uL (1.8-7.0); RBC 3.97 Mil/uL (4.40-5.90); RED CELL DISTRIBUTION WIDTH 14.5 % (11.5-14.5); WHITE BLOOD COUNT 12.1 K/uL (4.8-10.8)
[2017-09-17 07:08] LABS: SQUAMOUS EPITHIAL < 1 /hpf (0-5); URINE BILIRUBIN NEGATIVE (NEGATIVE); URINE BLOOD NEGATIVE (NEGATIVE); URINE CLARITY SLIGHTY-CLOUDY (Clear); URINE COLOR AMBER (YELLOW); URINE GLUCOSE (UA) NEG (Normal); URINE LEUKOCYTE ESTERASE NEG Leu/uL (Negative); URINE PROTEIN 30 mg/dL (NEGATIVE)
--- NOTE | 2017-09-17 10:06 | CP.PCM.PN ---
Subjective - Date & Time of Evaluation Date of Evaluation: 09/17/17 Time of Evaluation: 10:06 - Subjective Subjective: ID Note- Patient seen and examined today. continues to have fevers despite being on IV abx. He c/o vomiting this morning as well and continues to have RLQ abd discomfort. denies any diarrhea. Objective - Vital Signs/Intake and Output Vital Signs (last 24 hours): Temp Pulse Resp BP Pulse Ox 98.3 F 81 19 113/69 97 09/17/17 08:06 09/17/17 08:06 09/17/17 08:06 09/17/17 08:06 09/17/17 08:06 - Medications Medications: Current Medications Acetaminophen (Tylenol 325mg Tab) 650 mg PO Q4 PRN PRN Reason: Fever >100.4 F Last Admin: 09/17/17 04:46 Dose: 650 mg Metronidazole (Flagyl 500mg/100ml Ns) 100 mls @ 100 mls/hr IVPB Q8 SHANKAR PRN Reason: Protocol Last Admin: 09/17/17 08:38 Dose: 100 mls/hr Fluconazole (Diflucan Iv 100 Mg/50 Ml Ns) 50 mls @ 50 mls/hr IVPB DAILY SHANKAR PRN Reason: Protocol Meropenem 1 gm/ Sodium (Chloride) 100 mls @ 100 mls/hr IVPB Q8 SHANKAR PRN Reason: Protocol Last Admin: 09/17/17 01:30 Dose: 100 mls/hr Ketorolac Tromethamine (Toradol) 15 mg IVP Q6 PRN PRN Reason: Pain, moderate (4-7) Last Admin: 09/16/17 14:10 Dose: 15 mg Ketorolac Tromethamine (Toradol) 30 mg IVP Q6 PRN PRN Reason: Pain, severe (8-10) Last Admin: 09/14/17 22:17 Dose: 30 mg Ondansetron HCl (Zofran Odt) 4 mg PO Q6H PRN PRN Reason: Nausea/Vomiting Last Admin: 09/17/17 08:38 Dose: 4 mg - Labs Labs: - Additional Findings Additional findings: - Constitutional Appears: No Acute Distress - Head Exam Head Exam: ATRAUMATIC - Eye Exam Eye Exam: EOMI, PERRL - ENT Exam ENT Exam: Normal Oropharynx - Respiratory Exam Respiratory Exam: Clear to Auscultation Bilateral, NORMAL BREATHING PATTERN - Cardiovascular Exam Cardiovascular Exam: RRR, +S1, +S2 - GI/Abdominal Exam GI & Abdominal Exam: Soft Additional comments: Bowel sounds present no distention Minimal tenderness in Right lower quadrant No guarding, no rebound - Extremities Exam Extremities exam: Positive for: normal inspection - Neurological Exam Neurological exam: Alert, Oriented x 3 Laboratory Results - last 72 hr 09/15/17 09/15/17 09/17/17 05:20 05:20 06:00 WBC 13.7 H 12.1 H RBC 4.33 L 3.97 L Hgb 11.6 L 10.7 L Hct 35.1 32.1 L MCV 81.0 80.9 MCH 26.7 L 26.9 L MCHC 33.0 33.2 RDW 14.9 H 14.5 Plt Count 259 268 MPV 8.2 Neut % (Auto) 78.0 H Lymph % (Auto) 12.[address] [place] % (Auto) 9.2 Eos % (Auto) 0.2 Baso % (Auto) 0.2 Neut # (Auto) 9.4 H Lymph # (Auto) 1.5 [place] # (Auto) 1.1 H Eos # (Auto) 0.0 Baso # (Auto) 0.0 Sodium 138 Potassium 4.0 Chloride 102 Carbon Dioxide 24 Anion Gap 16 BUN 10 Creatinine 0.7 L Est GFR ( Amer) > 60 Est GFR (Non-Af Amer) > 60 Random Glucose 117 H Calcium 8.7 Urine Color Urine Clarity Urine pH Ur Specific [place] Urine Protein Urine Glucose (UA) Urine Ketones Urine Blood Urine Nitrate Urine Bilirubin Urine Urobilinogen Ur Leukocyte Esterase Urine RBC (Auto) Urine Microscopic WBC Ur Squamous Epith Cells 09/17/17 06:32 WBC RBC Hgb Hct MCV MCH MCHC RDW Plt Count MPV Neut % (Auto) Lymph % (Auto) [place] % (Auto) Eos % (Auto) Baso % (Auto) Neut # (Auto) Lymph # (Auto) [place] # (Auto) Eos # (Auto) Baso # (Auto) Sodium Potassium Chloride Carbon Dioxide Anion Gap BUN Creatinine Est GFR ( Amer) Est GFR (Non-Af Amer) Random Glucose Calcium Urine Color [place] Urine Clarity Slighty-cloudy Urine pH 6.0 Ur Specific [place] 1.021 Urine Protein 30 Urine Glucose (UA) Neg Urine Ketones 80 Urine Blood Negative Urine Nitrate Negative Urine Bilirubin Negative Urine Urobilinogen 2.0 Ur Leukocyte Esterase Neg Urine RBC (Auto) 4 H Urine Microscopic WBC 5 Ur Squamous Epith Cells < 1 Microbiology 09/16/17 14:47 Blood-Venous Blood Culture - Preliminary NO GROWTH AFTER 24 HOURS 09/16/17 14:37 Blood-Venous Blood Culture - Preliminary NO GROWTH AFTER 24 HOURS 09/13/17 21:00 Blood Blood Culture - Preliminary NO GROWTH AFTER 3 DAYS 09/13/17 20:36 Blood Blood Culture - Preliminary NO GROWTH AFTER 3 DAYS Assessment and Plan (1) Intra-abdominal abscess Status: Acute (2) Abdominal pain Status: Acute (3) Fever Status: Acute - Assessment and Plan (Free Text) Assessment: A/P- 42 year old male with recent d/c from [facility] for ruptured appendicitis with tiffanie- appendeceal abscess s/p IR drainage of the abscess who now returns with abdominal pain, fever and found to have re-accumulation of the intra-abdominal abscess. continues to have temp spikes blood cx- neg x 4 Ua- neg fr LE or nitrates plan- continue with IV meropenm day #2. continue with IV flagyl as well. day #3. monitor wbc and temp closely. needs repeat abd CT and if abscess persist needs to have it drained .
--- NOTE | 2017-09-17 11:02 | CP.PCM.PN ---
<Nicole Link - Last Filed: 09/17/17 11:17> Subjective - Date & Time of Evaluation Date of Evaluation: 09/17/17 Time of Evaluation: 07:00 - Subjective Subjective: General Surgery - Dr. Chan/Yung Patient seen and examined this AM. C/o RLQ pain and chills. Febrile overnight with Tmax 101.7. Denies N/V/D. Objective - Vital Signs/Intake and Output Vital Signs (last 24 hours): Temp Pulse Resp BP Pulse Ox 100.2 F H 81 19 113/69 97 09/17/17 10:27 09/17/17 08:06 09/17/17 08:06 09/17/17 08:06 09/17/17 08:06 - Medications Medications: Current Medications Acetaminophen (Tylenol 325mg Tab) 650 mg PO Q4 PRN PRN Reason: Fever >100.4 F Last Admin: 09/17/17 04:46 Dose: 650 mg Metronidazole (Flagyl 500mg/100ml Ns) 100 mls @ 100 mls/hr IVPB Q8 SHANKAR PRN Reason: Protocol Last Admin: 09/17/17 08:38 Dose: 100 mls/hr Fluconazole (Diflucan Iv 100 Mg/50 Ml Ns) 50 mls @ 50 mls/hr IVPB DAILY SHANKAR PRN Reason: Protocol Meropenem 1 gm/ Sodium (Chloride) 100 mls @ 100 mls/hr IVPB Q8 SHANKAR PRN Reason: Protocol Last Admin: 09/17/17 10:17 Dose: 100 mls/hr Ketorolac Tromethamine (Toradol) 15 mg IVP Q6 PRN PRN Reason: Pain, moderate (4-7) Last Admin: 09/16/17 14:10 Dose: 15 mg Ketorolac Tromethamine (Toradol) 30 mg IVP Q6 PRN PRN Reason: Pain, severe (8-10) Last Admin: 09/14/17 22:17 Dose: 30 mg Ondansetron HCl (Zofran Odt) 4 mg PO Q6H PRN PRN Reason: Nausea/Vomiting Last Admin: 09/17/17 08:38 Dose: 4 mg - Labs Labs: 09/17/17 06:00 09/15/17 05:20 - Constitutional Appears: No Acute Distress - Head Exam Head Exam: ATRAUMATIC, NORMAL INSPECTION - Eye Exam Eye Exam: EOMI, Normal appearance Pupil Exam: NORMAL ACCOMODATION - ENT Exam ENT Exam: Mucous Membranes Moist - Neck Exam Neck Exam: Full ROM - Respiratory Exam Respiratory Exam: NORMAL BREATHING PATTERN. absent: Respiratory Distress - Cardiovascular Exam Cardiovascular Exam: REGULAR RHYTHM - GI/Abdominal Exam GI & Abdominal Exam: Soft, Tenderness (RLQ) - Extremities Exam Extremities Exam: Normal Inspection - Neurological Exam Neurological Exam: Alert, Awake, Oriented x3 - Psychiatric Exam Psychiatric exam: Normal Affect, Normal Mood - Skin Skin Exam: Dry, Intact, Normal Color, Warm Assessment and Plan - Assessment and Plan (Free Text) Assessment: 42yo M with previous perforated appendicitis w/ no previous surgical intervention s/p IR drain placement and removal admitted now with Intra- abdominal abscess Plan: -Continue abx/IVF -Pain control per primary team -IR recs appreciated - will continue to monitor formation of abscess Will likely need repeat CT scan in 1 week to re-evaluate abscess prior to IR intervention -No acute surgical intervention indicated at this present time Further recs as per Dr. Barragan <Mati Barragan - Last Filed: 09/17/17 16:49> Subjective - Date & Time of Evaluation Time of Evaluation: 16:05 - Subjective Subjective: Patient was seen and examined at the bedside. Agree with resident's note above. Objective - Vital Signs/Intake and Output Vital Signs (last 24 hours): Temp Pulse Resp BP Pulse Ox 101.7 F H 98 H 18 117/73 96 09/17/17 16:11 09/17/17 16:11 09/17/17 16:11 09/17/17 16:11 09/17/17 16:11 - Medications Medications: Current Medications Acetaminophen (Tylenol 325mg Tab) 650 mg PO Q4 PRN PRN Reason: Fever >100.4 F Last Admin: 09/17/17 16:05 Dose: 650 mg Metronidazole (Flagyl 500mg/100ml Ns) 100 mls @ 100 mls/hr IVPB Q8 SHANKAR PRN Reason: Protocol Last Admin: 09/17/17 16:03 Dose: 100 mls/hr Fluconazole (Diflucan Iv 100 Mg/50 Ml Ns) 50 mls @ 50 mls/hr IVPB DAILY SHANKAR PRN Reason: Protocol Last Admin: 09/17/17 11:15 Dose: 50 mls/hr Meropenem 1 gm/ Sodium (Chloride) 100 mls @ 100 mls/hr IVPB Q8 SHANKAR PRN Reason: Protocol Last Admin: 09/17/17 10:17 Dose: 100 mls/hr Ketorolac Tromethamine (Toradol) 15 mg IVP Q6 PRN PRN Reason: Pain, moderate (4-7) Last Admin: 09/16/17 14:10 Dose: 15 mg Ketorolac Tromethamine (Toradol) 30 mg IVP Q6 PRN PRN Reason: Pain, severe (8-10) Last Admin: 09/14/17 22:17 Dose: 30 mg Ondansetron HCl (Zofran Odt) 4 mg PO Q6H PRN PRN Reason: Nausea/Vomiting Last Admin: 09/17/17 16:07 Dose: 4 mg - Labs Labs: 09/17/17 06:00 09/15/17 05:20 Assessment and Plan - Assessment and Plan (Free Text) Plan: - Will follow - Continue antibiotics - Repeat labs in am
[2017-09-17] MEDS: Fluconazole IV 100mg/50 ml NS 50 ML IVPB SCH (11:15)
[2017-09-17] MEDS: Sodium Chloride 0.9% 1,000 ML IV SCH (18:42)
--- NOTE | 2017-09-17 18:48 | CP.PCM.PN ---
Subjective - Date & Time of Evaluation Date of Evaluation: 09/17/17 Time of Evaluation: 11:30 - Subjective Subjective: Patient seen and examined. Complained of mild abdominal pain which actually did not bother him. More concerning is the persistent presence of fever in spite of IV antibiotics. Objective - Vital Signs/Intake and Output Vital Signs (last 24 hours): Temp Pulse Resp BP Pulse Ox 101.1 F H 98 H 18 117/73 96 09/17/17 17:23 09/17/17 16:11 09/17/17 16:11 09/17/17 16:11 09/17/17 16:11 - Medications Medications: Current Medications Acetaminophen (Tylenol 325mg Tab) 650 mg PO Q4 PRN PRN Reason: Fever >100.4 F Last Admin: 09/17/17 16:05 Dose: 650 mg Metronidazole (Flagyl 500mg/100ml Ns) 100 mls @ 100 mls/hr IVPB Q8 SHANKAR PRN Reason: Protocol Last Admin: 09/17/17 16:03 Dose: 100 mls/hr Fluconazole (Diflucan Iv 100 Mg/50 Ml Ns) 50 mls @ 50 mls/hr IVPB DAILY SHANKAR PRN Reason: Protocol Last Admin: 09/17/17 11:15 Dose: 50 mls/hr Meropenem 1 gm/ Sodium (Chloride) 100 mls @ 100 mls/hr IVPB Q8 SHANKAR PRN Reason: Protocol Last Admin: 09/17/17 17:03 Dose: 100 mls/hr Sodium Chloride (Sodium Chloride 0.9%) 1,000 mls @ 100 mls/hr IV .Q10H [facility] Stop: 09/18/17 17:50 Last Admin: 09/17/17 18:42 Dose: Not Given Ketorolac Tromethamine (Toradol) 15 mg IVP Q6 PRN PRN Reason: Pain, moderate (4-7) Last Admin: 09/16/17 14:10 Dose: 15 mg Ketorolac Tromethamine (Toradol) 30 mg IVP Q6 PRN PRN Reason: Pain, severe (8-10) Last Admin: 09/14/17 22:17 Dose: 30 mg Ondansetron HCl (Zofran Odt) 4 mg PO Q6H PRN PRN Reason: Nausea/Vomiting Last Admin: 06/19/18 16:07 Dose: 4 mg - Labs Labs: 09/17/17 06:00 09/15/17 05:20 - Constitutional Appears: No Acute Distress - Head Exam Head Exam: ATRAUMATIC - Eye Exam Eye Exam: absent: Scleral icterus - ENT Exam ENT Exam: Mucous Membranes Moist - Neck Exam Neck Exam: absent: Meningismus - Respiratory Exam Respiratory Exam: absent: Rales, Rhonchi, Wheezes, Respiratory Distress - Cardiovascular Exam Cardiovascular Exam: REGULAR RHYTHM, +S1, +S2 - GI/Abdominal Exam GI & Abdominal Exam: Soft. absent: Tenderness - Rectal Exam Rectal Exam: Deferred - Extremities Exam Extremities Exam: absent: Pedal Edema - Back Exam Back Exam: absent: tenderness - Neurological Exam Neurological Exam: Alert, Oriented x3 - Psychiatric Exam Psychiatric exam: Normal Affect - Skin Skin Exam: Dry, Intact Assessment and Plan - Assessment and Plan (Free Text) Assessment: 42 yo male admitted on 08/22/17 with perforated appendicitis and periappendicular abscess readmitted because of recurring lower abdominal pain accompanied with fever after drain was removed. 1. Periappendicular abscess with appendicolith continued to have fever, abdl pain very tolerable CT abdomen showed smaller abscess than before cultures on previous admission were positive for E.Coli sensitive to Cefepime. No surgical intervention as per surgery IR also abstained claiming abscess too small to drain Continue IV Meropenem, Flagyl and Flucanazole ID consult with Dr Goncalves appreciated abscess need to be drained either by IR or surgery 2. DVT prophylaxis venodyne boots while in bed
[2017-09-18] MEDS: metroNIDAZOLE 500mg/100ml NS 100 ML IVPB SCH ×3 (00:39→17:00)
[2017-09-18] MEDS: Meropenem 1 GM in Sodium Chloride 0.9% 100 ML IVPB SCH ×3 (01:39→18:00)
[2017-09-18] MEDS: Sodium Chloride 0.9% 1,000 ML IV SCH ×2 (03:29→14:26)
[2017-09-18 06:53] LABS: BASO % 0.3 % (0.0-2.0); EOS % 0.3 % (0.0-4.0); LYMPH # 1.8 K/uL (1.0-4.3); LYMPH % 16.8 % (20.0-40.0); MEAN CELL VOLUME 81.8 fl (80.0-94.0); MONO # 0.8 K/uL (0.0-0.8); MONO % 6.9 % (0.0-10.0); NEUT # 8.3 K/uL (1.8-7.0); NEUT % 75.7 % (50.0-75.0); RBC 4.08 Mil/uL (4.40-5.90); RED CELL DISTRIBUTION WIDTH 14.8 % (11.5-14.5)
[2017-09-18] MEDS: Fluconazole IV 100mg/50 ml NS 50 ML IVPB SCH (08:49)
--- NOTE | 2017-09-18 11:08 | CP.PCM.PN ---
Subjective - Date & Time of Evaluation Date of Evaluation: 09/18/17 Time of Evaluation: 11:08 - Subjective Subjective: ID Note- Patient seen and examined today.patient states he feels better today. denies any fever today. denies any nausea or vomiting today and was able to eat today. Objective - Vital Signs/Intake and Output Vital Signs (last 24 hours): Temp Pulse Resp BP Pulse Ox 98.3 F 76 20 124/78 96 09/18/17 08:13 09/18/17 08:13 09/18/17 08:13 09/18/17 08:13 09/18/17 08:13 - Medications Medications: Current Medications Acetaminophen (Tylenol 325mg Tab) 650 mg PO Q4 PRN PRN Reason: Fever >100.4 F Last Admin: 09/17/17 20:12 Dose: 650 mg Metronidazole (Flagyl 500mg/100ml Ns) 100 mls @ 100 mls/hr IVPB Q8 SHANKAR PRN Reason: Protocol Last Admin: 09/18/17 08:47 Dose: 100 mls/hr Fluconazole (Diflucan Iv 100 Mg/50 Ml Ns) 50 mls @ 50 mls/hr IVPB DAILY SHANKAR PRN Reason: Protocol Last Admin: 09/18/17 08:49 Dose: 50 mls/hr Meropenem 1 gm/ Sodium (Chloride) 100 mls @ 100 mls/hr IVPB Q8 SHANKAR PRN Reason: Protocol Last Admin: 09/18/17 08:45 Dose: 100 mls/hr Sodium Chloride (Sodium Chloride 0.9%) 1,000 mls @ 100 mls/hr IV .Q10H [facility] Stop: 09/18/17 17:50 Last Admin: 09/18/17 03:29 Dose: 100 mls/hr Ketorolac Tromethamine (Toradol) 15 mg IVP Q6 PRN PRN Reason: Pain, moderate (4-7) Last Admin: 09/18/17 01:40 Dose: 15 mg Ketorolac Tromethamine (Toradol) 30 mg IVP Q6 PRN PRN Reason: Pain, severe (8-10) Last Admin: 09/14/17 22:17 Dose: 30 mg Ondansetron HCl (Zofran Odt) 4 mg PO Q6H PRN PRN Reason: Nausea/Vomiting Last Admin: 09/17/17 16:07 Dose: 4 mg - Labs Labs: - Additional Findings Additional findings: - Constitutional Appears: No Acute Distress - Head Exam Head Exam: ATRAUMATIC - Eye Exam Eye Exam: EOMI, PERRL - ENT Exam ENT Exam: Normal Oropharynx - Respiratory Exam Respiratory Exam: Clear to Auscultation Bilateral, NORMAL BREATHING PATTERN - Cardiovascular Exam Cardiovascular Exam: RRR, +S1, +S2 - GI/Abdominal Exam GI & Abdominal Exam: Soft Additional comments: Bowel sounds present no distention no tenderness No guarding, no rebound - Extremities Exam Extremities exam: Positive for: normal inspection - Neurological Exam Neurological exam: Alert, Oriented x 3 Laboratory Results - last 72 hr 09/17/17 09/17/17 09/18/17 06:00 06:32 06:15 WBC 12.1 H 11.0 H RBC 3.97 L 4.08 L Hgb 10.7 L 11.0 L Hct 32.1 L 33.4 L MCV 80.9 81.8 MCH 26.9 L 27.0 MCHC 33.2 33.0 RDW 14.5 14.8 H Plt Count 268 276 MPV 8.2 8.0 Neut % (Auto) 78.0 H 75.7 H Lymph % (Auto) 12.4 L 16.8 L [place] % (Auto) 9.2 6.9 Eos % (Auto) 0.2 0.3 Baso % (Auto) 0.2 0.3 Neut # (Auto) 9.4 H 8.3 H Lymph # (Auto) 1.5 1.8 [place] # (Auto) 1.1 H 0.8 Eos # (Auto) 0.0 0.0 Baso # (Auto) 0.0 0.0 Urine Color [place] Urine Clarity Slighty-cloudy Urine pH 6.0 Ur Specific [place] 1.021 Urine Protein 30 Urine Glucose (UA) Neg Urine Ketones 80 Urine Blood Negative Urine Nitrate Negative Urine Bilirubin Negative Urine Urobilinogen 2.0 Ur Leukocyte Esterase Neg Urine RBC (Auto) 4 H Urine Microscopic WBC 5 Ur Squamous Epith Cells < 1 Microbiology 09/17/17 06:32 Urine Urine Culture - Final No Growth (<1,000 CFU/ML) 09/13/17 21:00 Blood Blood Culture - Preliminary NO GROWTH AFTER 4 DAYS 09/13/17 20:36 Blood Blood Culture - Preliminary NO GROWTH AFTER 4 DAYS 09/16/17 14:47 Blood-Venous Blood Culture - Preliminary NO GROWTH AFTER 24 HOURS 09/16/17 14:37 Blood-Venous Blood Culture - Preliminary NO GROWTH AFTER 24 HOURS Assessment and Plan (1) Intra-abdominal abscess Status: Acute (2) Abdominal pain Status: Acute (3) Fever Status: Acute - Assessment and Plan (Free Text) Assessment: A/P- 42 year old male with recent d/c from [facility] for ruptured appendicitis with tiffanie- appendeceal abscess s/p IR drainage of the abscess who now returns with abdominal pain, fever and found to have re-accumulation of the intra-abdominal abscess. clinically better today afebrile today blood cx- neg x 4 Ua- neg fr LE or nitrates plan- continue with IV meropenm day #3. continue with IV flagyl as well. day #4. monitor wbc and temp closely. needs repeat abd CT to see if abscess persists.
--- NOTE | 2017-09-18 14:27 | CP.PCM.PN ---
Subjective - Date & Time of Evaluation Date of Evaluation: 09/18/17 Time of Evaluation: 14:05 - Subjective Subjective: Patient was seen and examined at the bedside. States feels better. Objective - Vital Signs/Intake and Output Vital Signs (last 24 hours): Temp Pulse Resp BP Pulse Ox 98.3 F 76 20 124/78 96 09/18/17 08:13 09/18/17 08:13 09/18/17 08:13 09/18/17 08:13 09/18/17 08:13 - Medications Medications: Current Medications Acetaminophen (Tylenol 325mg Tab) 650 mg PO Q4 PRN PRN Reason: Fever >100.4 F Last Admin: 09/17/17 20:12 Dose: 650 mg Metronidazole (Flagyl 500mg/100ml Ns) 100 mls @ 100 mls/hr IVPB Q8 SHANKAR PRN Reason: Protocol Last Admin: 09/18/17 08:47 Dose: 100 mls/hr Fluconazole (Diflucan Iv 100 Mg/50 Ml Ns) 50 mls @ 50 mls/hr IVPB DAILY SHANKAR PRN Reason: Protocol Last Admin: 09/18/17 08:49 Dose: 50 mls/hr Meropenem 1 gm/ Sodium (Chloride) 100 mls @ 100 mls/hr IVPB Q8 SHANKAR PRN Reason: Protocol Last Admin: 09/18/17 08:45 Dose: 100 mls/hr Sodium Chloride (Sodium Chloride 0.9%) 1,000 mls @ 100 mls/hr IV .Q10H [facility] Stop: 09/18/17 17:50 Last Admin: 09/18/17 03:29 Dose: 100 mls/hr Ketorolac Tromethamine (Toradol) 15 mg IVP Q6 PRN PRN Reason: Pain, moderate (4-7) Last Admin: 09/18/17 01:40 Dose: 15 mg Ketorolac Tromethamine (Toradol) 30 mg IVP Q6 PRN PRN Reason: Pain, severe (8-10) Last Admin: 09/14/17 22:17 Dose: 30 mg Ondansetron HCl (Zofran Odt) 4 mg PO Q6H PRN PRN Reason: Nausea/Vomiting Last Admin: 09/17/17 16:07 Dose: 4 mg - Labs Labs: 09/18/17 06:15 09/15/17 05:20 - Constitutional Appears: Well, Non-toxic, No Acute Distress - Head Exam Head Exam: ATRAUMATIC, NORMAL INSPECTION, NORMOCEPHALIC - Eye Exam Eye Exam: EOMI, Normal appearance, PERRL Pupil Exam: NORMAL ACCOMODATION, PERRL - ENT Exam ENT Exam: Mucous Membranes Moist, Normal Exam - Neck Exam Neck Exam: Full ROM, Normal Inspection - Respiratory Exam Respiratory Exam: Clear to Ausculation Bilateral, NORMAL BREATHING PATTERN - Cardiovascular Exam Cardiovascular Exam: REGULAR RHYTHM, +S1, +S2 - GI/Abdominal Exam GI & Abdominal Exam: Soft, Normal Bowel Sounds Additional comments: NT, ND, no rebound, no guarding - Rectal Exam Rectal Exam: Deferred - Extremities Exam Extremities Exam: Full ROM, Normal Inspection - Neurological Exam Neurological Exam: Alert, Awake, Oriented x3 - Psychiatric Exam Psychiatric exam: Normal Affect, Normal Mood - Skin Skin Exam: Dry, Intact, Normal Color, Warm Assessment and Plan - Assessment and Plan (Free Text) Assessment: 42 y.o. male with perforated appendicitis Plan: - Continue diet - Continue antibiotics - Pain control - repeat CT scan of the abdomen/pelvis tomorrow - repeat labs in am - Will follow
[2017-09-18 16:36] VITALS: O2SAT 98
--- NOTE | 2017-09-18 16:47 | CP.PCM.PN ---
Subjective - Date & Time of Evaluation Date of Evaluation: 09/18/17 Time of Evaluation: 12:30 - Subjective Subjective: Pt still afebrile Leukocytosis trending down good PO intake + BM denies abd pain at present no CP no SOB Objective - Vital Signs/Intake and Output Vital Signs (last 24 hours): Temp Pulse Resp BP Pulse Ox 98.5 F 82 18 120/77 98 09/18/17 16:35 09/18/17 16:35 09/18/17 16:35 09/18/17 16:35 09/18/17 16:35 - Medications Medications: Current Medications Acetaminophen (Tylenol 325mg Tab) 650 mg PO Q4 PRN PRN Reason: Fever >100.4 F Last Admin: 09/17/17 20:12 Dose: 650 mg Metronidazole (Flagyl 500mg/100ml Ns) 100 mls @ 100 mls/hr IVPB Q8 SHANKAR PRN Reason: Protocol Last Admin: 09/18/17 08:47 Dose: 100 mls/hr Fluconazole (Diflucan Iv 100 Mg/50 Ml Ns) 50 mls @ 50 mls/hr IVPB DAILY SHANKAR PRN Reason: Protocol Last Admin: 09/18/17 08:49 Dose: 50 mls/hr Meropenem 1 gm/ Sodium (Chloride) 100 mls @ 100 mls/hr IVPB Q8 SHANKAR PRN Reason: Protocol Last Admin: 09/18/17 08:45 Dose: 100 mls/hr Sodium Chloride (Sodium Chloride 0.9%) 1,000 mls @ 100 mls/hr IV .Q10H [facility] Stop: 09/18/17 17:50 Last Admin: 09/18/17 03:29 Dose: 100 mls/hr Iohexol (Omnipaque 240 (50 Ml)) 50 ml PO ONCE ONE Stop: 09/19/17 06:01 Ketorolac Tromethamine (Toradol) 15 mg IVP Q6 PRN PRN Reason: Pain, moderate (4-7) Last Admin: 09/18/17 01:40 Dose: 15 mg Ketorolac Tromethamine (Toradol) 30 mg IVP Q6 PRN PRN Reason: Pain, severe (8-10) Last Admin: 09/14/17 22:17 Dose: 30 mg Ondansetron HCl (Zofran Odt) 4 mg PO Q6H PRN PRN Reason: Nausea/Vomiting Last Admin: 09/17/17 16:07 Dose: 4 mg - Labs Labs: 09/18/17 06:15 09/15/17 05:20 - Constitutional Appears: No Acute Distress - Head Exam Head Exam: ATRAUMATIC, NORMAL INSPECTION, NORMOCEPHALIC - Eye Exam Eye Exam: EOMI, Normal appearance, PERRL Pupil Exam: NORMAL ACCOMODATION - Neck Exam Neck Exam: Full ROM. absent: Meningismus - Respiratory Exam Respiratory Exam: NORMAL BREATHING PATTERN. absent: Respiratory Distress - Cardiovascular Exam Cardiovascular Exam: REGULAR RHYTHM, +S1, +S2 - GI/Abdominal Exam GI & Abdominal Exam: Soft, Normal Bowel Sounds. absent: Tenderness - Extremities Exam Extremities Exam: Full ROM, Normal Capillary Refill. absent: Calf Tenderness, Pedal Edema - Back Exam Back Exam: Full ROM. absent: CVA tenderness (L), CVA tenderness (R) - Neurological Exam Neurological Exam: Alert, Awake, CN II-XII Intact, Oriented x3 Neuro motor strength exam: Left Upper Extremity: 5, Right Upper Extremity: 5, Left Lower Extremity: 5, Right Lower Extremity: 5 - Psychiatric Exam Psychiatric exam: Normal Affect, Normal Mood - Skin Skin Exam: Dry, Normal Color, Warm Assessment and Plan - Assessment and Plan (Free Text) Assessment: 42 years old male was last admitted on 08/22/17 and dx with Perforated Appendicitis and Periappendiceal abscess . IR drainage of abscess done with Pigtail placement on 08/27/17. He was discharged on 08/19/17 with follow up with Dr Chan. The drain was removed on 09/11/17. He came back bec of intermittent cramping pain across the periumbilical region and fever. Ct of the Abdomen : Interval removal of previously placed right lower quadrant pigtail drainage catheter with persistent inflammation of the periappendiceal stump and smaller than before 3.9 x 2.4 cm periappendiceal phlegmonous area of fluid again noted to contain multiple small appendicoliths. The periappendiceal collection does not a completely defined wall suggesting reaccumulation as opposed to persistent collection from incomplete drainage. Appendicoliths can serve as a nidus for continued/recurrent infection if not removed. Cecal and terminal ileal wall thickening is likely reactive to the appendiceal process. 1. Periappendiceal abscess with appendicolith Recent Perforated Appendicitis still with fever, WBC ct improved to 11k from 14k cultures on previous admission were positive for E.Coli sensitive to Cefepime. No surgical intervention as per surgery IR consulted - abscess too small to drain Continue IV Meropenem, Flagyl and Fluconazole ID consulted - Dr Goncalves Plan for rpt CT scan of the abdomen Saturday 2. DVT prophylaxis venodyne boots while in bed
[2017-09-19] MEDS: Meropenem 1 GM in Sodium Chloride 0.9% 100 ML IVPB SCH ×2 (01:06→08:26)
[2017-09-19] MEDS: metroNIDAZOLE 500mg/100ml NS 100 ML IVPB SCH ×2 (01:07→08:25)
[2017-09-19] MEDS ORDERED: Iohexol 240 (50 ml) PO ONE (06:00)
[2017-09-19 06:50] LABS: BASO % 0.4 % (0.0-2.0); EOS # 0.1 K/uL (0.0-0.7); EOS % 1.3 % (0.0-4.0); HEMOGLOBIN 11.6 g/dL (12.0-18.0); LYMPH # 2.1 K/uL (1.0-4.3); LYMPH % 28.6 % (20.0-40.0); MEAN CELL VOLUME 81.7 fl (80.0-94.0); MEAN CORPUSCULAR HEMOGLOBIN 26.7 pg (27.0-31.0); MEAN CORPUSCULAR HGB CONC 32.6 g/dL (33.0-37.0); MEAN PLATELET VOLUME 8.3 fl (7.2-11.7); MONO # 0.6 K/uL (0.0-0.8); MONO % 7.9 % (0.0-10.0); NEUT # 4.5 K/uL (1.8-7.0); NEUT % 61.8 % (50.0-75.0); RBC 4.35 Mil/uL (4.40-5.90); RED CELL DISTRIBUTION WIDTH 14.6 % (11.5-14.5); WHITE BLOOD COUNT 7.3 K/uL (4.8-10.8)
[2017-09-19 07:10] LABS: BLOOD UREA NITROGEN 7 mg/dl (9-20); GFR AFRICAN-AMERICAN > 60; GFR NON-AFRICAN AMERICAN > 60
[2017-09-19] MEDS ORDERED: Sodium Chloride 0.9% 50 ML IV ONE (07:47)
[2017-09-19] MEDS ORDERED: Iohexol 300 100 ML IJ ONE (07:47)
[2017-09-19 07:56] VITALS: BP 120/84; PULSE 78; RESP 20; TEMP 97.3
[2017-09-19] MEDS: Fluconazole IV 100mg/50 ml NS 50 ML IVPB SCH (08:26)
--- NOTE | 2017-09-19 10:15 | CP.PCM.PN ---
Subjective - Date & Time of Evaluation Date of Evaluation: 09/19/17 Time of Evaluation: 10:14 - Subjective Subjective: Pt seen and examined this AM. Reports he feel well. Denies abdominal pain, n/v /d/c. Afebrile. Labs and vitals noted. WBC improved. PE Gen: Pt laying in bed in NAD Skin: warm and dry Cardio: s1s2 rrr Lungs: CTA bilaterally Abd: Soft NTND Extr: (-) calf tenderness A/P Abdominal Abscess s/p perforated appendicitis Pt feels much better, continue solids. CT scan results pending If improvement noted on CT, pt to be discharged home with PO antibiotics per ID recommendations and pain medicine (RX left in paper chart for percocet) prn Objective - Vital Signs/Intake and Output Vital Signs (last 24 hours): Temp Pulse Resp BP Pulse Ox 97.3 F L 78 20 120/84 98 09/19/17 07:55 09/19/17 07:55 09/19/17 07:55 09/19/17 07:55 09/19/17 07:55 - Medications Medications: Current Medications Acetaminophen (Tylenol 325mg Tab) 650 mg PO Q4 PRN PRN Reason: Fever >100.4 F Last Admin: 09/17/17 20:12 Dose: 650 mg Metronidazole (Flagyl 500mg/100ml Ns) 100 mls @ 100 mls/hr IVPB Q8 SHANKAR PRN Reason: Protocol Last Admin: 09/19/17 08:25 Dose: 100 mls/hr Fluconazole (Diflucan Iv 100 Mg/50 Ml Ns) 50 mls @ 50 mls/hr IVPB DAILY SHANKAR PRN Reason: Protocol Last Admin: 09/19/17 08:26 Dose: 50 mls/hr Meropenem 1 gm/ Sodium (Chloride) 100 mls @ 100 mls/hr IVPB Q8 SHANKAR PRN Reason: Protocol Last Admin: 09/19/17 08:26 Dose: 100 mls/hr Ketorolac Tromethamine (Toradol) 15 mg IVP Q6 PRN PRN Reason: Pain, moderate (4-7) Last Admin: 09/18/17 01:40 Dose: 15 mg Ketorolac Tromethamine (Toradol) 30 mg IVP Q6 PRN PRN Reason: Pain, severe (8-10) Last Admin: 09/14/17 22:17 Dose: 30 mg Ondansetron HCl (Zofran Odt) 4 mg PO Q6H PRN PRN Reason: Nausea/Vomiting Last Admin: 09/17/17 16:07 Dose: 4 mg - Labs Labs: 09/19/17 05:55 09/19/17 05:55 Assessment and Plan - Assessment and Plan (Free Text) Assessment: .
--- NOTE | 2017-09-19 11:22 | CT ---
PROCEDURE: CT Abdomen and Pelvis with contrast HISTORY: r/o intra-abdominal abscess COMPARISON: Abdomen pelvis CT with contrast 09/13/2017. TECHNIQUE: Contrast dose: Omnipaque 300, 95 cc. Radiation dose: Total exam DLP = 638.73 mGy-cm. This CT exam was performed using one or more of the following dose reduction techniques: Automated exposure control, adjustment of the mA and/or kV according to patient size, and/or use of iterative reconstruction technique. FINDINGS: LOWER THORAX: Linear atelectasis reiterated at the bilateral bases if not slightly increased. LIVER: Hepatic steatosis reiterated. GALLBLADDER AND BILE DUCTS: Unremarkable. PANCREAS: Unremarkable. No gross lesion or ductal dilatation. SPLEEN: Unremarkable. ADRENALS: Unremarkable. No mass. KIDNEYS AND URETERS: Unremarkable. No hydronephrosis. No solid mass. VASCULATURE: Unremarkable. No aortic aneurysm. BOWEL: Send limited diminished cecal basilar edema as well as appendiceal stump edema. Terminal ileum edema is also reduced in the interval. In area inferomedial to the cecum within previously described is phlegmon also appears diminished in volume but is difficult to measure due to its poorly defined periphery. Tiny specks of loculated extra luminal gas are suspected. Appendecoliths remain suggested within this location. Continued clinical and CT monitoring are recommended. APPENDIX: Apparently post appendectomy. PERITONEUM: See bowel section above. The remainder of the perineum is unremarkable. LYMPH NODES: Unremarkable. No enlarged lymph nodes. BLADDER: Unremarkable. REPRODUCTIVE: Unremarkable. BONES: No acute fracture. OTHER FINDINGS: None. IMPRESSION: Improving post appendectomy cecal, terminal ileal and appendiceal stump inflammation as well as phlegmon inferomedial to cecal base. Appendecoliths again suggested. Hepatic steatosis.
--- NOTE | 2017-09-19 14:16 | CP.PCM.DIS ---
Provider - Provider Date of Admission: 09/16/17 08:48 Attending physician: Toni Lopez Primary care physician: none Consults: surgery consult ID consult IR consult Time Spent in preparation of Discharge (in minutes): 15 Hospital Course - Lab Results Lab Results: Micro Results 09/13/17 21:00 Blood Blood Culture - Final NO GROWTH AFTER 5 DAYS 09/13/17 21:00 Blood Gram Stain - Final TEST NOT PERFORMED 09/13/17 20:36 Blood Blood Culture - Final NO GROWTH AFTER 5 DAYS 09/13/17 20:36 Blood Gram Stain - Final TEST NOT PERFORMED 09/16/17 14:47 Blood-Venous Blood Culture - Preliminary NO GROWTH AFTER 48 HOURS 09/16/17 14:37 Blood-Venous Blood Culture - Preliminary NO GROWTH AFTER 48 HOURS 09/17/17 06:32 Urine Urine Culture - Final No Growth (<1,000 CFU/ML) Most Recent Lab Values WBC 7.3 K/uL (4.8-10.8) 09/19/17 05:55 RBC 4.35 Mil/uL (4.40-5.90) L 09/19/17 05:55 Hgb 11.6 g/dL (12.0-18.0) L 09/19/17 05:55 Hct 35.5 % (35.0-51.0) 09/19/17 05:55 MCV 81.7 fl (80.0-94.0) 09/19/17 05:55 MCH 26.7 pg (27.0-31.0) L 09/19/17 05:55 MCHC 32.6 g/dL (33.0-37.0) L 09/19/17 05:55 RDW 14.6 % (11.5-14.5) H 09/19/17 05:55 Plt Count 321 K/uL (130-400) 09/19/17 05:55 MPV 8.3 fl (7.2-11.7) 09/19/17 05:55 Neut % (Auto) 61.8 % (50.0-75.0) 09/19/17 05:55 Lymph % (Auto) 28.6 % (20.0-40.0) 09/19/17 05:55 [place] % (Auto) 7.9 % (0.0-10.0) 09/19/17 05:55 Eos % (Auto) 1.3 % (0.0-4.0) 09/19/17 05:55 Baso % (Auto) 0.4 % (0.0-2.0) 09/19/17 05:55 Neut # (Auto) 4.5 K/uL (1.8-7.0) 09/19/17 05:55 Lymph # (Auto) 2.1 K/uL (1.0-4.3) 09/19/17 05:55 [place] # (Auto) 0.6 K/uL (0.0-0.8) 09/19/17 05:55 Eos # (Auto) 0.1 K/uL (0.0-0.7) 09/19/17 05:55 Baso # (Auto) 0.0 K/uL (0.0-0.2) 09/19/17 05:55 pO2 38 mm/Hg (30-55) 09/13/17 21:03 VBG pH 7.42 (7.32-7.43) 09/13/17 21:03 VBG pCO2 40 mmHg (40-60) 09/13/17 21:03 VBG HCO3 25.3 mmol/L 09/13/17 21:03 VBG Total CO2 27.1 mmol/L (22-28) 09/13/17 21:03 VBG O2 Sat (Calc) 76.5 % (40-65) H 09/13/17 21:03 VBG Base Excess 1.3 mmol/L (0.0-2.0) 09/13/17 21:03 VBG Potassium 3.8 mmol/L (3.6-5.2) 09/13/17 21:03 Sodium 135.0 mmol/L (132-148) 09/13/17 21:03 Chloride 102.0 mmol/L (98-107) 09/13/17 21:03 Glucose 120 mg/dL (75-110) H 09/13/17 21:03 Lactate 1.1 mmol/L (0.7-2.1) 09/13/17 21:03 FiO2 21.0 % 09/13/17 21:03 Sodium 143 mmol/l (132-148) 09/19/17 05:55 Potassium 3.9 MMOL/L (3.6-5.0) 09/19/17 05:55 Chloride 104 mmol/L (98-107) 09/19/17 05:55 Carbon Dioxide 26 mmol/L (22-30) 09/19/17 05:55 Anion Gap 17 (10-20) 09/19/17 05:55 BUN 7 mg/dl (9-20) L 09/19/17 05:55 Creatinine 0.6 mg/dl (0.8-1.5) L 09/19/17 05:55 Est GFR ( Amer) > 60 09/19/17 05:55 Est GFR (Non-Af Amer) > 60 09/19/17 05:55 Random Glucose 109 mg/dL (75-110) 09/19/17 05:55 Calcium 9.0 mg/dL (8.4-10.2) 09/19/17 05:55 Total Bilirubin 1.7 mg/dl (0.2-1.3) H 09/13/17 20:48 AST 18 U/L (17-59) 09/13/17 20:48 ALT 36 U/L (21-72) 09/13/17 20:48 Alkaline Phosphatase 96 U/L (38-126) 09/13/17 20:48 Total Protein 8.1 G/DL (6.3-8.2) 09/13/17 20:48 Albumin 4.0 g/dL (3.5-5.0) 09/13/17 20:48 Globulin 4.1 gm/dL (2.2-3.9) H 09/13/17 20:48 Albumin/Globulin Ratio 1.0 (1.0-2.1) 09/13/17 20:48 Venous Blood Potassium 3.8 mmol/L (3.6-5.2) 09/13/17 21:03 Urine Color Karina (YELLOW) 09/17/17 06:32 Urine Clarity Slighty-cloudy (Clear) 09/17/17 06:32 Urine pH 6.0 (5.0-8.0) 09/17/17 06:32 Ur Specific [place] 1.021 (1.003-1.030) 09/17/17 06:32 Urine Protein 30 mg/dL (NEGATIVE) 09/17/17 06:32 Urine Glucose (UA) Neg mg/dL (Normal) 09/17/17 06:32 Urine Ketones 80 mg/dL (NEGATIVE) 09/17/17 06:32 Urine Blood Negative (NEGATIVE) 09/17/17 06:32 Urine Nitrate Negative (NEGATIVE) 09/17/17 06:32 Urine Bilirubin Negative (NEGATIVE) 09/17/17 06:32 Urine Urobilinogen 2.0 mg/dL (0.2-1.0) 09/17/17 06:32 Ur Leukocyte Esterase Neg Deon/uL (Negative) 09/17/17 06:32 Urine RBC (Auto) 4 /hpf (0-3) H 09/17/17 06:32 Urine Microscopic WBC 5 /hpf (0-5) 09/17/17 06:32 Ur Squamous Epith Cells < 1 /hpf (0-5) 09/17/17 06:32 - Hospital Course Hospital Course: 42 years old male was last admitted on 08/22/17 and dx with Perforated Appendicitis and Periappendiceal abscess . IR drainage of abscess done with Pigtail placement on 08/27/17. He was discharged on 08/19/17 with follow up with Dr Chan. The drain was removed on 09/11/17. He came back bec of intermittent cramping pain across the periumbilical region and fever.He wsa found to have elevated WBC count [address] of the Abdomen showed Interval removal of previously placed right lower quadrant pigtail drainage catheter with persistent inflammation of the periappendiceal stump and smaller than before 3.9 x 2.4 cm periappendiceal phlegmonous area of fluid again noted to contain multiple small appendicoliths. The periappendiceal collection does not a completely defined wall suggesting reaccumulation as opposed to persistent collection from incomplete drainage. Appendicoliths can serve as a nidus for continued/recurrent infection if not removed. Cecal and terminal ileal wall thickening is likely reactive to the appendiceal process. Patienbt was admitted for periappendiceal abscess with apendicolith and strated on IV antibiotics. Surgery and IR were consulted . As per IR abscess was too small to drain . Surgery recommended continuation ofd IV antibiotics and no surgical intervention at this time. Previous cultures from abscess were positive for E. Coli. Id was consulted for help with IV antibiotics since patient continued to be febrile. Antibiotics were changed to Meropenem , Diflucan and Flagyl. Patient clinically improved , afebrile for > 24 hours and WBC normalized to 7 K. He is tolerating po intake and pain has significantly improved .Repeat CT abdomen showed improvement of abscess . Cleared by surgery for discharge on Po antibiotics. Discussed with ID .Will discharge patient on PO Ciprop and Flagyl Po for 10 more days and with close follow up with surgery in 1 week 1. Periappendiceal abscess with appendicolith Recent Perforated Appendicitis cultures on previous admission were positive for E.Coli sensitive to Cefepime. No surgical intervention as per surgery IR consulted - abscess too small to drain Receive IV Meropenem, Flagyl and Fluconazole ID consulted - Dr Goncalves Plan CT scan of the abdomen showed improvement Cleared by surgery for discharge on Po antibiotics. Will d/c on Ciporo and Flagyl PO for 10 more days Follow up with Dr. Barragan in 1week Discharge Exam - Head Exam Head Exam: ATRAUMATIC, NORMAL INSPECTION, NORMOCEPHALIC - Eye Exam Eye Exam: EOMI, Normal appearance, PERRL Pupil Exam: NORMAL ACCOMODATION - ENT Exam ENT Exam: Mucous Membranes Moist, Normal Exam - Neck Exam Neck exam: Full Rom, Normal Inspection - Respiratory Exam Respiratory Exam: Clear to PA & Lateral, NORMAL BREATHING PATTERN. absent: Rales, Rhonchi, Wheezes - Cardiovascular Exam Cardiovascular Exam: REGULAR RHYTHM, RRR, +S1, +S2. absent: JVD - GI/Abdominal Exam GI & Abdominal Exam: Normal Bowel Sounds, Soft. absent: Distended, Guarding, Rebound, Tenderness - Rectal Exam Rectal Exam: Deferred - Extremities Exam Extremities exam: normal capillary refill, normal inspection, pedal pulses present - Back Exam Back exam: NORMAL INSPECTION - Neurological Exam Neurological exam: Alert, CN II-XII Intact, Oriented x3, Reflexes Normal - Psychiatric Exam Psychiatric exam: Normal Affect, Normal Mood - Skin Skin Exam: Dry, Intact, Normal Color, Warm Discharge Plan - Discharge Medications Prescriptions: Ciprofloxacin HCl [Cipro] 500 mg PO Q12 #20 tab Metronidazole [Flagyl] 500 mg PO TID #30 tablet - Follow Up Plan Condition: STABLE Disposition: HOME/ ROUTINE Patient education suggested?: Yes Instructions: Appendicitis, Adult (DC) Referrals: Mati Barragan MD [Staff Provider] -
== END 2017-09-19 17:11 | disposition home or self-care (01) | DRG 895 ==
LOC: H.ER 19:02 → INTOOBSV 23:25 → H.ERHOLD 23:25 → H.MEDSURG1 09-14 01:53 → OBSVTOIN 09-16 08:48
PROVIDERS: ADMIT Internal Medicine; ATTEND Internal Medicine
DX: K65.1 Peritoneal abscess (principal); K38.1 Appendicular concretions